=== PATIENT | male | born 1960 | race Caucasian/White ===

== ENCOUNTER 2019-09-27 14:22 | Inpatient (IN) | payer MEDICAID ==
[~2019-09-27] VITALS: Ht 167.6 cm; Wt 100.1 kg
[2019-09-27 15:48] LABS: ALANINE AMINOTRANSFERASE 44 U/L (12-78); ALBUMIN 3.2 G/DL (3.4-5.0); ALKALINE PHOSPHATASE 70 IU/L (46-116); ANION GAP 5 (8-16); ASPARTATE AMINO TRANSFERASE 20 U/L (10-37); BILIRUBIN,TOTAL 0.9 MG/DL (0.1-1.0); BLOOD UREA NITROGEN 26 MG/DL (7-18); BUN/CREATININE RATIO 18.6 (5.4-32.0); CALCIUM 8.5 MG/DL (8.5-10.1); CHLORIDE 103 MMOL/L (99-107); GLUCOSE 298 MG/DL (70-104); POTASSIUM 5.1 MMOL/L (3.5-5.1); SODIUM 141 MMOL/L (135-145); TOTAL CARBON DIOXIDE 33.3 MMOL/L (24-32); TOTAL PROTEIN 6.5 G/DL (6.4-8.2); eGFR 52 ML/MIN
[2019-09-27] MEDS ORDERED: nitroGLYCERIN 1gm ointment UD TP ONE (16:05)
[2019-09-27] MEDS ORDERED: furosemide 10 MG/1 ML 10ml inj IV ONE (16:05)
[2019-09-27] MEDS ORDERED: heparin 25,000 UNIT/250ml bag 250 ML IV SCH (16:07)
[2019-09-27] MEDS ORDERED: heparin 10,000 units/1 ML INJ IV ONE ×2 (16:10→16:30)
[2019-09-27 16:20] LABS: BASOPHILS # (AUTO) 0.1 X10'3 (0-0.2); BASOPHILS % (AUTO) 0.9 % (0-1); EOSINOPHILS # (AUTO) 0.1 X10'3 (0-0.9); EOSINOPHILS % (AUTO) 1.3 % (0-6); HEMATOCRIT 48.2 % (42.0-52.0); HEMOGLOBIN 15.9 g/dl (14.0-17.9); LYMPHOCYTES % (AUTO) 10.9 % (21-51); MEAN CORPUSCULAR HEMOGLOBIN 32.1 PG (27.0-31.0); MEAN CORPUSCULAR HGB CONC 32.9 g/dL (33.0-36.5); MEAN CORPUSCULAR VOLUME 97.5 FL (78-98); MEAN PLATELET VOLUME 9.1 FL (7.4-10.4); MONOCYTES # (AUTO) 0.9 X10'3 (0-0.9); MONOCYTES % (AUTO) 10.1 % (2-12); NEUTROPHILS # (AUTO) 6.8 X10'3 (1.8-7.7); NEUTROPHILS % (AUTO) 76.8 % (42-75); PLATELET COUNT 211 X10'3 (140-440); RED BLOOD COUNT 4.95 X10'6 (4.70-6.10); RED CELL DISTRIBUTION WIDTH 14.6 % (11.5-14.5); WHITE BLOOD COUNT 8.9 X10'3 (4.5-11.0)
[2019-09-27 16:21] LABS: ABG BASE EXCESS 3.2 mmol/L (-2.0-3.0); ABG HCO3 34.3 mmol/L (22.0-26.0); ABG OXYGEN SATURATION 93.1 % (95-98); ABG PCO2 (T) 83.9 mmHg (35.0-45.0); ALLEN'S TEST Positive; FCOHb 2.1 % (0.5-1.5); FLOW 2 L/min; FMetHb 0.2 % (0.3-1.12); TOTAL HEMOGLOBIN 16.6 G/dl (14.0-17.9)
--- NOTE | 2019-09-27 16:30 | NUR ---
came in to er for shortness of breath place on bipap by rt
[2019-09-27] MEDS ORDERED: VENL150C58 PO (17:05)
[2019-09-27] MEDS ORDERED: ATEN50TA2 PO (17:05)
[2019-09-27] MEDS ORDERED: BUDE10.2 PO (17:05)
[2019-09-27] MEDS ORDERED: METF-438 PO (17:05)
[2019-09-27] MEDS ORDERED: LISI40TA4 PO (17:05)
[2019-09-27] MEDS ORDERED: CHOL200016 PO (17:05)
[2019-09-27] MEDS ORDERED: ARIP10TA17 PO (17:05)
[2019-09-27] MEDS ORDERED: ALBU17AE26 PO (17:05)
[2019-09-27] MEDS ORDERED: HYDR-3972 PO (17:05)
[2019-09-27] MEDS ORDERED: HYDR25TA4 PO (17:05)
[2019-09-27] MEDS ORDERED: PRAV20TA4 PO (17:05)
[2019-09-27 17:46] LABS: ABG BASE EXCESS 3.1 mmol/L (-2.0-3.0); ABG HCO3 33.7 mmol/L (22.0-26.0); ABG PCO2 (T) 78.9 mmHg (35.0-45.0); ABG PH (T) 7.248 (7.350-7.450); ABG PO2 (T) 89.3 mmHg (83-108); ALLEN'S TEST Positive; FMetHb 0.4 % (0.3-1.12); FO2Hb 93.7 % (94-100); MINUTE VOLUME 7 L/min; RESPIRATORY RATE 20 b/min; RESPIRATORY RATE (OBSERVED) 21 b/min; TIDAL VOLUME 345 mL; TOTAL HEMOGLOBIN 16.9 G/dl (14.0-17.9)
--- NOTE | 2019-09-27 19:30 | NUR ---
pagged rt for abg ordered
--- NOTE | 2019-09-27 19:41 | NUR ---
rt at bedside for abg draw
--- NOTE | 2019-09-27 19:49 | NUR ---
contacted lab about the in progress status of the cardiac ptt 1727 and the 1730 3 hr troponin . lab reports that speciamn was not in lab and next draws are due in 45 min . the 2130 ptt and the 6 hr trop notified sarita roberto
[2019-09-27 19:51] LABS: ABG BASE EXCESS 5.1 mmol/L (-2.0-3.0); ABG HCO3 35.2 mmol/L (22.0-26.0); ABG OXYGEN SATURATION 97.1 % (95-98); ABG PCO2 (T) 76.3 mmHg (35.0-45.0); ABG PH (T) 7.282 (7.350-7.450); ABG PO2 (T) 97.6 mmHg (83-108); ALLEN'S TEST Positive; FCOHb 2.1 % (0.5-1.5); FMetHb 0.2 % (0.3-1.12); FO2Hb 94.9 % (94-100); PATIENT TEMPERATURE 37.1; TOTAL HEMOGLOBIN 16.7 G/dl (14.0-17.9)
[2019-09-27] MEDS ORDERED: ondansetron/PF 4mg/2ml inj IV PRN (20:15)
[2019-09-27] MEDS ORDERED: magnesium hydroxide 30ml (MOM) UD suspension PO PRN (20:15)
[2019-09-27] MEDS ORDERED: dextrose 50%-water 50ml dispensing syringe IV PRN ×2 (20:15)
[2019-09-27] MEDS ORDERED: glucagon, human recombinant 1mg kit SUBCUT PRN (20:15)
[2019-09-27] MEDS ORDERED: dextrose ORAL solution 15 GM/59 ML bottle PO PRN ×2 (20:15)
[2019-09-27] MEDS ORDERED: potassium Cl 20 mEq SR tablet PO PRN ×2 (20:15)
[2019-09-27] MEDS ORDERED: acetaminophen 325mg tablet PO PRN ×2 (20:15)
[2019-09-27] MEDS ORDERED: MESSAGE TO PHARMACY PO ONE (20:15)
[2019-09-27] MEDS ORDERED: albuterol 2.5 MG/3 ML nebule NEB PRN (20:15)
[2019-09-27] MEDS ORDERED: mag hydrox/Alum hydrox/simeth 30ml oral suspension PO PRN (20:15)
[2019-09-27] MEDS ORDERED: potassium CL 10mEq/100ml bag 100 ML IV PRN ×2 (20:15)
[2019-09-27 20:45] LABS: HEMOGLOBIN A1C 8.6 % (4.5-6.2)
[2019-09-27] MEDS: lisinopril 20mg tablet PO SCH (20:59)
[2019-09-27] MEDS: atorvastatin 20mg tablet PO SCH (21:00)
[2019-09-27] MEDS: insulin glargine (Lantus) pen - multi-dose SQ SCH (21:00)
--- NOTE | 2019-09-27 21:15 | NUR ---
Patient in room ED 15. I have received report from Javier GALVAN and had the opportunity to ask questions and assume patient care.
[2019-09-27 21:20] VITALS: BP 140/108
--- NOTE | 2019-09-27 21:20 | NUR ---
Pt arrived to the floor at 2119. Vital signs are stable, 2 RN skin check complete. MRSA swab collected. Pt oriented to medication times, vital signs times, meal times, and unit policies.
[2019-09-27] MEDS: budesonide 0.5mg/2ml UD nebule IH SCH (21:39)
[2019-09-27] MEDS: albuterol 2.5 MG/3 ML nebule NEB SCH (21:39)
[2019-09-27] MEDS: heparin 10,000 units/1 ML INJ IV PRN (21:46)
[2019-09-27] MEDS: heparin 25,000 UNIT/250ml bag 250 ML IV SCH (21:47)
[2019-09-27 23:00] VITALS: BP 143/111
[2019-09-28] VITALS (11 sets, daily range): BP systolic 100–146; BP diastolic 51–104
[2019-09-28] MEDS: HYDROcodone/acetaminophen 10/325mg tab PO PRN ×2 (02:47→07:36)
[2019-09-28 02:54] LABS: BASOPHILS # (AUTO) 0.1 X10'3 (0-0.2); BASOPHILS % (AUTO) 0.9 % (0-1); EOSINOPHILS # (AUTO) 0.3 X10'3 (0-0.9); EOSINOPHILS % (AUTO) 3.1 % (0-6); HEMATOCRIT 48.7 % (42.0-52.0); HEMOGLOBIN 16.1 g/dl (14.0-17.9); LYMPHOCYTES # (AUTO) 1.1 X10'3 (1.1-4.8); LYMPHOCYTES % (AUTO) 10.7 % (21-51); MEAN CORPUSCULAR HGB CONC 33.1 g/dL (33.0-36.5); MEAN CORPUSCULAR VOLUME 96.6 FL (78-98); MEAN PLATELET VOLUME 8.5 FL (7.4-10.4); MONOCYTES # (AUTO) 0.8 X10'3 (0-0.9); MONOCYTES % (AUTO) 8.4 % (2-12); NEUTROPHILS # (AUTO) 7.7 X10'3 (1.8-7.7); NEUTROPHILS % (AUTO) 76.9 % (42-75); PLATELET COUNT 193 X10'3 (140-440); RED BLOOD COUNT 5.04 X10'6 (4.70-6.10); RED CELL DISTRIBUTION WIDTH 14.5 % (11.5-14.5)
[2019-09-28 03:19] LABS: ALANINE AMINOTRANSFERASE 44 U/L (12-78); ALBUMIN 3.1 G/DL (3.4-5.0); ALKALINE PHOSPHATASE 70 IU/L (46-116); ANION GAP 2 (8-16); ASPARTATE AMINO TRANSFERASE 20 U/L (10-37); BLOOD UREA NITROGEN 23 MG/DL (7-18); BUN/CREATININE RATIO 15.4 (5.4-32.0); CALCIUM 8.5 MG/DL (8.5-10.1); CHLORIDE 103 MMOL/L (99-107); CREATININE 1.49 MG/DL (0.60-1.10); GLUCOSE 176 MG/DL (70-104); POTASSIUM 4.4 MMOL/L (3.5-5.1); SODIUM 144 MMOL/L (135-145); TOTAL CARBON DIOXIDE 39.2 MMOL/L (24-32); TOTAL PROTEIN 6.3 G/DL (6.4-8.2); eGFR 49 ML/MIN
[2019-09-28] MEDS: albuterol 2.5 MG/3 ML nebule NEB SCH ×4 (03:24→20:53)
--- NOTE | 2019-09-28 06:15 | NUR ---
Problems reprioritized. Patient report given, questions answered & plan of care reviewed with Neda GALVAN.
--- NOTE | 2019-09-28 06:35 | NUR ---
Patient in room PCU 3027. I have received report from MANDY MONSALVE and had the opportunity to ask questions and assume patient care.
[2019-09-28] MEDS: prednisone 10mg tablet PO SCH (07:22)
[2019-09-28] MEDS: ARIPIPRAZOLE 10 MG TABLET PO SCH (07:22)
[2019-09-28] MEDS: atenolol 50mg tablet PO SCH (07:23)
[2019-09-28] MEDS: venlafaxine XR 75mg capsule (Q24H) PO SCH (07:24)
[2019-09-28] MEDS: budesonide 0.5mg/2ml UD nebule IH SCH ×2 (07:32→20:53)
[2019-09-28] MEDS ORDERED: CHOLECALCIFEROL PO SCH (08:00)
[2019-09-28] MEDS ORDERED: HYDROchlorothiazide 25mg tablet PO SCH (08:00)
[2019-09-28] MEDS: K and/or MAG REPLACEMENT MC SCH ×2 (08:00→19:52)
[2019-09-28] MEDS: insulin Lispro (HumaLOG) vial - multi-dose SQ SCH ×2 (13:02→18:44)
[2019-09-28] MEDS: heparin 25,000 UNIT/250ml bag 250 ML IV SCH (14:06)
--- NOTE | 2019-09-28 15:21 | NUR ---
DM consult: Pt with A1c 8.6 seen at bedside. Pt reports he sees his MD q 3 months and states he takes his DM medications per rx. Pt reports he used to check his BG levels however stopped 3-4 months ago d/t them being consistently stable. Pt reports his BG levels were below 200, although current A1c is suggesting an average BG of 200. RD encouraged pt to monitor BG levels in order to get a better understanding of his DM management. Pt confirmed understanding. Pt reports he currently doesn't follow any special DM diet. Pt provided with written and verbal DM education with referral to outpatient DM class and RD contact information. Pt on a CHO controlled diet documented with 100% PO intake however pt reports he isn't getting full from meals. Pt agrees to double eggs q breakfast and double protein BIDLD, d/w dietary. Pt reports nausea this morning that has subsided and denies food allergies, difficulty chewing/swallowing, or constipation/diarrhea. Will continue to follow. Addendum: 09/28/19 at [address] Amended: Links added.
--- NOTE | 2019-09-28 18:30 | NUR ---
Patient in room PCU 3027. I have received report from Neda GALVAN and had the opportunity to ask questions and assume patient care.
--- NOTE | 2019-09-28 18:38 | NUR ---
Problems reprioritized. Patient report given, questions answered & plan of care reviewed with MANDY De Leon.
[2019-09-28] MEDS: furosemide 20 MG/2 ML vial IV SCH (20:21)
[2019-09-28] MEDS: atorvastatin 20mg tablet PO SCH (20:21)
[2019-09-28] MEDS: lisinopril 20mg tablet PO SCH (20:22)
[2019-09-28] MEDS: insulin glargine (Lantus) pen - multi-dose SQ SCH (21:20)
[2019-09-29] VITALS (8 sets, daily range): BP systolic 113–140; BP diastolic 67–88
[2019-09-29] MEDS: heparin 10,000 units/1 ML INJ IV PRN (01:36)
[2019-09-29] MEDS: albuterol 2.5 MG/3 ML nebule NEB SCH ×4 (02:38→20:13)
[2019-09-29 05:45] LABS: BASOPHILS # (AUTO) 0.1 X10'3 (0-0.2); BASOPHILS % (AUTO) 0.7 % (0-1); EOSINOPHILS # (AUTO) 0.2 X10'3 (0-0.9); EOSINOPHILS % (AUTO) 1.8 % (0-6); HEMOGLOBIN 14.6 g/dl (14.0-17.9); LYMPHOCYTES # (AUTO) 0.8 X10'3 (1.1-4.8); LYMPHOCYTES % (AUTO) 9.2 % (21-51); MEAN CORPUSCULAR HEMOGLOBIN 32.4 PG (27.0-31.0); MEAN CORPUSCULAR HGB CONC 33.3 g/dL (33.0-36.5); MEAN CORPUSCULAR VOLUME 97.2 FL (78-98); MEAN PLATELET VOLUME 8.5 FL (7.4-10.4); MONOCYTES # (AUTO) 0.7 X10'3 (0-0.9); MONOCYTES % (AUTO) 8.9 % (2-12); NEUTROPHILS # (AUTO) 6.6 X10'3 (1.8-7.7); NEUTROPHILS % (AUTO) 79.4 % (42-75); PLATELET COUNT 177 X10'3 (140-440); RED BLOOD COUNT 4.52 X10'6 (4.70-6.10); RED CELL DISTRIBUTION WIDTH 14.6 % (11.5-14.5); WHITE BLOOD COUNT 8.3 X10'3 (4.5-11.0)
[2019-09-29 05:58] LABS: ANION GAP -1 (8-16); BLOOD UREA NITROGEN 20 MG/DL (7-18); BUN/CREATININE RATIO 16.5 (5.4-32.0); CALCIUM 8.5 MG/DL (8.5-10.1); CHLORIDE 101 MMOL/L (99-107); CREATININE 1.21 MG/DL (0.60-1.10); GLUCOSE 103 MG/DL (70-104); SODIUM 143 MMOL/L (135-145); eGFR 62 ML/MIN
--- NOTE | 2019-09-29 06:04 | NUR ---
Problems reprioritized. Patient report given, questions answered & plan of care reviewed with Estrellita GALVAN.
--- NOTE | 2019-09-29 06:10 | NUR ---
Patient in room PCU 3027. I have received report from Haley GALVAN and had the opportunity to ask questions and assume patient care.
--- NOTE | 2019-09-29 06:21 | NUR ---
Pt had a critical CO2 of 43.0, Dr. Mcduffie notified, no orders received, will continue to monitor.
[2019-09-29] MEDS: atenolol 50mg tablet PO SCH (08:00)
[2019-09-29] MEDS: K and/or MAG REPLACEMENT MC SCH ×2 (08:00→20:00)
[2019-09-29] MEDS: furosemide 20 MG/2 ML vial IV SCH ×2 (08:02→19:40)
[2019-09-29] MEDS: vitamin D (cholecalciferol) 1,000 unit tablet PO SCH (08:03)
[2019-09-29] MEDS: venlafaxine XR 75mg capsule (Q24H) PO SCH (08:03)
[2019-09-29] MEDS: ARIPIPRAZOLE 10 MG TABLET PO SCH (08:03)
[2019-09-29] MEDS: prednisone 10mg tablet PO SCH (08:05)
[2019-09-29] MEDS: HYDROcodone/acetaminophen 10/325mg tab PO PRN ×3 (08:44→19:40)
[2019-09-29] MEDS: insulin Lispro (HumaLOG) vial - multi-dose SQ SCH ×3 (08:46→19:43)
--- NOTE | 2019-09-29 09:06 | NUR ---
Paged Dr. Elizabeth cason pt refusing atenolol this AM PAGER ID: [phone] MESSAGE: Estrellita GALVAN [phone] [address] rm [id number], JANAEI pt refused atenolol this AM, states he doesn't take it at home, SBP in 120s.
[2019-09-29] MEDS: budesonide 0.5mg/2ml UD nebule IH SCH ×2 (09:31→20:13)
[2019-09-29 11:35] LABS: ABG BASE EXCESS 12.8 mmol/L (-2.0-3.0); ABG HCO3 40.5 mmol/L (22.0-26.0); ABG OXYGEN SATURATION 80.6 % (95-98); ABG PH (T) 7.419 (7.350-7.450); ABG PO2 (T) 41.8 mmHg (83-108); ALLEN'S TEST Positive; FCOHb 1.4 % (0.5-1.5); FMetHb 0.1 % (0.3-1.12); FO2Hb 79.4 % (94-100); TOTAL HEMOGLOBIN 15.3 G/dl (14.0-17.9)
--- NOTE | 2019-09-29 11:38 | NUR ---
O2 Sat at rest on room air: 88% If below 89%: Recovery O2 Sat at rest on 2 LPM:88%: 92% via nasal cannula (mask/nasal cannula, etc..) No further documentation is necessary. If O2 Sat did not drop below 89% on room air,ambulate patient on room air. O2 Sat while ambulating on room air:___% Recovery O2 Sat while ambulating on ___LPM:___% No further documentation is necessary. If patient does not drop below 89% while ambulating, he/she does not qualify for home O2.
--- NOTE | 2019-09-29 14:34 | NUR ---
Daughter, Misti, called and was updated on the pts plan of care. States she lives in [place] and has a sick 2 year old, so she wont be able to come in. Wants to be called with any new information at [phone].
[2019-09-29] MEDS ORDERED: HYDR12.5 PO (15:07)
[2019-09-29] MEDS ORDERED: ALBU2.5V7 NEB (15:07)
--- NOTE | 2019-09-29 18:07 | NUR ---
Problems reprioritized. Patient report given, questions answered & plan of care reviewed with Nimco GALVAN.
--- NOTE | 2019-09-29 18:15 | NUR ---
Patient in room PCU 3027. I have received report from Estrellita GALVAN and had the opportunity to ask questions and assume patient care.
[2019-09-29] MEDS: heparin, porcine 5000 units/ml vial SQ SCH (19:40)
[2019-09-29] MEDS: lisinopril 20mg tablet PO SCH (21:13)
[2019-09-29] MEDS: insulin glargine (Lantus) pen - multi-dose SQ SCH (21:17)
[2019-09-29] MEDS: atorvastatin 20mg tablet PO SCH (21:18)
[2019-09-30 02:00] VITALS: BP 140/83
[2019-09-30] MEDS: albuterol 2.5 MG/3 ML nebule NEB SCH ×2 (03:00→08:21)
[2019-09-30 05:17] LABS: BASOPHILS % (AUTO) 0.5 % (0-1); EOSINOPHILS # (AUTO) 0.1 X10'3 (0-0.9); EOSINOPHILS % (AUTO) 0.8 % (0-6); HEMOGLOBIN 15.7 g/dl (14.0-17.9); LYMPHOCYTES # (AUTO) 0.8 X10'3 (1.1-4.8); LYMPHOCYTES % (AUTO) 8.3 % (21-51); MEAN CORPUSCULAR HEMOGLOBIN 31.9 PG (27.0-31.0); MEAN CORPUSCULAR HGB CONC 33.5 g/dL (33.0-36.5); MEAN CORPUSCULAR VOLUME 95.2 FL (78-98); MEAN PLATELET VOLUME 7.7 FL (7.4-10.4); MONOCYTES # (AUTO) 0.7 X10'3 (0-0.9); MONOCYTES % (AUTO) 7.4 % (2-12); NEUTROPHILS # (AUTO) 7.5 X10'3 (1.8-7.7); PLATELET COUNT 175 X10'3 (140-440); RED BLOOD COUNT 4.94 X10'6 (4.70-6.10); RED CELL DISTRIBUTION WIDTH 14.7 % (11.5-14.5); WHITE BLOOD COUNT 9.1 X10'3 (4.5-11.0)
[2019-09-30 05:20] LABS: PARTIAL THROMBOPLASTIN TIME 27 SECONDS (22-32)
[2019-09-30 05:31] LABS: ALBUMIN 3.2 G/DL (3.4-5.0); ANION GAP -4 (8-16); BLOOD UREA NITROGEN 27 MG/DL (7-18); BUN/CREATININE RATIO 23.7 (5.4-32.0); CALCIUM 8.7 MG/DL (8.5-10.1); CHLORIDE 102 MMOL/L (99-107); CREATININE 1.14 MG/DL (0.60-1.10); GLUCOSE 96 MG/DL (70-104); SODIUM 143 MMOL/L (135-145); eGFR 66 ML/MIN
[2019-09-30 05:32] LABS: TOTAL CARBON DIOXIDE 44.5 MMOL/L (24-32)
--- NOTE | 2019-09-30 05:36 | NUR ---
PAGER ID: [phone] MESSAGE: Camden Sheldon 58M admitted for acute respiratory failure and CHF, CO2 came back 44.5 this morning thank you Nimco GALVAN
[2019-09-30 06:00] VITALS: BP 144/99
--- NOTE | 2019-09-30 06:12 | NUR ---
Problems reprioritized. Patient report given, questions answered & plan of care reviewed with Estrellita GALVAN.
--- NOTE | 2019-09-30 06:23 | NUR ---
Patient in room PCU 3027. I have received report from Chiquita GALVAN and had the opportunity to ask questions and assume patient care.
[2019-09-30] MEDS: atenolol 50mg tablet PO SCH (07:37)
[2019-09-30] MEDS: prednisone 10mg tablet PO SCH (07:37)
[2019-09-30] MEDS: vitamin D (cholecalciferol) 1,000 unit tablet PO SCH (07:38)
[2019-09-30] MEDS: venlafaxine XR 75mg capsule (Q24H) PO SCH (07:38)
[2019-09-30] MEDS: furosemide 20 MG/2 ML vial IV SCH (07:38)
[2019-09-30] MEDS: ARIPIPRAZOLE 10 MG TABLET PO SCH (07:38)
[2019-09-30] MEDS: heparin, porcine 5000 units/ml vial SQ SCH (07:39)
[2019-09-30] MEDS: HYDROcodone/acetaminophen 10/325mg tab PO PRN (07:51)
[2019-09-30] MEDS: insulin Lispro (HumaLOG) vial - multi-dose SQ SCH (07:56)
[2019-09-30] MEDS: K and/or MAG REPLACEMENT MC SCH (08:00)
[2019-09-30] MEDS: budesonide 0.5mg/2ml UD nebule IH SCH (08:20)
[2019-09-30 11:00] VITALS: BP 106/65
--- NOTE | 2019-09-30 11:45 | NUR ---
Stable for discharge per MD, discharge instructions reviewed with the pt and all questions answered, F/U apt made for Oct 04 at 0945 at [facility] ([facility]), new prescriptions called into [facility] pharmacy, PIV and tele monitor discontinued, belongings collected and sent with the pt, left the unit at 1145 in wheelchair with nurses aide and family member to a private vehicle.
== END 2019-09-30 11:45 | disposition home or self-care (01) | DRG 133 ==
LOC: ER 14:22 → ED HOLD 20:15 → PCU 3S 21:27
PROVIDERS: ADMIT Hospitalist; ATTEND Internal Medicine
PROC: 5A09357 Assistance with Respiratory Ventilation, Less than 24 Consecutive Hours, Continuous Positive Airway Pressure (ICD-10-PCS; principal; 2019-09-27)
PROC: 5A09357 Assistance with Respiratory Ventilation, Less than 24 Consecutive Hours, Continuous Positive Airway Pressure (ICD-10-PCS; 2019-09-28)
PROC: 5A09357 Assistance with Respiratory Ventilation, Less than 24 Consecutive Hours, Continuous Positive Airway Pressure (ICD-10-PCS; 2019-09-29)
PROC: 5A09357 Assistance with Respiratory Ventilation, Less than 24 Consecutive Hours, Continuous Positive Airway Pressure (ICD-10-PCS; 2019-09-30)
DX: J96.01 Acute respiratory failure with hypoxia (principal); I21.4 Non-ST elevation (NSTEMI) myocardial infarction; I50.23 Acute on chronic systolic (congestive) heart failure; N17.9 Acute kidney failure, unspecified; I11.0 Hypertensive heart disease with heart failure; I27.20 Pulmonary hypertension, unspecified; J96.02 Acute respiratory failure with hypercapnia; J43.9 Emphysema, unspecified; E11.9 Type 2 diabetes mellitus without complications; E66.9 Obesity, unspecified; F12.90 Cannabis use, unspecified, uncomplicated; G47.30 Sleep apnea, unspecified; Z68.35 Body mass index [BMI] 35.0-35.9, adult; Z87.891 Personal history of nicotine dependence
CPT/HCPCS: 36415; 36600; 71045; 80048; 80053; 82803; 82948; 83036; 83880; 84484; 85018; 85025; 85730; 87081; 93005; 93306; 93970; 94640; 94660; 94760; 96374; 96375; 96376; 97116; 97161; 97530; 99291; G0378; J1644; J1815; J1940; J7512; J7626

== ENCOUNTER 2020-06-14 13:38 | Outpatient (CLI) | payer MEDICAID ==
[~2020-06-14 13:38] MED LIST: ALBU17AE26 PO; ALBU2.5V7 NEB; ARIP10TA17 PO; ATEN50TA2 PO; BUDE10.2 PO; CHOL200016 PO; HYDR-3972 PO; HYDR12.5 PO; LISI40TA4 PO; METF-438 PO; PRAV20TA4 PO; VENL150C58 PO
== END 2020-06-14 23:59 | disposition home or self-care (01) ==
LOC: CARD DIAG 13:38
PROVIDERS: ATTEND Internal Medicine Critical Care Medicine
DX: I08.8 Other rheumatic multiple valve diseases (principal)
CPT/HCPCS: 93306

== ENCOUNTER 2020-12-10 16:31 | Inpatient (IN) | payer MEDICAID ==
[~2020-12-10] VITALS: Ht 177.8 cm; Wt 123.1 kg
[~2020-12-10 16:31] MED LIST changes: +LISI40TA13 PO; -LISI40TA4 PO
[2020-12-10] MEDS ORDERED: NOREPINEPHRINE BITARTRATE/D5W 250 ML IV SCH (16:40)
[2020-12-10] MEDS ORDERED: midazolam 1 mg/ML 2ml injection ONE (16:49)
[2020-12-10] MEDS ORDERED: fentaNYL/PF 50MCG/1 ML 2ML syringe IV PRN ×2 (16:50→17:25)
[2020-12-10] MEDS: NORepinephrine 8mg/ 250ml NS 250 ML IV SCH (16:53)
--- NOTE | 2020-12-10 16:54 | NUR ---
Cooling measures started. Ice packs applied to axillary and groin. Temp [place] 34.5
[2020-12-10] MEDS ORDERED: CHOL100025 PO (16:55)
[2020-12-10] MEDS ORDERED: ALBU2.5V10 NEB (16:55)
[2020-12-10] MEDS ORDERED: LINA5TAB4 PO (16:55)
[2020-12-10] MEDS ORDERED: VENL225T3 PO (16:55)
[2020-12-10] MEDS ORDERED: DIPH25CA52 PO (16:55)
[2020-12-10 16:58] LABS: ABG HCO3 30.9 mmol/L (22.0-26.0); ABG OXYGEN SATURATION 83.6 % (94-97); ABG PCO2 (T) 70.4 mmHg (35.0-48.0); ABG PO2 (T) 48.1 mmHg (75.0-100.0); ALLEN'S TEST POSITIVE; FCOHb 1.4 % (0.0-3.9); FMetHb 0.2 % (0.0-1.5); FO2Hb 82.3 % (94-97); PATIENT TEMPERATURE 33.6; PEEP 5 cm H2O; RESPIRATORY RATE 24 b/min; TIDAL VOLUME 425 mL; TOTAL HEMOGLOBIN 15.2 G/dl (14.0-18.0)
--- NOTE | 2020-12-10 16:59 | NUR ---
Dr. Fritz at bedside for evaluation.
[2020-12-10] MEDS ORDERED: FURO-150 PO (17:02)
[2020-12-10] MEDS ORDERED: CARV-49 PO (17:02)
--- NOTE | 2020-12-10 17:20 | NUR ---
IN ROOM NOW, MORRO RNS IN ROOM ASSISTING: DR HASSAN PLACED RIGHT SUBCLAVIAN CENTRAL QUAD LUMEN, DR HANSEN ATTEMPTING LEFT RADIAL ARTERIAL LINE. SEE VITALS. ON VENT OETT 7.5 26 CM FIO2 100% ACPRVC TV 400 RATE 24 PEEP 5. SR. SPO2 95% TEMP FC IN PLACE, INTRAOSSEOUS LINES TO ANTERIOR BILATERAL LOWER LEGS, OG WITH YELLOW DRAINAGE TO LIS
[2020-12-10] MEDS ORDERED: midazolam 1 mg/ML 2ml injection IV ONE (17:25)
[2020-12-10] MEDS ORDERED: FENTANYL-0.9 % NACL/PF 100 ML IV PRN (17:25)
[2020-12-10] MEDS ORDERED: ondansetron/PF 4mg/2ml inj IV PRN (17:25)
[2020-12-10] MEDS ORDERED: acetaminophen 325mg tablet PO PRN ×2 (17:25)
[2020-12-10] MEDS ORDERED: ipratropium/albuterol 3ml nebule NEB PRN (17:25)
[2020-12-10] MEDS ORDERED: CISatracurium **Bolus** 2 mg/ml inj IV PRN (17:25)
[2020-12-10] MEDS ORDERED: midazolam 100mg in NS 100ml 100 ML IV PRN (17:25)
[2020-12-10] MEDS ORDERED: VANCOmycin 1250MG/NS 250ml Bag 250 ML IV ONE (17:35)
[2020-12-10 17:37] LABS: HEMOGLOBIN 13.9 g/dl (14.0-17.9); MEAN CORPUSCULAR HGB CONC 33.2 g/dL (33.0-36.5); MEAN PLATELET VOLUME 8.6 FL (7.4-10.4); MONOCYTES % (AUTO) 6.6 % (2-12)
[2020-12-10 17:39] LABS: BASOPHILS # (AUTO) 0.1 X10'3 (0-0.2); BASOPHILS % (AUTO) 0.4 % (0-1); EOSINOPHILS % (AUTO) 0.2 % (0-6); HEMATOCRIT 41.8 % (42.0-52.0); LYMPHOCYTES # (AUTO) 1.2 X10'3 (1.1-4.8); LYMPHOCYTES % (AUTO) 4.9 % (21-51); MEAN CORPUSCULAR VOLUME 99.4 FL (78-98); MONOCYTES # (AUTO) 1.5 X10'3 (0-0.9); NEUTROPHILS # (AUTO) 20.7 X10'3 (1.8-7.7); NEUTROPHILS % (AUTO) 87.9 % (42-75); PLATELET COUNT 296 X10'3 (140-440); RED CELL DISTRIBUTION WIDTH 14.7 % (11.5-14.5); WHITE BLOOD COUNT 23.5 X10'3 (4.5-11.0)
--- NOTE | 2020-12-10 17:46 | NUR ---
FENTANYL GTT 10 MCG/ML @ 25 MCG/HR TO IO, VERSED GTT 1MG@ 1MG/HR, AND NOREPI 8MG/250 ML @ 0.08MCG/KG/HR
--- NOTE | 2020-12-10 17:48 | NUR ---
REMOVED "ANCHOR" THAT WAS SUTURED TO NECK FROM APPARENT PREVIOUS CENTRAL LINE
--- NOTE | 2020-12-10 17:50 | NUR ---
DAUGHTER IOANA [phone] OUTSIDE READY TO COME IN AND SEE FATHER SOON ABLE. PLEASE CALL WITH UPDATE
[2020-12-10 17:59] LABS: NUCLEATED RED BLOOD CELLS 2 /100WBC (0-0); TOTAL CELLS COUNTED 100
[2020-12-10 18:00] LABS: GIANT PLATELET FEW; LARGE PLATELETS FEW; PLATELET ESTIMATE NORMAL
[2020-12-10 18:02] LABS: ALBUMIN 2.8 G/DL (3.4-5.0); ALBUMIN/GLOBULIN RATIO 0.7 (1.1-1.5); ALKALINE PHOSPHATASE 130 IU/L (46-116); ANION GAP 9 (8-16); BILIRUBIN,TOTAL 1.9 MG/DL (0.1-1.0); BLOOD UREA NITROGEN 46 MG/DL (7-18); BUN/CREATININE RATIO 15.4 (5.4-32.0); CALCIUM 8.5 MG/DL (8.5-10.1); CHLORIDE 100 MMOL/L (99-107); CREATININE 2.99 MG/DL (0.60-1.10); GLUCOSE 289 MG/DL (70-104); MAGNESIUM 2.2 MG/DL (1.5-2.4); POTASSIUM 4.8 MMOL/L (3.5-5.1); SODIUM 140 MMOL/L (135-145); TOTAL CARBON DIOXIDE 31.5 MMOL/L (24-32); TOTAL PROTEIN 6.7 G/DL (6.4-8.2); eGFR 22 ML/MIN
--- NOTE | 2020-12-10 18:02 | NUR ---
NOTE THAT SCANNER IN ROOM 4 IS NOT WORKING
[2020-12-10] MEDS ORDERED: dextrose 50%-water 50ml dispensing syringe IV PRN ×3 (18:05→21:25)
[2020-12-10] MEDS ORDERED: glucagon, human recombinant 1mg kit SUBCUT PRN (18:05)
[2020-12-10] MEDS ORDERED: dextrose ORAL solution 15 GM/59 ML bottle PO PRN ×2 (18:05)
[2020-12-10] MEDS ORDERED: MESSAGE TO PHARMACY PO ONE (18:05)
[2020-12-10] MEDS ORDERED: insulin Lispro (HumaLOG) vial - multi-dose SQ SCH (18:05)
[2020-12-10] MEDS: FENTANYL 1000MCG/NS 100 ML BAG /PF IV PRN ×2 (18:20→22:53)
[2020-12-10] MEDS: midazolam 100mg in NS 100ml 100 ML IV PRN ×2 (18:23→22:53)
[2020-12-10] MEDS: cefepime 2g/NS 100ml ADVANTAGE 100 ML IV SCH ×2 (18:24→22:56)
[2020-12-10] MEDS: normal saline 1000ml 1,000 ML IV SCH (18:30)
[2020-12-10 18:40] LABS: ALANINE AMINOTRANSFERASE 6869 U/L (12-78); ASPARTATE AMINO TRANSFERASE > 7000 U/L (10-37)
--- NOTE | 2020-12-10 18:44 | NUR ---
REPORT TO MANDY TRIPLETT. OETT 7.5 AT 26 CM TEETH: DISCUSSED PREVIOUS AIR LEAK: AIR HAD BEEN ADDED VIA MANOMETER AT 30MMHG, RESPIRATORY THERAPY ADDED ABBOUT 1 CM AIR WITH SYRINGE: NO AIR LEAK SINCE ADJUSTMENT ABOUT 30 MINUTES AGO 100 FIO2 ON VENT RATE 24 TV 400 SPO2 98%, NOT OVERBREATHING VENT DR HANSEN PLACED RIGHT RADIAL ART LINE , 2 PREVIOUS ATTEMPTS TO LEFT RADIAL OG TO LIS MADDEN FROM MATA'S REPLACED HERE WITH TEMP MADDEN ICE PACKS PLACED UPON ARRIVAL TO HEAD/NECK, GROIN, ARMPITS BILATERAL LOWER LEG IO X2 SUBCLAVIAN QUAD LUMEN WITH LEVOPHED AT 0.08MCG/KG/MIN, FENTANYL GTT AT 35 MCG/HR, VERSED GTT AT 1MG/HR, NS AT 250 ML/HR, FIRST ANTIBIOTIC RUNNING RN AWARE THAT VANCOMYCIN AND NIMBEX WILL BE COMING UP WITH PATIENT AND THAT PEPCID WAS NOT GIVEN NO URINE SENT: PATIENT HAS NO URINE OUTPUT PATIENT OPENED HIS EYES WHEN PREVIOUSLY PLACED PACER PADS AND EKG PADS REMOVED. PATIENT OPEN
[2020-12-10 19:00] LABS: HEMOGLOBIN A1C 9.2 % (4.5-6.2)
--- NOTE | 2020-12-10 19:04 | NUR ---
NOTE THAT PATIENT RECIEVED 4 ITERS NS PRE ARRIVAL
--- NOTE | 2020-12-10 19:10 | NUR ---
Patient in room ICU 2042. I have received report from JOVAN GALVAN and had the opportunity to ask questions and assume patient care.
[2020-12-10] MEDS: budesonide 0.5mg/2ml UD nebule IH SCH (19:26)
[2020-12-10] MEDS: ipratropium/albuterol 3ml nebule NEB SCH ×2 (19:26→22:59)
[2020-12-10 19:30] VITALS: BP 124/84
[2020-12-10 20:00] VITALS: BP 115/78
[2020-12-10 20:46] LABS: BASOPHILS % (AUTO) 0.2 % (0-1); RED CELL DISTRIBUTION WIDTH 14.9 % (11.5-14.5)
[2020-12-10 20:48] LABS: EOSINOPHILS % (AUTO) 0.1 % (0-6); HEMATOCRIT 42.6 % (42.0-52.0); HEMOGLOBIN 14.1 g/dl (14.0-17.9); LYMPHOCYTES # (AUTO) 0.7 X10'3 (1.1-4.8); LYMPHOCYTES % (AUTO) 2.9 % (21-51); MEAN CORPUSCULAR HEMOGLOBIN 33.4 PG (27.0-31.0); MEAN CORPUSCULAR HGB CONC 33.1 g/dL (33.0-36.5); MEAN CORPUSCULAR VOLUME 100.9 FL (78-98); MEAN PLATELET VOLUME 8.9 FL (7.4-10.4); MONOCYTES # (AUTO) 1.9 X10'3 (0-0.9); MONOCYTES % (AUTO) 7.5 % (2-12); NEUTROPHILS % (AUTO) 89.3 % (42-75); PLATELET COUNT 298 X10'3 (140-440); RED BLOOD COUNT 4.22 X10'6 (4.70-6.10); WHITE BLOOD COUNT 24.7 X10'3 (4.5-11.0)
[2020-12-10 20:54] LABS: PARTIAL THROMBOPLASTIN TIME 25 SECONDS (22-32)
[2020-12-10 20:57] LABS: D-DIMER > 35.20 MG/L FEU (0-0.50)
[2020-12-10 20:58] LABS: ALBUMIN 2.8 G/DL (3.4-5.0); ALBUMIN/GLOBULIN RATIO 0.7 (1.1-1.5); ALKALINE PHOSPHATASE 132 IU/L (46-116); ANION GAP 7 (8-16); BILIRUBIN,TOTAL 1.6 MG/DL (0.1-1.0); BLOOD UREA NITROGEN 49 MG/DL (7-18); BUN/CREATININE RATIO 15.6 (5.4-32.0); CALCIUM 8.5 MG/DL (8.5-10.1); CHLORIDE 101 MMOL/L (99-107); CREATININE 3.14 MG/DL (0.60-1.10); GLUCOSE 302 MG/DL (70-104); MAGNESIUM 2.2 MG/DL (1.5-2.4); PHOSPHORUS 6.9 MG/DL (2.3-4.5); POTASSIUM 5.4 MMOL/L (3.5-5.1); SODIUM 140 MMOL/L (135-145); TOTAL CARBON DIOXIDE 32.3 MMOL/L (24-32); TOTAL PROTEIN 6.8 G/DL (6.4-8.2); eGFR 20 ML/MIN
[2020-12-10 21:00] VITALS: BP 110/78
[2020-12-10] MEDS: insulin glargine (Lantus) pen - multi-dose SQ SCH (21:00)
[2020-12-10 21:05] LABS: PO2 MIXED VENOUS (TEMP COR) 58.2 mmHg (35-46)
[2020-12-10 21:10] LABS: ABG BASE EXCESS -3.2 mmol/L (-2.0-2.0); ABG HCO3 26.4 mmol/L (22.0-26.0); ABG OXYGEN SATURATION 99.6 % (94-97); ABG PCO2 (T) 68.1 mmHg (35.0-48.0); ABG PO2 (T) 352.9 mmHg (75.0-100.0); FCOHb 0.8 % (0.0-3.9); FMetHb 0.4 % (0.0-1.5); FO2Hb 98.4 % (94-97); PATIENT TEMPERATURE 36.8; PEEP 5 cm H2O; RESPIRATORY RATE 24 b/min; TOTAL HEMOGLOBIN 14.6 G/dl (14.0-18.0)
[2020-12-10] MEDS: albuterol 2.5 MG/3 ML nebule NEB SCH (21:12)
[2020-12-10 21:23] LABS: ALANINE AMINOTRANSFERASE 5692 U/L (12-78); ASPARTATE AMINO TRANSFERASE > 7000 U/L (10-37)
[2020-12-10] MEDS ORDERED: insulin Lispro (HumaLOG) vial - multi-dose SQ PRN (21:25)
[2020-12-10 22:00] VITALS: BP 117/76
[2020-12-10 22:04] LABS: CLARITY,URINE TURBID (Clear); COLOR,URINE YELLOW (Yellow); GLUCOSE, URINE 100 mg/dl (Neg); KETONES,URINE TRACE mg/dl (Neg); LEUKOCYTE ESTERASE ,URINE TRACE (Neg); NITRITES, URINE NEGATIVE (Neg); OCCULT BLOOD,URINE LARGE (Neg); PROTEIN,URINE >=300 mg/dl (Neg)
[2020-12-10 22:05] LABS: UA COLLECTION TYPE FOLEY CATH
[2020-12-10 22:14] LABS: SODIUM,URINE RANDOM < 15 MEQ/L
[2020-12-10 22:16] LABS: URINE AMPHETAMINE SCREEN NEGATIVE (Neg); URINE BARBITUATE SCREEN NEGATIVE (Neg); URINE BENZODIAZEPINES SCREEN POSITIVE (Neg); URINE CANNABINOID SCREEN NEGATIVE (Neg); URINE COCAINE SCREEN NEGATIVE (Neg); URINE METHADONE SCREEN NEGATIVE (Neg); URINE OPIATE SCREEN POSITIVE (Neg); URINE PHENCYCLIDINE SCREEN NEGATIVE (Neg)
[2020-12-10 22:17] LABS: BACTERIA,URINE 1+ /HPF (Neg); RBC,URINE 20-50 /HPF (0-2); SQUAMOUS EPITHELIAL CELL,UR FEW /LPF (FEW)
[2020-12-10 22:18] LABS: AMORPHOUS PHOSPHATES 4+
[2020-12-10] MEDS: Insulin Reg/NS 100units/100mL 100 ML IV SCH (22:56)
[2020-12-10] MEDS: pravastatin 40mg tablet PO SCH (22:57)
[2020-12-10] MEDS: famotidine/PF 10 mg/ml inj IV SCH (22:57)
[2020-12-10] MEDS: docusate sod 100mg capsule PO SCH (22:58)
[2020-12-10] MEDS: heparin, porcine 5000 units/ml vial SQ SCH (22:58)
[2020-12-10] MEDS: CISatracurium besylate inj. 100 MG in normal saline 100ml IV soln 90 ML IV PRN (22:59)
[2020-12-10 23:00] VITALS: BP 109/78
[2020-12-10 23:07] LABS: TOTAL PROTEIN,URINE RANDOM 1291.2 MG/DL
[2020-12-10 23:10] LABS: UA EOSINOPHILS FEW EOS /HPF
[2020-12-11] VITALS (24 sets, daily range): BP systolic 103–190; BP diastolic 63–112
[2020-12-11] MEDS ORDERED: propofol 1000mg/100ml bottle 100 ML IV SCH (00:15)
[2020-12-11] MEDS ORDERED: niCARDipine-NS 40mg/200ml IVPB 200 ML IV PRN (00:15)
[2020-12-11] MEDS ORDERED: propofol 1000mg/100ml bottle 100 ML IV ONE (00:21)
[2020-12-11] MEDS ORDERED: niCARDipine-NS 40mg/200ml IVPB 200 ML IV ONE (00:22)
[2020-12-11 01:06] LABS: BASOPHILS % (AUTO) 0.2 % (0-1); EOSINOPHILS % (AUTO) 0.1 % (0-6); HEMOGLOBIN 13.2 g/dl (14.0-17.9); LYMPHOCYTES # (AUTO) 0.6 X10'3 (1.1-4.8); LYMPHOCYTES % (AUTO) 3.9 % (21-51); MEAN CORPUSCULAR HEMOGLOBIN 32.9 PG (27.0-31.0); MEAN CORPUSCULAR VOLUME 99.6 FL (78-98); MEAN PLATELET VOLUME 8.7 FL (7.4-10.4); MONOCYTES # (AUTO) 0.3 X10'3 (0-0.9); MONOCYTES % (AUTO) 1.9 % (2-12); NEUTROPHILS # (AUTO) 13.6 X10'3 (1.8-7.7); NEUTROPHILS % (AUTO) 93.9 % (42-75); PLATELET COUNT 194 X10'3 (140-440); RED BLOOD COUNT 4.02 X10'6 (4.70-6.10); RED CELL DISTRIBUTION WIDTH 14.3 % (11.5-14.5); WHITE BLOOD COUNT 14.5 X10'3 (4.5-11.0)
[2020-12-11 01:14] LABS: PARTIAL THROMBOPLASTIN TIME 26 SECONDS (22-32)
[2020-12-11 01:25] LABS: ALBUMIN 2.4 G/DL (3.4-5.0); ALBUMIN/GLOBULIN RATIO 0.6 (1.1-1.5); ALKALINE PHOSPHATASE 118 IU/L (46-116); ANION GAP 13 (8-16); BILIRUBIN,TOTAL 1.3 MG/DL (0.1-1.0); BLOOD UREA NITROGEN 53 MG/DL (7-18); BUN/CREATININE RATIO 17.4 (5.4-32.0); CALCIUM 7.9 MG/DL (8.5-10.1); CHLORIDE 99 MMOL/L (99-107); CREATININE 3.05 MG/DL (0.60-1.10); GLUCOSE 320 MG/DL (70-104); PHOSPHORUS 5.6 MG/DL (2.3-4.5); POTASSIUM 4.5 MMOL/L (3.5-5.1); SODIUM 136 MMOL/L (135-145); TOTAL CARBON DIOXIDE 24.5 MMOL/L (24-32); TOTAL PROTEIN 6.4 G/DL (6.4-8.2); TRIGLYCERIDES 207 MG/DL (20-135); eGFR 21 ML/MIN
[2020-12-11] MEDS: FENTANYL 1000MCG/NS 100 ML BAG /PF IV PRN ×4 (01:46→17:20)
[2020-12-11 02:03] LABS: ALANINE AMINOTRANSFERASE 5281 U/L (12-78); ASPARTATE AMINO TRANSFERASE > 7000 U/L (10-37)
[2020-12-11] MEDS: midazolam 100mg in NS 100ml 100 ML IV PRN ×2 (03:32→13:46)
[2020-12-11] MEDS: normal saline 1000ml 1,000 ML IV SCH ×3 (03:35→15:25)
[2020-12-11] MEDS: albuterol 2.5 MG/3 ML nebule NEB SCH (03:51)
[2020-12-11] MEDS: ipratropium/albuterol 3ml nebule NEB SCH ×5 (03:51→19:25)
[2020-12-11 05:12] LABS: ABG BASE EXCESS -0.8 mmol/L (-2.0-2.0); ABG HCO3 25.7 mmol/L (22.0-26.0); ABG OXYGEN SATURATION 94.1 % (94-97); ABG PO2 (T) 62.4 mmHg (75.0-100.0); FCOHb 0.2 % (0.0-3.9); FMetHb 0.3 % (0.0-1.5); FO2Hb 93.6 % (94-97); PATIENT TEMPERATURE 33.1; PEEP 5 cm H2O; RESPIRATORY RATE 20 b/min; TIDAL VOLUME 485 mL; TOTAL HEMOGLOBIN 13.2 G/dl (14.0-18.0)
[2020-12-11] MEDS: Insulin Reg/NS 100units/100mL 100 ML IV SCH ×8 (06:03→20:05)
[2020-12-11 06:30] LABS: BASOPHILS % (AUTO) 0.3 % (0-1); EOSINOPHILS % (AUTO) 0 % (0-6); HEMATOCRIT 37.3 % (42.0-52.0); HEMOGLOBIN 12.4 g/dl (14.0-17.9); LYMPHOCYTES # (AUTO) 0.6 X10'3 (1.1-4.8); LYMPHOCYTES % (AUTO) 4.9 % (21-51); MEAN CORPUSCULAR HEMOGLOBIN 33.1 PG (27.0-31.0); MEAN CORPUSCULAR HGB CONC 33.2 g/dL (33.0-36.5); MEAN CORPUSCULAR VOLUME 99.6 FL (78-98); MEAN PLATELET VOLUME 8.8 FL (7.4-10.4); MONOCYTES # (AUTO) 0.5 X10'3 (0-0.9); MONOCYTES % (AUTO) 4.1 % (2-12); NEUTROPHILS # (AUTO) 11.3 X10'3 (1.8-7.7); NEUTROPHILS % (AUTO) 90.7 % (42-75); PLATELET COUNT 173 X10'3 (140-440); RED BLOOD COUNT 3.74 X10'6 (4.70-6.10); RED CELL DISTRIBUTION WIDTH 14.5 % (11.5-14.5); WHITE BLOOD COUNT 12.5 X10'3 (4.5-11.0)
[2020-12-11 06:45] LABS: ALBUMIN 2.2 G/DL (3.4-5.0); ANION GAP 13 (8-16); BLOOD UREA NITROGEN 57 MG/DL (7-18); BUN/CREATININE RATIO 17.3 (5.4-32.0); CALCIUM 7.7 MG/DL (8.5-10.1); CHLORIDE 100 MMOL/L (99-107); GLUCOSE 334 MG/DL (70-104); MAGNESIUM 1.9 MG/DL (1.5-2.4); PHOSPHORUS 4.2 MG/DL (2.3-4.5); POTASSIUM 3.6 MMOL/L (3.5-5.1); SODIUM 139 MMOL/L (135-145); TOTAL CARBON DIOXIDE 26.1 MMOL/L (24-32); TROPONIN I 0.48 NG/ML (0.0-0.05); eGFR 19 ML/MIN
--- NOTE | 2020-12-11 06:48 | NUR ---
Problems reprioritized. Patient report given, questions answered & plan of care reviewed with MATEO GALVAN.
[2020-12-11] MEDS: budesonide 0.5mg/2ml UD nebule IH SCH ×2 (07:28→19:25)
[2020-12-11] MEDS: NORepinephrine 8mg/ 250ml NS 250 ML IV SCH ×2 (07:30→16:38)
[2020-12-11] MEDS: linagliptin 5mg tablet PO SCH (07:31)
[2020-12-11] MEDS: venlafaxine XR 75mg capsule (Q24H) PO SCH (07:31)
[2020-12-11] MEDS: ARIPIPRAZOLE 10 MG TABLET PO SCH (07:31)
[2020-12-11] MEDS: docusate sod 100mg capsule PO SCH (07:31)
[2020-12-11] MEDS: vitamin D (cholecalciferol) 1,000 unit tablet PO SCH (07:32)
[2020-12-11] MEDS: cefepime 2g/NS 100ml ADVANTAGE 100 ML IV SCH ×2 (07:39→20:03)
[2020-12-11] MEDS: famotidine/PF 10 mg/ml inj IV SCH ×2 (07:39→20:02)
[2020-12-11] MEDS: heparin, porcine 5000 units/ml vial SQ SCH ×2 (07:40→20:03)
[2020-12-11] MEDS ORDERED: non-formulary drug (Cholecalciferol (Vitamin D) 2 TAB) PO SCH (08:00)
[2020-12-11] MEDS ORDERED: sodium phosphate inj. 15 MMOL in dextrose 5%-water 250 ML IV PRN (10:40)
[2020-12-11] MEDS ORDERED: magnesium 2GM in 50ml NS 50 ML IV PRN (10:40)
[2020-12-11] MEDS ORDERED: magnesium 4gm in 100ml NS 100 ML IV PRN (10:40)
[2020-12-11] MEDS ORDERED: potassium Cl 40MEQ/250ML bag 270 ML IV PRN ×2 (10:40)
[2020-12-11] MEDS ORDERED: sodium phosphate inj. 30 MMOL in dextrose 5%-water 250 ML IV PRN (10:40)
[2020-12-11 12:30] LABS: ALBUMIN 2.3 G/DL (3.4-5.0); ANION GAP 13 (8-16); BLOOD UREA NITROGEN 61 MG/DL (7-18); BUN/CREATININE RATIO 16.2 (5.4-32.0); CALCIUM 7.8 MG/DL (8.5-10.1); CHLORIDE 102 MMOL/L (99-107); CREATINE KINASE 610 U/L (39-308); CREATININE 3.76 MG/DL (0.60-1.10); GLUCOSE 272 MG/DL (70-104); MAGNESIUM 1.9 MG/DL (1.5-2.4); POTASSIUM 3.2 MMOL/L (3.5-5.1); SODIUM 140 MMOL/L (135-145); TOTAL CARBON DIOXIDE 25.1 MMOL/L (24-32); TROPONIN I 0.36 NG/ML (0.0-0.05); eGFR 17 ML/MIN
[2020-12-11] MEDS: potassium Cl 20 mEq/100mL bag IV PRN ×2 (12:59→15:49)
[2020-12-11 13:09] LABS: ABG BASE EXCESS -0.6 mmol/L (-2.0-2.0); ABG HCO3 22.4 mmol/L (22.0-26.0); ABG OXYGEN SATURATION 94.2 % (94-97); ABG PO2 (T) 53.7 mmHg (75.0-100.0); FCOHb 0.4 % (0.0-3.9); FMetHb 0.1 % (0.0-1.5); FO2Hb 93.7 % (94-97); RESPIRATORY RATE 20 b/min; TIDAL VOLUME 811 mL; TOTAL HEMOGLOBIN 13.7 G/dl (14.0-18.0)
--- NOTE | 2020-12-11 13:54 | NUR ---
Adalid/DM Consults: Pt intubated s/p cardiac arrest current on cooling measures DX MALLORY, sepsis, T2DM A1C 9.2, acute respiratory failure, possible pulmonary HTN, and EF 45-50% per EMR. NPO at this time w/ OG in place and MAP 87 during rounds. Adalid 10 w/ skin intact per EMR. Started on insulin drip for Glu consistently over 300 since admit; noted receiving pulmicort. EN recs below in case prolonged intubation. Will continue to monitor for nutrition needs on vent. Rec: 1. IF TF; Vital High Protein at 85ml/hr goal 2. IF TF; water flush 100ml Q4 3. IF TF; PALB Q /; daily wts 4. routine bowel care 5. upon extubation; advance diet as medically indicated to carb controlled/heart healthy 6. DM ed once appropriate as medically indicated following extubation; deferred at this time. Addendum: 12/11/20 at [address] Amended: Links added.
[2020-12-11 14:32] LABS: AMYLASE 118 U/L (25-115); LIPASE 171 U/L (73-393)
[2020-12-11] MEDS: CISatracurium besylate inj. 100 MG in normal saline 100ml IV soln 90 ML IV PRN (15:06)
[2020-12-11 17:28] LABS: ALBUMIN 2.1 G/DL (3.4-5.0); ANION GAP 13 (8-16); BLOOD UREA NITROGEN 64 MG/DL (7-18); BUN/CREATININE RATIO 16.9 (5.4-32.0); CALCIUM 7.5 MG/DL (8.5-10.1); CHLORIDE 105 MMOL/L (99-107); CKMB RELATIVE INDEX 3.3 RATIO (0-2.5); CREATINE KINASE 484 U/L (39-308); CREATININE 3.79 MG/DL (0.60-1.10); GLUCOSE 193 MG/DL (70-104); MAGNESIUM 1.8 MG/DL (1.5-2.4); POTASSIUM 3.6 MMOL/L (3.5-5.1); SODIUM 142 MMOL/L (135-145); TOTAL CARBON DIOXIDE 24.2 MMOL/L (24-32); TROPONIN I 0.27 NG/ML (0.0-0.05); eGFR 16 ML/MIN
[2020-12-11] MEDS ORDERED: albumin (human) 25% 100 ML IV solution IV ONE (17:40)
[2020-12-11 17:48] LABS: ABG BASE EXCESS -4.8 mmol/L (-2.0-2.0); ABG HCO3 20.6 mmol/L (22.0-26.0); ABG PO2 (T) 60.5 mmHg (75.0-100.0); FCOHb 0.1 % (0.0-3.9); FMetHb 0.2 % (0.0-1.5); FO2Hb 92.7 % (94-97); PATIENT TEMPERATURE 32.9; PEEP 8 cm H2O; RESPIRATORY RATE 16 b/min; TIDAL VOLUME 563 mL; TOTAL HEMOGLOBIN 13.1 G/dl (14.0-18.0)
--- NOTE | 2020-12-11 18:30 | NUR ---
Patient in room ICU 2042. I have received report from Saida GALVAN and Susy GALVAN and had the opportunity to ask questions and assume patient care.
[2020-12-11] MEDS: K, MAG and/or Phos replacement - Verify level? MC SCH (20:00)
[2020-12-11] MEDS: mineral oil/petrolatum ophthal oint EACHEYE SCH (20:02)
[2020-12-11] MEDS: docusate sodium 100mg/10ml UD cup OGT SCH (20:02)
[2020-12-11] MEDS: pravastatin 40mg tablet PO SCH (20:02)
[2020-12-11] MEDS: insulin glargine (Lantus) pen - multi-dose SQ SCH (20:57)
[2020-12-12] VITALS (25 sets, daily range): BP systolic 86–136; BP diastolic 50–81
[2020-12-12] MEDS: FENTANYL 1000MCG/NS 100 ML BAG /PF IV PRN ×3 (00:32→17:30)
[2020-12-12] MEDS: normal saline 1000ml 1,000 ML IV SCH ×2 (00:32→17:29)
[2020-12-12 00:42] LABS: HEMATOCRIT 36.2 % (42.0-52.0); HEMOGLOBIN 12.1 g/dl (14.0-17.9); MEAN CORPUSCULAR HEMOGLOBIN 32.6 PG (27.0-31.0); RED BLOOD COUNT 3.71 X10'6 (4.70-6.10); WHITE BLOOD COUNT 12.9 X10'3 (4.5-11.0)
[2020-12-12 00:44] LABS: BASOPHILS % (AUTO) 0.2 % (0-1); EOSINOPHILS % (AUTO) 0 % (0-6); LYMPHOCYTES # (AUTO) 0.5 X10'3 (1.1-4.8); LYMPHOCYTES % (AUTO) 4.1 % (21-51); MEAN CORPUSCULAR HGB CONC 33.3 g/dL (33.0-36.5); MEAN CORPUSCULAR VOLUME 97.7 FL (78-98); MEAN PLATELET VOLUME 8.6 FL (7.4-10.4); MONOCYTES # (AUTO) 0.7 X10'3 (0-0.9); MONOCYTES % (AUTO) 5.7 % (2-12); NEUTROPHILS # (AUTO) 11.6 X10'3 (1.8-7.7); PLATELET COUNT 140 X10'3 (140-440); RED CELL DISTRIBUTION WIDTH 14.9 % (11.5-14.5)
[2020-12-12 01:04] LABS: ALBUMIN 2.4 G/DL (3.4-5.0); ALBUMIN/GLOBULIN RATIO 0.8 (1.1-1.5); ALKALINE PHOSPHATASE 88 IU/L (46-116); ANION GAP 12 (8-16); BLOOD UREA NITROGEN 71 MG/DL (7-18); BUN/CREATININE RATIO 17.9 (5.4-32.0); CALCIUM 7.3 MG/DL (8.5-10.1); CHLORIDE 104 MMOL/L (99-107); CKMB RELATIVE INDEX 3.7 RATIO (0-2.5); CREATINE KINASE 367 U/L (39-308); CREATININE 3.96 MG/DL (0.60-1.10); GLUCOSE 110 MG/DL (70-104); MAGNESIUM 1.9 MG/DL (1.5-2.4); PHOSPHORUS 4.2 MG/DL (2.3-4.5); POTASSIUM 3.6 MMOL/L (3.5-5.1); SODIUM 141 MMOL/L (135-145); TOTAL CARBON DIOXIDE 25.1 MMOL/L (24-32); TOTAL PROTEIN 5.6 G/DL (6.4-8.2); TRIGLYCERIDES 117 MG/DL (20-135); TROPONIN I 0.21 NG/ML (0.0-0.05); eGFR 16 ML/MIN
[2020-12-12 01:20] LABS: ALANINE AMINOTRANSFERASE 3570 U/L (12-78); ASPARTATE AMINO TRANSFERASE 2840 U/L (10-37)
[2020-12-12] MEDS: mineral oil/petrolatum ophthal oint EACHEYE SCH ×4 (02:12→20:42)
[2020-12-12] MEDS: ipratropium/albuterol 3ml nebule NEB SCH ×7 (03:26→23:22)
[2020-12-12 03:42] LABS: ABG BASE EXCESS -1.8 mmol/L (-2.0-2.0); ABG HCO3 24.4 mmol/L (22.0-26.0); ABG OXYGEN SATURATION 94.2 % (94-97); ABG PCO2 (T) 41.1 mmHg (35.0-48.0); ABG PO2 (T) 66.6 mmHg (75.0-100.0); FCOHb 0.2 % (0.0-3.9); FMetHb 0.2 % (0.0-1.5); FO2Hb 93.8 % (94-97); PATIENT TEMPERATURE 33.8; PEEP 8 cm H2O; RESPIRATORY RATE 16 b/min; TOTAL HEMOGLOBIN 13.2 G/dl (14.0-18.0)
[2020-12-12] MEDS: NORepinephrine 8mg/ 250ml NS 250 ML IV SCH (05:37)
[2020-12-12] MEDS: Insulin Reg/NS 100units/100mL 100 ML IV SCH (05:39)
--- NOTE | 2020-12-12 06:09 | NUR ---
Problems reprioritized. Patient report given, questions answered & plan of care reviewed with MATEO GALVAN & GERSON GALVAN.
[2020-12-12] MEDS: linagliptin 5mg tablet PO SCH (07:08)
[2020-12-12] MEDS: ARIPIPRAZOLE 10 MG TABLET PO SCH (07:08)
[2020-12-12] MEDS: vitamin D (cholecalciferol) 1,000 unit tablet PO SCH (07:08)
[2020-12-12] MEDS: venlafaxine XR 75mg capsule (Q24H) PO SCH (07:08)
[2020-12-12] MEDS: docusate sodium 100mg/10ml UD cup OGT SCH ×2 (07:08→20:42)
[2020-12-12] MEDS: K, MAG and/or Phos replacement - Verify level? MC SCH (07:09)
[2020-12-12 07:11] LABS: ALBUMIN 2.4 G/DL (3.4-5.0); ALBUMIN/GLOBULIN RATIO 0.7 (1.1-1.5); ALKALINE PHOSPHATASE 93 IU/L (46-116); ANION GAP 12 (8-16); BLOOD UREA NITROGEN 70 MG/DL (7-18); BUN/CREATININE RATIO 16.9 (5.4-32.0); CALCIUM 7.2 MG/DL (8.5-10.1); CHLORIDE 106 MMOL/L (99-107); CREATININE 4.15 MG/DL (0.60-1.10); GLUCOSE 146 MG/DL (70-104); MAGNESIUM 1.9 MG/DL (1.5-2.4); PHOSPHORUS 5.4 MG/DL (2.3-4.5); SODIUM 144 MMOL/L (135-145); TOTAL CARBON DIOXIDE 25.8 MMOL/L (24-32); TOTAL PROTEIN 5.8 G/DL (6.4-8.2); eGFR 15 ML/MIN
[2020-12-12 07:30] LABS: ALANINE AMINOTRANSFERASE 4004 U/L (12-78); ASPARTATE AMINO TRANSFERASE 2690 U/L (10-37)
[2020-12-12] MEDS: budesonide 0.5mg/2ml UD nebule IH SCH ×2 (07:47→19:38)
[2020-12-12] MEDS: heparin, porcine 5000 units/ml vial SQ SCH (08:06)
[2020-12-12] MEDS: famotidine/PF 10 mg/ml inj IV SCH (08:06)
[2020-12-12] MEDS: cefepime 2g/NS 100ml ADVANTAGE 100 ML IV SCH (08:06)
[2020-12-12] MEDS: midazolam 100mg in NS 100ml 100 ML IV PRN (08:18)
[2020-12-12] MEDS: Duosol 4K/3 Ca (w/calcium) 5,000 ML HE SCH ×3 (10:37→10:39)
[2020-12-12 11:56] LABS: MEAN PLATELET VOLUME 8.7 FL (7.4-10.4); MONOCYTES # (AUTO) 0.8 X10'3 (0-0.9)
[2020-12-12 11:58] LABS: BASOPHILS # (AUTO) 0.1 X10'3 (0-0.2); BASOPHILS % (AUTO) 0.3 % (0-1); EOSINOPHILS % (AUTO) 0.1 % (0-6); HEMATOCRIT 38.3 % (42.0-52.0); HEMOGLOBIN 12.5 g/dl (14.0-17.9); LYMPHOCYTES # (AUTO) 0.6 X10'3 (1.1-4.8); LYMPHOCYTES % (AUTO) 2.9 % (21-51); MEAN CORPUSCULAR HEMOGLOBIN 32.4 PG (27.0-31.0); MEAN CORPUSCULAR HGB CONC 32.7 g/dL (33.0-36.5); MEAN CORPUSCULAR VOLUME 99.3 FL (78-98); MONOCYTES % (AUTO) 3.4 % (2-12); NEUTROPHILS # (AUTO) 20.6 X10'3 (1.8-7.7); NEUTROPHILS % (AUTO) 93.3 % (42-75); PLATELET COUNT 217 X10'3 (140-440); RED BLOOD COUNT 3.86 X10'6 (4.70-6.10); RED CELL DISTRIBUTION WIDTH 15.4 % (11.5-14.5)
[2020-12-12 12:18] LABS: ALBUMIN 2.5 G/DL (3.4-5.0); ANION GAP 11 (8-16); BLOOD UREA NITROGEN 71 MG/DL (7-18); BUN/CREATININE RATIO 15.3 (5.4-32.0); CHLORIDE 105 MMOL/L (99-107); CKMB RELATIVE INDEX 4.4 RATIO (0-2.5); CREATINE KINASE 258 U/L (39-308); CREATININE 4.65 MG/DL (0.60-1.10); GLUCOSE 122 MG/DL (70-104); MAGNESIUM 1.9 MG/DL (1.5-2.4); PHOSPHORUS 6.2 MG/DL (2.3-4.5); POTASSIUM 4.6 MMOL/L (3.5-5.1); SODIUM 144 MMOL/L (135-145); TOTAL CARBON DIOXIDE 27.6 MMOL/L (24-32); TROPONIN I 0.17 NG/ML (0.0-0.05); eGFR 13 ML/MIN
[2020-12-12 12:47] LABS: BASOPHILS # (AUTO) 0.2 X10'3 (0-0.2); BASOPHILS % (AUTO) 0.7 % (0-1); EOSINOPHILS % (AUTO) 0 % (0-6); HEMATOCRIT 39.3 % (42.0-52.0); HEMOGLOBIN 12.9 g/dl (14.0-17.9); LYMPHOCYTES # (AUTO) 0.6 X10'3 (1.1-4.8); LYMPHOCYTES % (AUTO) 2.6 % (21-51); MEAN CORPUSCULAR HEMOGLOBIN 32.8 PG (27.0-31.0); MEAN CORPUSCULAR HGB CONC 32.9 g/dL (33.0-36.5); MEAN CORPUSCULAR VOLUME 99.7 FL (78-98); MEAN PLATELET VOLUME 8.6 FL (7.4-10.4); MONOCYTES % (AUTO) 4.3 % (2-12); NEUTROPHILS % (AUTO) 92.4 % (42-75); PLATELET COUNT 217 X10'3 (140-440); RED BLOOD COUNT 3.94 X10'6 (4.70-6.10); RED CELL DISTRIBUTION WIDTH 15.1 % (11.5-14.5); WHITE BLOOD COUNT 23.8 X10'3 (4.5-11.0)
[2020-12-12 12:56] LABS: ALBUMIN 2.5 G/DL (3.4-5.0); ANION GAP 9 (8-16); BLOOD UREA NITROGEN 66 MG/DL (7-18); BUN/CREATININE RATIO 15.8 (5.4-32.0); CHLORIDE 106 MMOL/L (99-107); CREATININE 4.18 MG/DL (0.60-1.10); GLUCOSE 117 MG/DL (70-104); MAGNESIUM 1.9 MG/DL (1.5-2.4); PHOSPHORUS 5.1 MG/DL (2.3-4.5); POTASSIUM 4.6 MMOL/L (3.5-5.1); SODIUM 142 MMOL/L (135-145); TOTAL CARBON DIOXIDE 27.2 MMOL/L (24-32); eGFR 15 ML/MIN
--- NOTE | 2020-12-12 13:00 | NUR ---
TF Consult: Pt off cooling measures at this time w/ TF to start today per junior java developer. MAP 81 this AM during rounds. TF recs below given pt needs; will monitor for TF tolerance and adjustment needs as medically indicated. Rec: 1. Continuous TF per MD using Vital High Protein at 85ml/hr goal; to provide 2040ml volume, 2040kcals, 1714ml free water, and 179g protein. 2. additional water flush 200ml Q4 3. monitor for TF tolerance 4. PALB Q /; daily wts 5. routine bowel care 6. upon extubation; advance diet as medically indicated to carb controlled/heart healthy 7. DM ed once appropriate as medically indicated following extubation; deferred at this time. Addendum: 12/12/20 at [address] Amended: Links added. Addendum: 12/12/20 at [address] RN TC: Pt started on CVVH and additional free water to be held at this time. Updated EN recs below. Rec: 1. Continuous TF per MD using Vital High Protein at 85ml/hr goal; to provide 2040ml volume, 2040kcals, 1714ml free water, and 179g protein. 2. additional water flush per junior java developer
[2020-12-12] MEDS ORDERED: calcium chloride inj. 1,000 MG in normal saline 100ml IV soln 100 ML IV PRN (13:10)
[2020-12-12 13:19] LABS: NUCLEATED RED BLOOD CELLS 3 /100WBC (0-0); PLATELET ESTIMATE NORMAL; TOTAL CELLS COUNTED 100
[2020-12-12 13:21] LABS: SPHEROCYTES 1+
[2020-12-12 13:40] LABS: BASOPHILS # (AUTO) 0.1 X10'3 (0-0.2); MEAN CORPUSCULAR HEMOGLOBIN 32.8 PG (27.0-31.0)
[2020-12-12 13:42] LABS: BASOPHILS % (AUTO) 0.3 % (0-1); EOSINOPHILS % (AUTO) 0 % (0-6); HEMATOCRIT 39.8 % (42.0-52.0); HEMOGLOBIN 13.1 g/dl (14.0-17.9); LYMPHOCYTES # (AUTO) 0.4 X10'3 (1.1-4.8); LYMPHOCYTES % (AUTO) 1.8 % (21-51); MEAN CORPUSCULAR HGB CONC 32.9 g/dL (33.0-36.5); MEAN CORPUSCULAR VOLUME 99.6 FL (78-98); NEUTROPHILS # (AUTO) 22.8 X10'3 (1.8-7.7); NEUTROPHILS % (AUTO) 93.9 % (42-75); PLATELET COUNT 215 X10'3 (140-440); RED BLOOD COUNT 3.99 X10'6 (4.70-6.10); RED CELL DISTRIBUTION WIDTH 15.2 % (11.5-14.5); WHITE BLOOD COUNT 24.3 X10'3 (4.5-11.0)
[2020-12-12 13:51] LABS: ALBUMIN 2.5 G/DL (3.4-5.0); ANION GAP 9 (8-16); BLOOD UREA NITROGEN 66 MG/DL (7-18); BUN/CREATININE RATIO 16.5 (5.4-32.0); CHLORIDE 102 MMOL/L (99-107); GLUCOSE 112 MG/DL (70-104); MAGNESIUM 1.9 MG/DL (1.5-2.4); NUCLEATED RED BLOOD CELLS 2 /100WBC (0-0); PHOSPHORUS 4.8 MG/DL (2.3-4.5); PLATELET ESTIMATE NORMAL; POTASSIUM 4.4 MMOL/L (3.5-5.1); SODIUM 136 MMOL/L (135-145); TOTAL CARBON DIOXIDE 25.3 MMOL/L (24-32); TOTAL CELLS COUNTED 100; eGFR 15 ML/MIN
[2020-12-12] MEDS: heparin 25,000 UNIT/250ml bag 250 ML IV SCH (14:08)
[2020-12-12] MEDS: bicarb dialysis sol 2K+/3 Ca2+ 5,000 ML HE SCH ×8 (14:09→23:13)
[2020-12-12 14:22] LABS: EOSINOPHILS % (AUTO) 0 % (0-6); HEMOGLOBIN 12.6 g/dl (14.0-17.9)
[2020-12-12 14:24] LABS: BASOPHILS # (AUTO) 0.1 X10'3 (0-0.2); BASOPHILS % (AUTO) 0.5 % (0-1); HEMATOCRIT 38.5 % (42.0-52.0); LYMPHOCYTES # (AUTO) 0.8 X10'3 (1.1-4.8); LYMPHOCYTES % (AUTO) 3.3 % (21-51); MEAN CORPUSCULAR HEMOGLOBIN 32.6 PG (27.0-31.0); MEAN CORPUSCULAR HGB CONC 32.8 g/dL (33.0-36.5); MEAN CORPUSCULAR VOLUME 99.6 FL (78-98); MEAN PLATELET VOLUME 8.6 FL (7.4-10.4); MONOCYTES # (AUTO) 1.1 X10'3 (0-0.9); MONOCYTES % (AUTO) 4.8 % (2-12); NEUTROPHILS # (AUTO) 21.8 X10'3 (1.8-7.7); NEUTROPHILS % (AUTO) 91.4 % (42-75); PLATELET COUNT 196 X10'3 (140-440); RED BLOOD COUNT 3.87 X10'6 (4.70-6.10); RED CELL DISTRIBUTION WIDTH 15.5 % (11.5-14.5); WHITE BLOOD COUNT 23.8 X10'3 (4.5-11.0)
[2020-12-12 14:33] LABS: ALBUMIN 2.3 G/DL (3.4-5.0); ANION GAP 8 (8-16); BLOOD UREA NITROGEN 63 MG/DL (7-18); BUN/CREATININE RATIO 16.2 (5.4-32.0); CHLORIDE 105 MMOL/L (99-107); CREATININE 3.89 MG/DL (0.60-1.10); GLUCOSE 107 MG/DL (70-104); MAGNESIUM 1.8 MG/DL (1.5-2.4); PHOSPHORUS 4.4 MG/DL (2.3-4.5); POTASSIUM 4.5 MMOL/L (3.5-5.1); SODIUM 138 MMOL/L (135-145); TOTAL CARBON DIOXIDE 25.5 MMOL/L (24-32); eGFR 16 ML/MIN
[2020-12-12] MEDS ORDERED: acetaminophen 325mg/10.15ml oral unit dose solution OGT PRN ×2 (14:44→14:45)
[2020-12-12] MEDS ORDERED: dextrose ORAL solution 15 GM/59 ML bottle OGT PRN ×2 (14:45)
[2020-12-12] MEDS ORDERED: pravastatin 40mg tablet OGT SCH ×2 (14:46→15:17)
[2020-12-12] MEDS ORDERED: linagliptin 5mg tablet OGT SCH (14:46)
[2020-12-12] MEDS: NOREPINEPHRINE BITARTRATE/D5W 250 ML IV SCH ×2 (15:55→20:44)
[2020-12-12] MEDS ORDERED: heparin 10,000 units/1 ML INJ IV PRN (16:00)
[2020-12-12] MEDS ORDERED: heparin 10,000 units/1 ML INJ IV ONE (16:00)
[2020-12-12 16:23] LABS: ABG BASE EXCESS -3.4 mmol/L (-2.0-2.0); ABG HCO3 24.1 mmol/L (22.0-26.0); ABG OXYGEN SATURATION 96.5 % (94-97); ABG PCO2 (T) 52.7 mmHg (35.0-48.0); ABG PO2 (T) 93.7 mmHg (75.0-100.0); FCOHb 0.7 % (0.0-3.9); FMetHb 0.2 % (0.0-1.5); FO2Hb 95.6 % (94-97); PATIENT TEMPERATURE 36.6; PEEP 8 cm H2O; RESPIRATORY RATE 16 b/min; TIDAL VOLUME 545 mL; TOTAL HEMOGLOBIN 14.2 G/dl (14.0-18.0)
[2020-12-12 16:38] LABS: PLATELET COUNT 185 X10'3 (140-440); RED BLOOD COUNT 3.98 X10'6 (4.70-6.10)
[2020-12-12 16:40] LABS: BASOPHILS # (AUTO) 0.2 X10'3 (0-0.2); BASOPHILS % (AUTO) 0.8 % (0-1); EOSINOPHILS % (AUTO) 0.1 % (0-6); HEMATOCRIT 39.4 % (42.0-52.0); HEMOGLOBIN 12.8 g/dl (14.0-17.9); LYMPHOCYTES # (AUTO) 0.9 X10'3 (1.1-4.8); LYMPHOCYTES % (AUTO) 3.6 % (21-51); MEAN CORPUSCULAR HEMOGLOBIN 32.2 PG (27.0-31.0); MEAN CORPUSCULAR HGB CONC 32.5 g/dL (33.0-36.5); MEAN CORPUSCULAR VOLUME 99.2 FL (78-98); MEAN PLATELET VOLUME 8.6 FL (7.4-10.4); MONOCYTES # (AUTO) 1.2 X10'3 (0-0.9); MONOCYTES % (AUTO) 4.8 % (2-12); NEUTROPHILS # (AUTO) 22.6 X10'3 (1.8-7.7); NEUTROPHILS % (AUTO) 90.7 % (42-75); WHITE BLOOD COUNT 24.9 X10'3 (4.5-11.0)
[2020-12-12 16:47] LABS: ALBUMIN 2.5 G/DL (3.4-5.0); ANION GAP 10 (8-16); BLOOD UREA NITROGEN 56 MG/DL (7-18); CHLORIDE 105 MMOL/L (99-107); CREATININE 3.74 MG/DL (0.60-1.10); GLUCOSE 141 MG/DL (70-104); MAGNESIUM 1.8 MG/DL (1.5-2.4); PHOSPHORUS 4.2 MG/DL (2.3-4.5); POTASSIUM 4.7 MMOL/L (3.5-5.1); SODIUM 141 MMOL/L (135-145); eGFR 17 ML/MIN
[2020-12-12] MEDS ORDERED: lactulose 20gm/30ml cup OGT PRN (17:25)
[2020-12-12] MEDS ORDERED: polyethylene glycol 3350 17gm powd pack OGT PRN (17:25)
--- NOTE | 2020-12-12 18:30 | NUR ---
Patient in room ICU 2042. I have received report from Saida GALVAN and Susy GALVAN and had the opportunity to ask questions and assume patient care. CVVH infusing via dialysis catheter in Yasmin torres. Titrating IV medications per MD order. Addendum: 12/12/20 at 1908 by Mercedes Louis RN Amended: Links added.
--- NOTE | 2020-12-12 19:45 | NUR ---
Patient had brief run of SVT that resulted in hypotension. Titrating Levophed per MD order. 100mL NS bolus given via CVVH machine. Turned UF rate back down to 150mL/hr. Will continue to monitor.
[2020-12-12] MEDS: lactobacillus rhamnosus 10,000 MMU CELLS/CAPSULE PO SCH (20:42)
[2020-12-12] MEDS: insulin glargine (Lantus) pen - multi-dose SQ SCH (21:00)
[2020-12-12 22:34] LABS: EOSINOPHILS % (AUTO) 0 % (0-6); HEMOGLOBIN 12.9 g/dl (14.0-17.9); MONOCYTES # (AUTO) 1.2 X10'3 (0-0.9)
[2020-12-12 22:36] LABS: BASOPHILS # (AUTO) 0.1 X10'3 (0-0.2); BASOPHILS % (AUTO) 0.4 % (0-1); HEMATOCRIT 39.3 % (42.0-52.0); LYMPHOCYTES % (AUTO) 3.9 % (21-51); MEAN CORPUSCULAR HEMOGLOBIN 32.7 PG (27.0-31.0); MEAN CORPUSCULAR HGB CONC 32.8 g/dL (33.0-36.5); MEAN CORPUSCULAR VOLUME 99.7 FL (78-98); MEAN PLATELET VOLUME 8.9 FL (7.4-10.4); MONOCYTES % (AUTO) 4.4 % (2-12); NEUTROPHILS # (AUTO) 24.4 X10'3 (1.8-7.7); NEUTROPHILS % (AUTO) 91.3 % (42-75); PLATELET COUNT 175 X10'3 (140-440); RED BLOOD COUNT 3.94 X10'6 (4.70-6.10); RED CELL DISTRIBUTION WIDTH 15.4 % (11.5-14.5)
[2020-12-12 22:56] LABS: ALBUMIN 2.6 G/DL (3.4-5.0); ANION GAP 9 (8-16); BLOOD UREA NITROGEN 52 MG/DL (7-18); BUN/CREATININE RATIO 14.7 (5.4-32.0); CHLORIDE 104 MMOL/L (99-107); CKMB RELATIVE INDEX 4.8 RATIO (0-2.5); CREATINE KINASE 170 U/L (39-308); CREATININE 3.53 MG/DL (0.60-1.10); GLUCOSE 188 MG/DL (70-104); MAGNESIUM 1.7 MG/DL (1.5-2.4); SODIUM 139 MMOL/L (135-145); TOTAL CARBON DIOXIDE 26.2 MMOL/L (24-32); TROPONIN I 0.15 NG/ML (0.0-0.05); eGFR 18 ML/MIN
[2020-12-12 23:09] LABS: WHITE BLOOD COUNT 26.7 X10'3 (4.5-11.0)
[2020-12-13] VITALS (23 sets, daily range): BP systolic 86–153; BP diastolic 49–77
[2020-12-13] MEDS: bicarb dialysis sol 2K+/3 Ca2+ 5,000 ML HE SCH ×18 (00:32→23:20)
--- NOTE | 2020-12-13 01:25 | NUR ---
CVVH running. Catheter positional, triggering machine with patient coughing or movement. Titrating sedation for ventilator synchrony.
[2020-12-13] MEDS: mineral oil/petrolatum ophthal oint EACHEYE SCH ×4 (02:01→20:44)
[2020-12-13] MEDS: ipratropium/albuterol 3ml nebule NEB SCH ×6 (03:16→23:02)
[2020-12-13] MEDS: FENTANYL 1000MCG/NS 100 ML BAG /PF IV PRN ×3 (04:31→21:34)
[2020-12-13] MEDS: midazolam 100mg in NS 100ml 100 ML IV PRN (04:32)
[2020-12-13] MEDS: heparin 25,000 UNIT/250ml bag 250 ML IV SCH ×3 (04:34→23:49)
[2020-12-13] MEDS: insulin regular, human U-100 3ml vial - multi-dose SQ SCH ×4 (04:36→20:48)
[2020-12-13 04:37] LABS: ABG BASE EXCESS -5.6 mmol/L (-2.0-2.0); ABG HCO3 22.3 mmol/L (22.0-26.0); ABG OXYGEN SATURATION 94.5 % (94-97); ABG PCO2 (T) 53.4 mmHg (35.0-48.0); ABG PO2 (T) 80.3 mmHg (75.0-100.0); FCOHb 0.5 % (0.0-3.9); FMetHb 0.3 % (0.0-1.5); FO2Hb 93.7 % (94-97); PATIENT TEMPERATURE 36.8; PEEP 8 cm H2O; RESPIRATORY RATE 16 b/min; TOTAL HEMOGLOBIN 13.7 G/dl (14.0-18.0)
[2020-12-13 04:45] LABS: EOSINOPHILS % (AUTO) 0 % (0-6); HEMOGLOBIN 12.9 g/dl (14.0-17.9); MEAN PLATELET VOLUME 8.9 FL (7.4-10.4); RED BLOOD COUNT 3.95 X10'6 (4.70-6.10)
[2020-12-13 04:47] LABS: BASOPHILS # (AUTO) 0.1 X10'3 (0-0.2); BASOPHILS % (AUTO) 0.5 % (0-1); HEMATOCRIT 40.1 % (42.0-52.0); LYMPHOCYTES # (AUTO) 1.2 X10'3 (1.1-4.8); LYMPHOCYTES % (AUTO) 5.1 % (21-51); MEAN CORPUSCULAR HEMOGLOBIN 32.8 PG (27.0-31.0); MEAN CORPUSCULAR HGB CONC 32.3 g/dL (33.0-36.5); MEAN CORPUSCULAR VOLUME 101.5 FL (78-98); MONOCYTES # (AUTO) 1.3 X10'3 (0-0.9); MONOCYTES % (AUTO) 5.4 % (2-12); NEUTROPHILS # (AUTO) 20.7 X10'3 (1.8-7.7); PLATELET COUNT 163 X10'3 (140-440); RED CELL DISTRIBUTION WIDTH 15.7 % (11.5-14.5); WHITE BLOOD COUNT 23.3 X10'3 (4.5-11.0)
[2020-12-13] MEDS ORDERED: vancomycin/NS 1 GM ADD-VANTAGE 250 ML IV ONE (05:05)
--- NOTE | 2020-12-13 05:05 | NUR ---
Tele ICU MD updated on patient's status. Orders received.
[2020-12-13 05:16] LABS: NUCLEATED RED BLOOD CELLS 13 /100WBC (0-0); PLATELET ESTIMATE NORMAL; TOTAL CELLS COUNTED 100
[2020-12-13 05:28] LABS: ALBUMIN 2.5 G/DL (3.4-5.0); ALBUMIN/GLOBULIN RATIO 0.7 (1.1-1.5); ALKALINE PHOSPHATASE 132 IU/L (46-116); ANION GAP 12 (8-16); BILIRUBIN,DIRECT 0.8 MG/DL (0-0.3); BILIRUBIN,TOTAL 1.3 MG/DL (0.1-1.0); BLOOD UREA NITROGEN 45 MG/DL (7-18); BUN/CREATININE RATIO 14.2 (5.4-32.0); CALCIUM 7.9 MG/DL (8.5-10.1); CHLORIDE 101 MMOL/L (99-107); CREATININE 3.18 MG/DL (0.60-1.10); GLUCOSE 215 MG/DL (70-104); MAGNESIUM 1.7 MG/DL (1.5-2.4); PHOSPHORUS 4.3 MG/DL (2.3-4.5); POTASSIUM 4.9 MMOL/L (3.5-5.1); PREALBUMIN 14.5 MG/DL (19-36); SODIUM 137 MMOL/L (135-145); TOTAL CARBON DIOXIDE 24.5 MMOL/L (24-32); TOTAL PROTEIN 6.2 G/DL (6.4-8.2); eGFR 20 ML/MIN
[2020-12-13 05:52] LABS: ALANINE AMINOTRANSFERASE 3655 U/L (12-78); ASPARTATE AMINO TRANSFERASE 1436 U/L (10-37)
--- NOTE | 2020-12-13 06:14 | NUR ---
Problems reprioritized. Patient report given, questions answered & plan of care reviewed with Saida GALVAN and Susy GALVAN.
[2020-12-13] MEDS: ARIPIPRAZOLE 10 MG TABLET OGT SCH (07:26)
[2020-12-13] MEDS: lactobacillus rhamnosus 10,000 MMU CELLS/CAPSULE PO SCH ×2 (07:26→20:44)
[2020-12-13] MEDS: venlafaxine XR 75mg capsule (Q24H) PO SCH (07:29)
[2020-12-13] MEDS: famotidine/PF 10 mg/ml inj IV SCH (07:30)
[2020-12-13] MEDS: vitamin D (cholecalciferol) 1,000 unit tablet OGT SCH (07:30)
[2020-12-13] MEDS: docusate sodium 100mg/10ml UD cup OGT SCH ×2 (07:30→20:44)
[2020-12-13] MEDS: cefepime 1GM in NS 100mL IVPB IV SCH (07:30)
[2020-12-13] MEDS: K, MAG and/or Phos replacement - Verify level? MC SCH (07:31)
[2020-12-13] MEDS: budesonide 0.5mg/2ml UD nebule IH SCH ×2 (07:33→19:19)
[2020-12-13 09:55] LABS: ABG BASE EXCESS -3.8 mmol/L (-2.0-2.0); ABG HCO3 23.5 mmol/L (22.0-26.0); ABG OXYGEN SATURATION 97.3 % (94-97); ABG PO2 (T) 100.2 mmHg (75.0-100.0); FCOHb 0.2 % (0.0-3.9); FLOW 65 L/min; FMetHb 0.5 % (0.0-1.5); FO2Hb 96.6 % (94-97); PATIENT TEMPERATURE 36.7; PEEP 8 cm H2O; RESPIRATORY RATE 16 b/min; TIDAL VOLUME 550 mL; TOTAL HEMOGLOBIN 13.1 G/dl (14.0-18.0)
[2020-12-13 10:23] LABS: EOSINOPHILS % (AUTO) 0 % (0-6); MEAN CORPUSCULAR HGB CONC 32.6 g/dL (33.0-36.5)
[2020-12-13 10:25] LABS: BASOPHILS # (AUTO) 0.2 X10'3 (0-0.2); BASOPHILS % (AUTO) 1.1 % (0-1); HEMATOCRIT 37.8 % (42.0-52.0); HEMOGLOBIN 12.3 g/dl (14.0-17.9); LYMPHOCYTES # (AUTO) 1.3 X10'3 (1.1-4.8); LYMPHOCYTES % (AUTO) 6.3 % (21-51); MEAN CORPUSCULAR HEMOGLOBIN 32.5 PG (27.0-31.0); MEAN CORPUSCULAR VOLUME 99.6 FL (78-98); MEAN PLATELET VOLUME 8.8 FL (7.4-10.4); MONOCYTES # (AUTO) 0.8 X10'3 (0-0.9); MONOCYTES % (AUTO) 3.8 % (2-12); NEUTROPHILS # (AUTO) 18.2 X10'3 (1.8-7.7); NEUTROPHILS % (AUTO) 88.8 % (42-75); PLATELET COUNT 151 X10'3 (140-440); RED CELL DISTRIBUTION WIDTH 15.9 % (11.5-14.5); WHITE BLOOD COUNT 20.5 X10'3 (4.5-11.0)
[2020-12-13 10:39] LABS: ALBUMIN 2.3 G/DL (3.4-5.0); ANION GAP 9 (8-16); BLOOD UREA NITROGEN 43 MG/DL (7-18); BUN/CREATININE RATIO 14.8 (5.4-32.0); CHLORIDE 100 MMOL/L (99-107); CREATININE 2.91 MG/DL (0.60-1.10); GLUCOSE 277 MG/DL (70-104); MAGNESIUM 1.7 MG/DL (1.5-2.4); PHOSPHORUS 3.9 MG/DL (2.3-4.5); POTASSIUM 4.6 MMOL/L (3.5-5.1); SODIUM 134 MMOL/L (135-145); TOTAL CARBON DIOXIDE 24.7 MMOL/L (24-32); eGFR 22 ML/MIN
[2020-12-13] MEDS: NOREPINEPHRINE BITARTRATE/D5W 250 ML IV SCH (11:08)
[2020-12-13] MEDS ORDERED: bisacodyl 10mg suppository rectal RC STA (11:35)
[2020-12-13] MEDS ORDERED: polyethylene glycol 3350 17gm powd pack PO ONE (11:35)
[2020-12-13] MEDS ORDERED: polyethylene glycol 3350 17gm powd pack PO SCH (12:00)
[2020-12-13] MEDS ORDERED: bisacodyl 10mg suppository rectal RC PRN (12:05)
--- NOTE | 2020-12-13 12:29 | NUR ---
TF turned off per md orders for high residuals and pt having tube feed emesis. Will administer dulcolax and miraz Addendum: 12/13/20 at 1230 by Saida Escobar RN miralax and assess for bowel sounds and restart TF when appropriate
[2020-12-13] MEDS ORDERED: levetiracetam inj 1,000 MG in normal saline 100ml IV soln 90 ML IV SCH (14:42)
[2020-12-13] MEDS ORDERED: levetiracetam-NS 1000mg/100ml 100 ML IV SCH (14:46)
[2020-12-13] MEDS: levetiracetam-NS 1000mg/100ml 100 ML IV SCH ×2 (15:28→23:23)
[2020-12-13 15:30] LABS: ABG BASE EXCESS 1.2 mmol/L (-2.0-2.0); ABG HCO3 24.2 mmol/L (22.0-26.0); ABG PCO2 (T) 32.1 mmHg (35.0-48.0); ABG PO2 (T) 85.4 mmHg (75.0-100.0); FCOHb 0.1 % (0.0-3.9); FLOW 65 L/min; FMetHb 0.1 % (0.0-1.5); FO2Hb 96.8 % (94-97); PATIENT TEMPERATURE 36.5; PEEP 8 cm H2O; RESPIRATORY RATE 24 b/min; TIDAL VOLUME 550 mL; TOTAL HEMOGLOBIN 11.7 G/dl (14.0-18.0)
[2020-12-13 16:00] LABS: ALBUMIN 2.1 G/DL (3.4-5.0); ANION GAP 8 (8-16); BLOOD UREA NITROGEN 42 MG/DL (7-18); BUN/CREATININE RATIO 15.4 (5.4-32.0); CHLORIDE 103 MMOL/L (99-107); CREATININE 2.72 MG/DL (0.60-1.10); GLUCOSE 260 MG/DL (70-104); MAGNESIUM 1.7 MG/DL (1.5-2.4); PHOSPHORUS 2.3 MG/DL (2.3-4.5); POTASSIUM 3.7 MMOL/L (3.5-5.1); SODIUM 136 MMOL/L (135-145); eGFR 24 ML/MIN
[2020-12-13 16:01] LABS: BASOPHILS # (AUTO) 0.1 X10'3 (0-0.2); HEMOGLOBIN 11.2 g/dl (14.0-17.9); LYMPHOCYTES # (AUTO) 1.1 X10'3 (1.1-4.8); MONOCYTES # (AUTO) 0.5 X10'3 (0-0.9)
[2020-12-13 16:03] LABS: BASOPHILS % (AUTO) 0.8 % (0-1); EOSINOPHILS % (AUTO) 0.1 % (0-6); HEMATOCRIT 33.9 % (42.0-52.0); LYMPHOCYTES % (AUTO) 7.7 % (21-51); MEAN CORPUSCULAR HEMOGLOBIN 32.6 PG (27.0-31.0); MEAN CORPUSCULAR VOLUME 98.7 FL (78-98); MONOCYTES % (AUTO) 3.2 % (2-12); NEUTROPHILS # (AUTO) 12.6 X10'3 (1.8-7.7); NEUTROPHILS % (AUTO) 88.2 % (42-75); PLATELET COUNT 110 X10'3 (140-440); RED BLOOD COUNT 3.43 X10'6 (4.70-6.10); RED CELL DISTRIBUTION WIDTH 15.1 % (11.5-14.5); WHITE BLOOD COUNT 14.3 X10'3 (4.5-11.0)
[2020-12-13] MEDS: polyethylene glycol 3350 17gm powd pack OGT SCH ×3 (17:09→23:23)
--- NOTE | 2020-12-13 18:57 | NUR ---
1830:Patient in room ICU 2042. I have received report from Saida GALVAN and Susy RN and had the opportunity to ask questions and assume patient care. 1850:Remain at 25ml/hr off via CVVH per Dr. Miranda.
[2020-12-13 19:50] LABS: ABG BASE EXCESS 1.7 mmol/L (-2.0-2.0); ABG HCO3 26.3 mmol/L (22.0-26.0); ABG OXYGEN SATURATION 96.1 % (94-97); ABG PO2 (T) 86.5 mmHg (75.0-100.0); FCOHb 0.3 % (0.0-3.9); FMetHb 0.3 % (0.0-1.5); FO2Hb 95.5 % (94-97); PATIENT TEMPERATURE 36.7; PEEP 8 cm H2O; RESPIRATORY RATE 20 b/min; TIDAL VOLUME 450 mL; TOTAL HEMOGLOBIN 11.5 G/dl (14.0-18.0)
--- NOTE | 2020-12-13 19:58 | NUR ---
1908 -1956 Patient peak pressuring on ventilator into the 50s at times. RT notified. Tidal volumes reduced to from 550 to 450, tolerating better peak pressuring decreased. ABG and chest xray obtained. Dr. Coppola notified, ordered received. CVVH running, not on any pressors. Will continue to monitor
[2020-12-13] MEDS: insulin glargine (Lantus) pen - multi-dose SQ SCH (20:49)
--- NOTE | 2020-12-13 22:00 | NUR ---
Levophed restarted for hypotension. CVVH positional, machine stops with patient coughing but able to restart without incident. Care with turns, reverse Trendelenburg.
[2020-12-13 22:50] LABS: EOSINOPHILS # (AUTO) 0.1 X10'3 (0-0.9); HEMATOCRIT 33.6 % (42.0-52.0); HEMOGLOBIN 11.1 g/dl (14.0-17.9); LYMPHOCYTES # (AUTO) 0.9 X10'3 (1.1-4.8); LYMPHOCYTES % (AUTO) 5.5 % (21-51); MONOCYTES # (AUTO) 0.7 X10'3 (0-0.9)
[2020-12-13 22:51] LABS: BASOPHILS # (AUTO) 0.2 X10'3 (0-0.2); BASOPHILS % (AUTO) 1.3 % (0-1); EOSINOPHILS % (AUTO) 0.5 % (0-6); MEAN CORPUSCULAR HEMOGLOBIN 32.7 PG (27.0-31.0); MEAN CORPUSCULAR HGB CONC 33.2 g/dL (33.0-36.5); MEAN CORPUSCULAR VOLUME 98.5 FL (78-98); MEAN PLATELET VOLUME 9.1 FL (7.4-10.4); MONOCYTES % (AUTO) 4.3 % (2-12); NEUTROPHILS # (AUTO) 14.9 X10'3 (1.8-7.7); NEUTROPHILS % (AUTO) 88.4 % (42-75); PLATELET COUNT 119 X10'3 (140-440); RED BLOOD COUNT 3.41 X10'6 (4.70-6.10); RED CELL DISTRIBUTION WIDTH 15.4 % (11.5-14.5); WHITE BLOOD COUNT 16.9 X10'3 (4.5-11.0)
[2020-12-13 23:21] LABS: ALBUMIN 2.1 G/DL (3.4-5.0); ANION GAP 6 (8-16); BLOOD UREA NITROGEN 37 MG/DL (7-18); BUN/CREATININE RATIO 14.3 (5.4-32.0); CALCIUM 8.3 MG/DL (8.5-10.1); CHLORIDE 102 MMOL/L (99-107); CREATININE 2.58 MG/DL (0.60-1.10); GLUCOSE 194 MG/DL (70-104); MAGNESIUM 1.9 MG/DL (1.5-2.4); PHOSPHORUS 3.2 MG/DL (2.3-4.5); POTASSIUM 3.7 MMOL/L (3.5-5.1); SODIUM 137 MMOL/L (135-145); TOTAL CARBON DIOXIDE 28.8 MMOL/L (24-32); eGFR 26 ML/MIN
[2020-12-14] VITALS (24 sets, daily range): BP systolic 95–158; BP diastolic 49–85
[2020-12-14] MEDS: bicarb dialysis sol 2K+/3 Ca2+ 5,000 ML HE SCH ×13 (00:14→23:56)
[2020-12-14] MEDS: mineral oil/petrolatum ophthal oint EACHEYE SCH ×4 (02:09→20:15)
[2020-12-14] MEDS: ipratropium/albuterol 3ml nebule NEB SCH ×6 (02:43→23:07)
[2020-12-14] MEDS: insulin regular, human U-100 3ml vial - multi-dose SQ SCH (02:54)
[2020-12-14 02:55] LABS: ABG BASE EXCESS 2.9 mmol/L (-2.0-2.0); ABG HCO3 28.9 mmol/L (22.0-26.0); ABG OXYGEN SATURATION 95.5 % (94-97); ABG PCO2 (T) 49.6 mmHg (35.0-48.0); ABG PO2 (T) 82.9 mmHg (75.0-100.0); FCOHb 0.3 % (0.0-3.9); FMetHb 0.3 % (0.0-1.5); FO2Hb 94.9 % (94-97); PATIENT TEMPERATURE 36.5; PEEP 8 cm H2O; RESPIRATORY RATE 20 b/min; TIDAL VOLUME 450 mL; TOTAL HEMOGLOBIN 11.7 G/dl (14.0-18.0)
[2020-12-14 04:20] LABS: BASOPHILS # (AUTO) 0.1 X10'3 (0-0.2); BASOPHILS % (AUTO) 0.5 % (0-1); EOSINOPHILS # (AUTO) 0.1 X10'3 (0-0.9); EOSINOPHILS % (AUTO) 0.5 % (0-6); HEMATOCRIT 32.8 % (42.0-52.0); HEMOGLOBIN 10.9 g/dl (14.0-17.9); LYMPHOCYTES % (AUTO) 6.2 % (21-51); MEAN CORPUSCULAR HGB CONC 33.3 g/dL (33.0-36.5); MEAN CORPUSCULAR VOLUME 99.2 FL (78-98); MEAN PLATELET VOLUME 8.6 FL (7.4-10.4); MONOCYTES # (AUTO) 0.7 X10'3 (0-0.9); MONOCYTES % (AUTO) 4.5 % (2-12); NEUTROPHILS % (AUTO) 88.3 % (42-75); PLATELET COUNT 103 X10'3 (140-440); RED BLOOD COUNT 3.31 X10'6 (4.70-6.10); RED CELL DISTRIBUTION WIDTH 15.7 % (11.5-14.5); WHITE BLOOD COUNT 15.9 X10'3 (4.5-11.0)
[2020-12-14] MEDS: NOREPINEPHRINE BITARTRATE/D5W 250 ML IV SCH ×2 (04:37→16:51)
[2020-12-14 04:45] LABS: ALBUMIN 1.9 G/DL (3.4-5.0); ALBUMIN/GLOBULIN RATIO 0.6 (1.1-1.5); ALKALINE PHOSPHATASE 99 IU/L (46-116); ANION GAP 5 (8-16); ASPARTATE AMINO TRANSFERASE 483 U/L (10-37); BILIRUBIN,DIRECT 0.7 MG/DL (0-0.3); BILIRUBIN,TOTAL 1.3 MG/DL (0.1-1.0); BLOOD UREA NITROGEN 35 MG/DL (7-18); BUN/CREATININE RATIO 14.5 (5.4-32.0); CALCIUM 8.4 MG/DL (8.5-10.1); CHLORIDE 103 MMOL/L (99-107); CREATININE 2.41 MG/DL (0.60-1.10); GLUCOSE 162 MG/DL (70-104); PHOSPHORUS 3.1 MG/DL (2.3-4.5); POTASSIUM 3.5 MMOL/L (3.5-5.1); SODIUM 136 MMOL/L (135-145); TOTAL CARBON DIOXIDE 27.8 MMOL/L (24-32); TOTAL PROTEIN 5.1 G/DL (6.4-8.2); eGFR 28 ML/MIN
[2020-12-14 04:48] LABS: ALANINE AMINOTRANSFERASE 2189 U/L (12-78)
[2020-12-14] MEDS: VANCOMYCIN 750MG IV in NS 250 ML IV SCH (04:55)
--- NOTE | 2020-12-14 04:57 | NUR ---
Update given to Tele ICU MD. No new orders at this time.
[2020-12-14 06:12] LABS: ANISOCYTOSIS 1+; NUCLEATED RED BLOOD CELLS 1 /100WBC (0-0); PLATELET ESTIMATE DECREASED; TOTAL CELLS COUNTED 100; TOXIC VACUOLATION 1+
[2020-12-14 06:13] LABS: HYPOCHROMASIA 1+; POLYCHROMASIA FEW
--- NOTE | 2020-12-14 06:28 | NUR ---
Problems reprioritized. Patient report given, questions answered & plan of care reviewed with Jefe GALVAN.
[2020-12-14] MEDS: levetiracetam-NS 1000mg/100ml 100 ML IV SCH ×2 (07:18→20:14)
[2020-12-14] MEDS: ARIPIPRAZOLE 10 MG TABLET OGT SCH (07:19)
[2020-12-14] MEDS: budesonide 0.5mg/2ml UD nebule IH SCH ×2 (07:19→19:13)
[2020-12-14] MEDS: lactobacillus rhamnosus 10,000 MMU CELLS/CAPSULE PO SCH ×2 (07:19→20:14)
[2020-12-14] MEDS: famotidine/PF 10 mg/ml inj IV SCH (07:19)
[2020-12-14] MEDS: cefepime 1GM in NS 100mL IVPB IV SCH (07:19)
[2020-12-14] MEDS: vitamin D (cholecalciferol) 1,000 unit tablet OGT SCH (07:20)
[2020-12-14] MEDS: docusate sodium 100mg/10ml UD cup OGT SCH ×2 (07:20→20:14)
[2020-12-14] MEDS: venlafaxine XR 75mg capsule (Q24H) PO SCH (07:24)
[2020-12-14] MEDS: K, MAG and/or Phos replacement - Verify level? MC SCH (08:00)
[2020-12-14 10:23] LABS: NEUTROPHILS # (AUTO) 13.7 X10'3 (1.8-7.7)
[2020-12-14 10:25] LABS: BASOPHILS # (AUTO) 0.2 X10'3 (0-0.2); EOSINOPHILS # (AUTO) 0.1 X10'3 (0-0.9); EOSINOPHILS % (AUTO) 0.9 % (0-6); HEMATOCRIT 31.9 % (42.0-52.0); HEMOGLOBIN 10.5 g/dl (14.0-17.9); LYMPHOCYTES # (AUTO) 1.1 X10'3 (1.1-4.8); LYMPHOCYTES % (AUTO) 7.1 % (21-51); MEAN CORPUSCULAR HEMOGLOBIN 32.5 PG (27.0-31.0); MEAN CORPUSCULAR VOLUME 98.5 FL (78-98); MEAN PLATELET VOLUME 8.6 FL (7.4-10.4); MONOCYTES # (AUTO) 0.7 X10'3 (0-0.9); MONOCYTES % (AUTO) 4.7 % (2-12); NEUTROPHILS % (AUTO) 86.3 % (42-75); PLATELET COUNT 101 X10'3 (140-440); RED BLOOD COUNT 3.24 X10'6 (4.70-6.10); RED CELL DISTRIBUTION WIDTH 15.7 % (11.5-14.5); WHITE BLOOD COUNT 15.9 X10'3 (4.5-11.0)
[2020-12-14 10:30] LABS: ALBUMIN 1.9 G/DL (3.4-5.0); ANION GAP 6 (8-16); BLOOD UREA NITROGEN 31 MG/DL (7-18); CHLORIDE 103 MMOL/L (99-107); CREATININE 2.38 MG/DL (0.60-1.10); GLUCOSE 130 MG/DL (70-104); MAGNESIUM 1.9 MG/DL (1.5-2.4); PHOSPHORUS 2.8 MG/DL (2.3-4.5); POTASSIUM 3.4 MMOL/L (3.5-5.1); SODIUM 137 MMOL/L (135-145); TOTAL CARBON DIOXIDE 28.3 MMOL/L (24-32); eGFR 28 ML/MIN
--- NOTE | 2020-12-14 10:30 | NUR ---
MD aware patient is not responding to deep pain, right pupil is larger than the left pupil, bowel sounds absent, and per NOC shift small gelatinous stool. MD updated on lines and labs. New orders received.
[2020-12-14] MEDS ORDERED: insulin Lispro (HumaLOG) vial - multi-dose SQ SCH (10:35)
--- NOTE | 2020-12-14 11:50 | NUR ---
Reassessment: [facility] at [facility] to being held 12/13 d/t high residuals and pt having tube feed emesis per RN notes, though per EMR GRV range 5-250 mL which is WNL and no documentation of emesis. Per RN at critical care rounds pt with small gelatinous BM last night. Pt to get KUB per MD at critical care rounds. Pt receiving routine Colace and received Miralax and Dulcolax suppository 12/13. Additional PRN bowel care available. Recommend resuming TF as medically indicated at 20 mL/hr and working towards goal rate by advancing by 20 mL Q8H as tolerated. Will continue to follow closely and make recommendations as appropriate. Rec: 1. Continuous TF per MD using Vital High Protein at 85ml/hr goal; Begin at 20 mL/hr and advance by 20 mL Q8H as tolerated to goal rate. Once at goal to provide 2040 mL total volume/day, 2040 kcal, 1714 mL water, and 179 g protein 2. Additional water flush per supervisor post wave given CVVH 3. PALB q /; daily wts 5. Routine bowel care 6. Upon extubation; advance diet as medically indicated to carb controlled/heart healthy 7. DM ed once appropriate as medically indicated following extubation; A1c 9.2% Addendum: 12/14/20 at [address] Amended: Links added.
[2020-12-14 13:34] LABS: ABG BASE EXCESS 1.5 mmol/L (-2.0-2.0); ABG HCO3 26.1 mmol/L (22.0-26.0); ABG OXYGEN SATURATION 94.9 % (94-97); ABG PCO2 (T) 39.9 mmHg (35.0-48.0); ABG PO2 (T) 74.3 mmHg (75.0-100.0); FCOHb 0.3 % (0.0-3.9); FLOW 40 L/min; FMetHb 0.2 % (0.0-1.5); FO2Hb 94.4 % (94-97); PATIENT TEMPERATURE 36.4; PEEP 8 cm H2O; RESPIRATORY RATE 20 b/min; TIDAL VOLUME 500 mL; TOTAL HEMOGLOBIN 11.3 G/dl (14.0-18.0)
--- NOTE | 2020-12-14 14:45 | NUR ---
consulted with charger operator, normothermic patient removed from [facility] and pads removed upon returning from CT.
[2020-12-14 16:48] LABS: BASOPHILS # (AUTO) 0.1 X10'3 (0-0.2); BASOPHILS % (AUTO) 0.4 % (0-1); EOSINOPHILS # (AUTO) 0.2 X10'3 (0-0.9); EOSINOPHILS % (AUTO) 1.3 % (0-6); HEMOGLOBIN 10.5 g/dl (14.0-17.9); LYMPHOCYTES # (AUTO) 0.9 X10'3 (1.1-4.8); LYMPHOCYTES % (AUTO) 5.8 % (21-51); MEAN CORPUSCULAR HEMOGLOBIN 32.9 PG (27.0-31.0); MEAN CORPUSCULAR VOLUME 99.7 FL (78-98); MEAN PLATELET VOLUME 8.2 FL (7.4-10.4); MONOCYTES # (AUTO) 0.9 X10'3 (0-0.9); MONOCYTES % (AUTO) 5.5 % (2-12); NEUTROPHILS # (AUTO) 13.7 X10'3 (1.8-7.7); PLATELET COUNT 99 X10'3 (140-440); RED BLOOD COUNT 3.21 X10'6 (4.70-6.10); RED CELL DISTRIBUTION WIDTH 15.8 % (11.5-14.5); WHITE BLOOD COUNT 15.8 X10'3 (4.5-11.0)
--- NOTE | 2020-12-14 16:58 | NUR ---
CVVH stopped at 1445 for cartridge change and for patient to go to CT. upon returning to patient's room, pt bed change was performed and patient was not getting their volumes and had a bloody nose. MD notified. Rhino rocket placed at 1610 and CVVH restarted. Orders received for 24hr EEG.
[2020-12-14 17:01] LABS: ALBUMIN 1.9 G/DL (3.4-5.0); ANION GAP 5 (8-16); BLOOD UREA NITROGEN 32 MG/DL (7-18); BUN/CREATININE RATIO 13.2 (5.4-32.0); CHLORIDE 103 MMOL/L (99-107); CREATININE 2.42 MG/DL (0.60-1.10); GLUCOSE 137 MG/DL (70-104); MAGNESIUM 1.9 MG/DL (1.5-2.4); PHOSPHORUS 3.3 MG/DL (2.3-4.5); POTASSIUM 3.6 MMOL/L (3.5-5.1); SODIUM 136 MMOL/L (135-145); TOTAL CARBON DIOXIDE 28.4 MMOL/L (24-32); eGFR 28 ML/MIN
[2020-12-14] MEDS: FENTANYL 1000MCG/NS 100 ML BAG /PF IV PRN (17:40)
[2020-12-14] MEDS: heparin 25,000 UNIT/250ml bag 250 ML IV SCH (18:30)
--- NOTE | 2020-12-14 18:30 | NUR ---
Patient in room ICU 2042. I have received report from MANDY Linton and had the opportunity to ask questions and assume patient care.
--- NOTE | 2020-12-14 18:33 | NUR ---
Patient report given, questions answered & plan of care reviewed with Anna Marie GALVAN.
--- NOTE | 2020-12-14 18:40 | NUR ---
collision technician here to set up for 24 hour EEG.
[2020-12-14] MEDS ORDERED: magnesium 4gm in 100ml NS 100 ML IV PRN (20:15)
[2020-12-14] MEDS: insulin glargine (Lantus) pen - multi-dose SQ SCH (21:46)
[2020-12-14 22:03] LABS: BASOPHILS # (AUTO) 0.1 X10'3 (0-0.2); BASOPHILS % (AUTO) 0.8 % (0-1); EOSINOPHILS # (AUTO) 0.2 X10'3 (0-0.9); EOSINOPHILS % (AUTO) 1.4 % (0-6); HEMATOCRIT 33.3 % (42.0-52.0); MEAN CORPUSCULAR HEMOGLOBIN 32.5 PG (27.0-31.0); MEAN CORPUSCULAR HGB CONC 32.9 g/dL (33.0-36.5); MEAN CORPUSCULAR VOLUME 98.9 FL (78-98); MEAN PLATELET VOLUME 8.6 FL (7.4-10.4); MONOCYTES # (AUTO) 0.9 X10'3 (0-0.9); MONOCYTES % (AUTO) 5.7 % (2-12); NEUTROPHILS # (AUTO) 13.9 X10'3 (1.8-7.7); NEUTROPHILS % (AUTO) 86.1 % (42-75); PLATELET COUNT 108 X10'3 (140-440); RED BLOOD COUNT 3.37 X10'6 (4.70-6.10); RED CELL DISTRIBUTION WIDTH 15.6 % (11.5-14.5); WHITE BLOOD COUNT 16.1 X10'3 (4.5-11.0)
[2020-12-14 22:17] LABS: ALBUMIN 2.1 G/DL (3.4-5.0); ANION GAP 7 (8-16); BLOOD UREA NITROGEN 28 MG/DL (7-18); BUN/CREATININE RATIO 12.2 (5.4-32.0); CHLORIDE 104 MMOL/L (99-107); GLUCOSE 139 MG/DL (70-104); MAGNESIUM 1.9 MG/DL (1.5-2.4); POTASSIUM 3.6 MMOL/L (3.5-5.1); SODIUM 139 MMOL/L (135-145); TOTAL CARBON DIOXIDE 28.2 MMOL/L (24-32); eGFR 29 ML/MIN
[2020-12-14] MEDS: potassium Cl 40MEQ/250ML bag 250 ML IV PRN (22:33)
--- NOTE | 2020-12-14 23:30 | NUR ---
Patient with high peak pressure to 43 intermittently throughout shift with any patient care activities. With peak pressure of 43, Tidal volumes decreased to 450's. ET tube suctioned with each episode, with small to moderate amount of creamy white mucous suctioned. CVVH catheter is positional. Fentanyl bolus and rate increased to decrease the peak pressure episodes and decrease the alarms from the CVVH machine. CVVH alarming arterial access pressure low, therapy re starts without incident. RT at bedside, ventilator mode changed to A/C PRVC with improved ventilator synchrony.
[2020-12-15] VITALS (25 sets, daily range): BP systolic 128–153; BP diastolic 62–99
[2020-12-15] MEDS: bicarb dialysis sol 2K+/3 Ca2+ 5,000 ML HE SCH ×7 (01:15→06:31)
[2020-12-15] MEDS: FENTANYL 1000MCG/NS 100 ML BAG /PF IV PRN ×2 (02:03→17:46)
[2020-12-15] MEDS: mineral oil/petrolatum ophthal oint EACHEYE SCH ×4 (02:04→20:23)
[2020-12-15 03:03] LABS: ABG HCO3 27.4 mmol/L (22.0-26.0); ABG OXYGEN SATURATION 95.6 % (94-97); ABG PCO2 (T) 40.5 mmHg (35.0-48.0); ABG PO2 (T) 76.5 mmHg (75.0-100.0); FMetHb 0.2 % (0.0-1.5); FO2Hb 95.4 % (94-97); PATIENT TEMPERATURE 36.6; PEEP 8 cm H2O; RESPIRATORY RATE 20 b/min; TIDAL VOLUME 500 mL; TOTAL HEMOGLOBIN 11.4 G/dl (14.0-18.0)
[2020-12-15] MEDS: ipratropium/albuterol 3ml nebule NEB SCH ×6 (03:19→23:12)
--- NOTE | 2020-12-15 04:05 | NUR ---
CVVH alarm: air in venous system. Help menu instructions followed without success. server assistant at bedside assisting with trouble shoot. Blood unable to be returned. CVVH disconnected from patient and ports flushed with normal saline. On-call aircraft instrument repairer called, message left.
[2020-12-15] MEDS: NOREPINEPHRINE BITARTRATE/D5W 250 ML IV SCH ×2 (05:05→17:19)
[2020-12-15] MEDS: VANCOMYCIN 750MG IV in NS 250 ML IV SCH (05:08)
[2020-12-15 05:15] LABS: BASOPHILS # (AUTO) 0.1 X10'3 (0-0.2); BASOPHILS % (AUTO) 0.4 % (0-1); EOSINOPHILS # (AUTO) 0.3 X10'3 (0-0.9); HEMOGLOBIN 10.3 g/dl (14.0-17.9); LYMPHOCYTES # (AUTO) 0.9 X10'3 (1.1-4.8); MEAN CORPUSCULAR HEMOGLOBIN 32.9 PG (27.0-31.0); MEAN CORPUSCULAR HGB CONC 33.2 g/dL (33.0-36.5); MEAN CORPUSCULAR VOLUME 98.9 FL (78-98); MEAN PLATELET VOLUME 8.2 FL (7.4-10.4); MONOCYTES # (AUTO) 1.1 X10'3 (0-0.9); MONOCYTES % (AUTO) 7.1 % (2-12); NEUTROPHILS # (AUTO) 13.2 X10'3 (1.8-7.7); NEUTROPHILS % (AUTO) 84.5 % (42-75); PLATELET COUNT 107 X10'3 (140-440); RED BLOOD COUNT 3.14 X10'6 (4.70-6.10); RED CELL DISTRIBUTION WIDTH 15.3 % (11.5-14.5); WHITE BLOOD COUNT 15.6 X10'3 (4.5-11.0)
[2020-12-15 05:25] LABS: ALBUMIN 1.9 G/DL (3.4-5.0); ANION GAP 7 (8-16); BLOOD UREA NITROGEN 29 MG/DL (7-18); BUN/CREATININE RATIO 12.7 (5.4-32.0); CHLORIDE 103 MMOL/L (99-107); CREATININE 2.28 MG/DL (0.60-1.10); GLUCOSE 129 MG/DL (70-104); PHOSPHORUS 2.7 MG/DL (2.3-4.5); POTASSIUM 3.7 MMOL/L (3.5-5.1); SODIUM 136 MMOL/L (135-145); TOTAL CARBON DIOXIDE 26.2 MMOL/L (24-32); eGFR 30 ML/MIN
--- NOTE | 2020-12-15 06:18 | NUR ---
Problems reprioritized. Patient report given, questions answered & plan of care reviewed with MANDY Linton.
--- NOTE | 2020-12-15 06:30 | NUR ---
Patient in room ICU 2042. I have received report from Anna Marie GALVAN and had the opportunity to ask questions and assume patient care.
[2020-12-15] MEDS ORDERED: bicarb dialysis sol 2K+/3 Ca2+ 5,000 ML HE SCH (06:35)
[2020-12-15 07:04] LABS: ANISOCYTOSIS 1+; PLATELET ESTIMATE DECREASED; TOTAL CELLS COUNTED 100
[2020-12-15] MEDS: levetiracetam-NS 1000mg/100ml 100 ML IV SCH ×2 (07:19→20:23)
[2020-12-15] MEDS: cefepime 1GM in NS 100mL IVPB IV SCH (07:19)
[2020-12-15] MEDS: famotidine/PF 10 mg/ml inj IV SCH (07:20)
[2020-12-15] MEDS: vitamin D (cholecalciferol) 1,000 unit tablet OGT SCH (07:20)
[2020-12-15] MEDS: venlafaxine XR 75mg capsule (Q24H) PO SCH (07:20)
[2020-12-15] MEDS: lactobacillus rhamnosus 10,000 MMU CELLS/CAPSULE PO SCH ×2 (07:20→20:23)
[2020-12-15] MEDS: ARIPIPRAZOLE 10 MG TABLET OGT SCH (07:20)
[2020-12-15] MEDS: docusate sodium 100mg/10ml UD cup OGT SCH ×2 (07:20→20:23)
[2020-12-15] MEDS: budesonide 0.5mg/2ml UD nebule IH SCH ×2 (07:28→19:10)
[2020-12-15] MEDS: K, MAG and/or Phos replacement - Verify level? MC SCH (07:53)
--- NOTE | 2020-12-15 08:42 | NUR ---
Dr. Barry at bedside. Notified switched the duosol from 2K to 4K per written orders due to K of 3.7. switched net UF rate to 50 mL/ hour.
[2020-12-15 10:09] LABS: BASOPHILS # (AUTO) 0.1 X10'3 (0-0.2); BASOPHILS % (AUTO) 0.7 % (0-1); EOSINOPHILS # (AUTO) 0.4 X10'3 (0-0.9); EOSINOPHILS % (AUTO) 2.3 % (0-6); HEMATOCRIT 30.7 % (42.0-52.0); HEMOGLOBIN 10.2 g/dl (14.0-17.9); LYMPHOCYTES # (AUTO) 0.9 X10'3 (1.1-4.8); LYMPHOCYTES % (AUTO) 5.8 % (21-51); MEAN CORPUSCULAR HEMOGLOBIN 32.6 PG (27.0-31.0); MEAN CORPUSCULAR HGB CONC 33.1 g/dL (33.0-36.5); MEAN CORPUSCULAR VOLUME 98.3 FL (78-98); MEAN PLATELET VOLUME 8.2 FL (7.4-10.4); MONOCYTES # (AUTO) 1.3 X10'3 (0-0.9); MONOCYTES % (AUTO) 7.8 % (2-12); NEUTROPHILS # (AUTO) 13.5 X10'3 (1.8-7.7); NEUTROPHILS % (AUTO) 83.4 % (42-75); PLATELET COUNT 103 X10'3 (140-440); RED BLOOD COUNT 3.12 X10'6 (4.70-6.10); RED CELL DISTRIBUTION WIDTH 15.3 % (11.5-14.5); WHITE BLOOD COUNT 16.2 X10'3 (4.5-11.0)
[2020-12-15] MEDS: Duosol 4K/3 Ca (w/calcium) 5,000 ML HE SCH ×6 (10:26→19:35)
[2020-12-15 10:37] LABS: ALBUMIN 1.9 G/DL (3.4-5.0); ALBUMIN/GLOBULIN RATIO 0.6 (1.1-1.5); ALKALINE PHOSPHATASE 88 IU/L (46-116); ANION GAP 7 (8-16); ASPARTATE AMINO TRANSFERASE 212 U/L (10-37); BILIRUBIN,DIRECT 1.1 MG/DL (0-0.3); BILIRUBIN,TOTAL 1.6 MG/DL (0.1-1.0); BLOOD UREA NITROGEN 28 MG/DL (7-18); BUN/CREATININE RATIO 12.2 (5.4-32.0); CHLORIDE 104 MMOL/L (99-107); GLUCOSE 124 MG/DL (70-104); MAGNESIUM 1.9 MG/DL (1.5-2.4); PHOSPHORUS 2.8 MG/DL (2.3-4.5); POTASSIUM 3.7 MMOL/L (3.5-5.1); SODIUM 138 MMOL/L (135-145); TOTAL CARBON DIOXIDE 26.7 MMOL/L (24-32); TOTAL PROTEIN 5.2 G/DL (6.4-8.2); eGFR 29 ML/MIN
[2020-12-15 10:38] LABS: ALANINE AMINOTRANSFERASE 1271 U/L (12-78)
--- NOTE | 2020-12-15 11:28 | NUR ---
Daughter at bedside asking for eeg technologist and RN to give diagnosis and prognosis. Spoke with patient and told her that MD will be there to go over this with her during rounds. Daughter looked as if she was taking photos of patient 24Hr EEG. I told daughter that she is not allowed to be taking photos inside the ICU. green building energy engineer aware.
[2020-12-15] MEDS: potassium Cl 40MEQ/250ML bag 250 ML IV PRN (13:40)
--- NOTE | 2020-12-15 14:47 | NUR ---
TPN consult: D/w RN who reports pt has not received nutrition since 12/13 d/t elevated gastric residuals and still has not had a BM. Noted that patient's highest residual while on TF was 250 mL which is WNL. Pt with a central line per RN and to start TPN per MD. Recommendations below have been d/w clinical pharmacist and will NOT meet patient's estimated protein needs while on the vent and receiving CVVH d/t high dextrose formula. Recommend resuming TF as medically indicated. Pt receiving routine and PRN bowel care. Will continue to follow closely. Rec: 1) Continuous TPN via central line using 02/14 Clinimix non-E 1L bag with 50 mL 20% intralipids. To begin at 30 mL/hr and advance to goal after 12 hours if pt tolerating. Once at goal to provide: 2160 mL total volume/day, 410 g dextrose (2.43 mg/kg/min), 101.5 g AA (61% EPN), 20.5 g lipids, and 2005 kcal 2) Monitor renal labs and adjust recommendations as appropriate. Electrolytes currently WNL 3) Prealbumin and TG q Thursday/ 4) Daily weights 5) Resume TF once medically indicated: Continuous Vital High Protein with 85 mL/hr goal; Begin at 20 mL/hr and advance by 20 mL Q8H as tolerated to goal rate. Once at goal to provide 2040 mL total volume/day, 2040 kcal, 1714 mL water, and 179 g protein 6) Once TF, additional water flush per accounts payable bookkeeper given CVVH 7) Routine bowel care 8) Upon extubation; advance diet as medically indicated to carb controlled/heart healthy 9) DM ed once appropriate as medically indicated following extubation; A1c 9.2% Addendum: 12/15/20 at [address] Amended: Margarita added. Addendum: 12/15/20 at [address] TPN goal rate is 90 mL/hr
[2020-12-15] MEDS ORDERED: magnesium 4gm in 100ml NS 100 ML IV PRN (14:55)
[2020-12-15] MEDS ORDERED: magnesium 2GM in 50ml NS 50 ML IV PRN (14:55)
[2020-12-15] MEDS ORDERED: Dextrose 10%-water IV solution 1,000 ML IV PRN (14:55)
[2020-12-15] MEDS ORDERED: magnesium Cl slow-release 64mg tablet PO PRN (14:55)
--- NOTE | 2020-12-15 15:00 | NUR ---
TPN consult: D/w RN who reports pt has not received nutrition since 12/13 d/t elevated gastric residuals and still has not had a BM. Noted that patient's highest residual while on TF was 250 mL which is WNL. Pt with a central line per RN and to start TPN per MD. Recommendations below have been d/w clinical pharmacist and will NOT meet patient's estimated protein needs while on the vent and receiving CVVH d/t high dextrose formula. Recommend resuming TF as medically indicated. Pt receiving routine and PRN bowel care. Will continue to follow closely. Rec: 1) Continuous TPN via central line using 02/14 Clinimix non-E 1L bag with 50 mL 20% intralipids at 90 mL/hr. To begin at 30 mL/hr and advance to goal after 12 hours if pt tolerating. Once at goal to provide: 2160 mL total volume/day, 410 g dextrose (2.43 mg/kg/min), 101.5 g AA (61% EPN), 20.5 g lipids, and 2005 kcal 2) Monitor renal labs and adjust recommendations as appropriate. Electrolytes currently WNL 3) Prealbumin and TG q Thursday/ 4) Daily weights 5) Resume TF once medically indicated: Continuous Vital High Protein with 85 mL/hr goal; Begin at 20 mL/hr and advance by 20 mL Q8H as tolerated to goal rate. Once at goal to provide 2040 mL total volume/day, 2040 kcal, 1714 mL water, and 179 g protein 6) Once TF, additional water flush per baking powder mixer given CVVH 7) Routine bowel care 8) Upon extubation; advance diet as medically indicated to carb controlled/heart healthy 9) DM ed once appropriate as medically indicated following extubation; A1c 9.2% Addendum: 12/15/20 at [address] Amended: Links added.
[2020-12-15 16:04] LABS: BASOPHILS # (AUTO) 0.1 X10'3 (0-0.2); BASOPHILS % (AUTO) 0.7 % (0-1); EOSINOPHILS # (AUTO) 0.3 X10'3 (0-0.9); EOSINOPHILS % (AUTO) 2.3 % (0-6); HEMATOCRIT 30.7 % (42.0-52.0); HEMOGLOBIN 10.1 g/dl (14.0-17.9); LYMPHOCYTES % (AUTO) 6.6 % (21-51); MEAN CORPUSCULAR HEMOGLOBIN 32.6 PG (27.0-31.0); MEAN CORPUSCULAR HGB CONC 32.8 g/dL (33.0-36.5); MEAN CORPUSCULAR VOLUME 99.4 FL (78-98); MEAN PLATELET VOLUME 8.7 FL (7.4-10.4); MONOCYTES # (AUTO) 1.3 X10'3 (0-0.9); MONOCYTES % (AUTO) 8.5 % (2-12); NEUTROPHILS # (AUTO) 12.6 X10'3 (1.8-7.7); NEUTROPHILS % (AUTO) 81.9 % (42-75); PLATELET COUNT 106 X10'3 (140-440); RED BLOOD COUNT 3.08 X10'6 (4.70-6.10); RED CELL DISTRIBUTION WIDTH 15.6 % (11.5-14.5); WHITE BLOOD COUNT 15.3 X10'3 (4.5-11.0)
[2020-12-15 16:19] LABS: ALBUMIN 1.9 G/DL (3.4-5.0); ANION GAP 8 (8-16); BLOOD UREA NITROGEN 26 MG/DL (7-18); BUN/CREATININE RATIO 11.5 (5.4-32.0); CALCIUM 8.3 MG/DL (8.5-10.1); CHLORIDE 107 MMOL/L (99-107); CREATININE 2.27 MG/DL (0.60-1.10); GLUCOSE 125 MG/DL (70-104); MAGNESIUM 1.9 MG/DL (1.5-2.4); PHOSPHORUS 2.8 MG/DL (2.3-4.5); POTASSIUM 4.4 MMOL/L (3.5-5.1); PREALBUMIN 14.2 MG/DL (19-36); SODIUM 142 MMOL/L (135-145); TOTAL CARBON DIOXIDE 27.4 MMOL/L (24-32); TRIGLYCERIDES 157 MG/DL (20-135); eGFR 30 ML/MIN
--- NOTE | 2020-12-15 18:20 | NUR ---
Patient in room ICU 2042. I have received report from MANDY Linton and had the opportunity to ask questions and assume patient care.
[2020-12-15] MEDS: piperacillin/tazobactam inj. 3.375 GM in NS 50ml IV SCH (18:56)
[2020-12-15] MEDS: heparin 25,000 UNIT/250ml bag 250 ML IV SCH ×2 (20:50)
[2020-12-15] MEDS: insulin glargine (Lantus) pen - multi-dose SQ SCH (20:50)
[2020-12-15] MEDS ORDERED: [UNRECOGNIZED DRUG - REMARK] IV SCH ×5 (21:00)
--- NOTE | 2020-12-15 22:00 | NUR ---
Patient is having periods of activity that resembles "hiccups", these periods lasting a few minutes. Peak pressures 40-50 on the ventilator. Occasionally patient will spontaneously open his eyes, have a right side gaze that will slowly move to midline when head is moved. Pupils remain sluggish to react to light and unequal, right pupil 4mm, left pupil 3mm. Patient will move his mouth with oral care stimuli. Patient does not follow commands and remains unresponsive to painful stimuli.
[2020-12-15 22:30] LABS: BASOPHILS # (AUTO) 0.1 X10'3 (0-0.2); BASOPHILS % (AUTO) 0.6 % (0-1); EOSINOPHILS # (AUTO) 0.4 X10'3 (0-0.9); EOSINOPHILS % (AUTO) 2.6 % (0-6); HEMATOCRIT 30.6 % (42.0-52.0); LYMPHOCYTES # (AUTO) 0.8 X10'3 (1.1-4.8); LYMPHOCYTES % (AUTO) 5.5 % (21-51); MEAN CORPUSCULAR HEMOGLOBIN 32.4 PG (27.0-31.0); MEAN CORPUSCULAR HGB CONC 32.7 g/dL (33.0-36.5); MEAN CORPUSCULAR VOLUME 99.1 FL (78-98); MEAN PLATELET VOLUME 8.7 FL (7.4-10.4); MONOCYTES # (AUTO) 1.4 X10'3 (0-0.9); MONOCYTES % (AUTO) 9.1 % (2-12); NEUTROPHILS # (AUTO) 12.5 X10'3 (1.8-7.7); NEUTROPHILS % (AUTO) 82.2 % (42-75); PLATELET COUNT 105 X10'3 (140-440); RED BLOOD COUNT 3.09 X10'6 (4.70-6.10); RED CELL DISTRIBUTION WIDTH 15.6 % (11.5-14.5); WHITE BLOOD COUNT 15.2 X10'3 (4.5-11.0)
[2020-12-15 22:38] LABS: ALBUMIN 1.9 G/DL (3.4-5.0); ANION GAP 8 (8-16); BLOOD UREA NITROGEN 25 MG/DL (7-18); CALCIUM 8.4 MG/DL (8.5-10.1); CHLORIDE 105 MMOL/L (99-107); CREATININE 2.09 MG/DL (0.60-1.10); GLUCOSE 152 MG/DL (70-104); PHOSPHORUS 2.7 MG/DL (2.3-4.5); POTASSIUM 4.3 MMOL/L (3.5-5.1); SODIUM 140 MMOL/L (135-145); TOTAL CARBON DIOXIDE 27.1 MMOL/L (24-32); eGFR 33 ML/MIN
[2020-12-16] VITALS (24 sets, daily range): BP systolic 95–187; BP diastolic 46–86
[2020-12-16] MEDS: piperacillin/tazobactam inj. 3.375 GM in NS 50ml IV SCH ×3 (00:07→15:56)
[2020-12-16] MEDS: Duosol 4K/3 Ca (w/calcium) 5,000 ML HE SCH ×16 (00:32→17:07)
--- NOTE | 2020-12-16 02:20 | NUR ---
Patient peak pressure on ventilator at 40-50's. Patient eyes open, tearful, patient blinking - patient not following commands at this time. Patient does have a startle response. Patient does not respond to painful stimuli. During episode patient not able to maintain tidal volumes, respiratory rate increased to 25 breaths per minute. Fentanyl bolus of 25mcg administered per order and policy to obtain increased synchrony with ventilator.
[2020-12-16] MEDS: mineral oil/petrolatum ophthal oint EACHEYE SCH ×4 (02:24→21:32)
[2020-12-16 02:26] LABS: ABG HCO3 26.3 mmol/L (22.0-26.0); ABG OXYGEN SATURATION 97.2 % (94-97); ABG PCO2 (T) 44.7 mmHg (35.0-48.0); ABG PO2 (T) 100.7 mmHg (75.0-100.0); FCOHb 0.2 % (0.0-3.9); FMetHb 0.2 % (0.0-1.5); FO2Hb 96.8 % (94-97); PATIENT TEMPERATURE 36.9; PEEP 8 cm H2O; RESPIRATORY RATE 20 b/min; TIDAL VOLUME 500 mL; TOTAL HEMOGLOBIN 11.1 G/dl (14.0-18.0)
[2020-12-16] MEDS: heparin 25,000 UNIT/250ml bag 250 ML IV SCH ×3 (02:27→15:35)
[2020-12-16] MEDS: ipratropium/albuterol 3ml nebule NEB SCH ×6 (02:29→22:51)
[2020-12-16] MEDS: FENTANYL 1000MCG/NS 100 ML BAG /PF IV PRN ×2 (02:30→16:07)
--- NOTE | 2020-12-16 03:00 | NUR ---
Patient peak pressuring on ventilator to 40-50. Not maintaining tidal volumes, decreased oxygen saturation. Patient hypertensive with MAP >110. Increased oral secretions. Patient with decerebrate posturing with oral suctioning. Fentanyl bolus of 25mcg administered per order with improved compliance with ventilator.
--- NOTE | 2020-12-16 03:50 | NUR ---
Patient unable to tolerate movement for bed bath, or shampoo cap placed on his head. Peak pressure on ventilator, decerebrate posturing, CVVH alarming. Stimuli stopped, Fentanyl bolus administered. Patient condition improved.
--- NOTE | 2020-12-16 04:00 | NUR ---
Central line dressing, arterial line dressing and peripheral line dressings not changed during this shift secondary to patients response to stimuli. Causing oxygen desaturation, hypertension, decreased tidal volumes, peak pressure, also causing the access pressure to alarm on the CVVH machine.
[2020-12-16 04:22] LABS: BASOPHILS # (AUTO) 0.1 X10'3 (0-0.2); BASOPHILS % (AUTO) 0.5 % (0-1); EOSINOPHILS # (AUTO) 0.3 X10'3 (0-0.9); EOSINOPHILS % (AUTO) 2.3 % (0-6); HEMATOCRIT 31.3 % (42.0-52.0); HEMOGLOBIN 10.3 g/dl (14.0-17.9); LYMPHOCYTES # (AUTO) 0.8 X10'3 (1.1-4.8); LYMPHOCYTES % (AUTO) 5.7 % (21-51); MEAN CORPUSCULAR HEMOGLOBIN 32.7 PG (27.0-31.0); MEAN CORPUSCULAR HGB CONC 32.9 g/dL (33.0-36.5); MEAN CORPUSCULAR VOLUME 99.3 FL (78-98); MEAN PLATELET VOLUME 8.5 FL (7.4-10.4); MONOCYTES # (AUTO) 1.3 X10'3 (0-0.9); MONOCYTES % (AUTO) 9.1 % (2-12); NEUTROPHILS # (AUTO) 11.9 X10'3 (1.8-7.7); NEUTROPHILS % (AUTO) 82.4 % (42-75); PLATELET COUNT 105 X10'3 (140-440); RED BLOOD COUNT 3.15 X10'6 (4.70-6.10); RED CELL DISTRIBUTION WIDTH 15.5 % (11.5-14.5); WHITE BLOOD COUNT 14.4 X10'3 (4.5-11.0)
[2020-12-16] MEDS ORDERED: VANCOMYCIN LEVEL IV ONE (04:30)
[2020-12-16 04:34] LABS: ALBUMIN 2.1 G/DL (3.4-5.0); ANION GAP 8 (8-16); BLOOD UREA NITROGEN 24 MG/DL (7-18); BUN/CREATININE RATIO 11.9 (5.4-32.0); CALCIUM 8.4 MG/DL (8.5-10.1); CHLORIDE 105 MMOL/L (99-107); CREATININE 2.02 MG/DL (0.60-1.10); GLUCOSE 190 MG/DL (70-104); PHOSPHORUS 2.9 MG/DL (2.3-4.5); POTASSIUM 4.5 MMOL/L (3.5-5.1); SODIUM 140 MMOL/L (135-145); TOTAL CARBON DIOXIDE 26.9 MMOL/L (24-32); VANCOMYCIN,TROUGH 6.6 UG/ML (6.0-14.0); eGFR 34 ML/MIN
--- NOTE | 2020-12-16 04:38 | NUR ---
Dr. Hill updated on patients condition during telemed rounds. She will place orders to renew restraints.
[2020-12-16] MEDS: VANCOMYCIN 750MG IV in NS 250 ML IV SCH (04:58)
--- NOTE | 2020-12-16 05:30 | NUR ---
Seizure activity noted. Patient observed to have episodes of full myoclonic activity in all extremities and torso. Patient had two events each lasting 30 seconds with 30 seconds between episodes. During episodes patient peak pressuring on ventilator, low tidal volumes. CVVH with low access pressure alarm. Dr. Hill was called, order will be placed for Ativan.
[2020-12-16] MEDS: NOREPINEPHRINE BITARTRATE/D5W 250 ML IV SCH ×2 (05:33→17:07)
[2020-12-16] MEDS ORDERED: LORazepam 2 mg/ml vial ONE (05:34)
[2020-12-16] MEDS: LORazepam 2 mg/ml vial IV PRN ×4 (05:36→23:27)
[2020-12-16 06:10] LABS: TOTAL CELLS COUNTED 100
[2020-12-16 06:11] LABS: PLATELET ESTIMATE DECREASED
--- NOTE | 2020-12-16 06:22 | NUR ---
Problems reprioritized. Patient report given, questions answered & plan of care reviewed with MANDY Cintron and MANDY Jain.
[2020-12-16] MEDS: K, MAG and/or Phos replacement - Verify level? MC SCH (07:18)
[2020-12-16] MEDS: budesonide 0.5mg/2ml UD nebule IH SCH ×2 (07:22→20:15)
[2020-12-16] MEDS: levetiracetam-NS 1000mg/100ml 100 ML IV SCH ×2 (08:14→21:32)
[2020-12-16] MEDS: ARIPIPRAZOLE 10 MG TABLET OGT SCH (08:14)
[2020-12-16] MEDS: docusate sodium 100mg/10ml UD cup OGT SCH ×2 (08:14→20:00)
[2020-12-16] MEDS: famotidine/PF 10 mg/ml inj IV SCH (08:14)
[2020-12-16] MEDS: vitamin D (cholecalciferol) 1,000 unit tablet OGT SCH (08:15)
[2020-12-16] MEDS: lactobacillus rhamnosus 10,000 MMU CELLS/CAPSULE PO SCH ×2 (08:15→21:32)
[2020-12-16] MEDS: insulin regular, human U-100 3ml vial - multi-dose SQ SCH ×3 (08:30→22:13)
[2020-12-16] MEDS: venlafaxine XR 75mg capsule (Q24H) PO SCH (08:31)
[2020-12-16 10:12] LABS: BASOPHILS # (AUTO) 0.1 X10'3 (0-0.2); BASOPHILS % (AUTO) 0.9 % (0-1); EOSINOPHILS # (AUTO) 0.3 X10'3 (0-0.9); EOSINOPHILS % (AUTO) 2.2 % (0-6); HEMATOCRIT 31.2 % (42.0-52.0); HEMOGLOBIN 10.3 g/dl (14.0-17.9); LYMPHOCYTES # (AUTO) 0.6 X10'3 (1.1-4.8); LYMPHOCYTES % (AUTO) 4.3 % (21-51); MEAN CORPUSCULAR HEMOGLOBIN 32.5 PG (27.0-31.0); MEAN CORPUSCULAR HGB CONC 32.9 g/dL (33.0-36.5); MEAN PLATELET VOLUME 8.6 FL (7.4-10.4); MONOCYTES # (AUTO) 1.4 X10'3 (0-0.9); MONOCYTES % (AUTO) 9.4 % (2-12); NEUTROPHILS # (AUTO) 12.4 X10'3 (1.8-7.7); NEUTROPHILS % (AUTO) 83.2 % (42-75); PLATELET COUNT 114 X10'3 (140-440); RED BLOOD COUNT 3.16 X10'6 (4.70-6.10); RED CELL DISTRIBUTION WIDTH 15.9 % (11.5-14.5); WHITE BLOOD COUNT 14.9 X10'3 (4.5-11.0)
[2020-12-16 10:25] LABS: ANION GAP 7 (8-16); BLOOD UREA NITROGEN 23 MG/DL (7-18); BUN/CREATININE RATIO 11.9 (5.4-32.0); CALCIUM 8.4 MG/DL (8.5-10.1); CHLORIDE 103 MMOL/L (99-107); CREATININE 1.93 MG/DL (0.60-1.10); GLUCOSE 242 MG/DL (70-104); PHOSPHORUS 2.5 MG/DL (2.3-4.5); POTASSIUM 4.1 MMOL/L (3.5-5.1); SODIUM 137 MMOL/L (135-145); TOTAL CARBON DIOXIDE 26.9 MMOL/L (24-32); eGFR 36 ML/MIN
[2020-12-16] MEDS: niCARDipine-NS 40mg/200ml IVPB 200 ML IV SCH (11:03)
--- NOTE | 2020-12-16 11:44 | NUR ---
TF Consult: Pt GRV 75ml suction so far this AM s/p rectal tube in place for liquid stools volume pending in EMR. Certified Travel Counselor is agreeable to trial trickle EN at 10ml/hr today and monitor for tolerance; EN recs below. IF EN able to advance and tolerating then may wean PN as medically indicated per MD. Will monitor for EN tolerance. Rec: 1) Continuous TPN via central line using 02/14 Clinimix non-E 1L bag with 50 mL 20% intralipids at 90 mL/hr. To begin at 30 mL/hr and advance to goal after 12 hours if pt tolerating. Once at goal to provide: 2160 mL total volume/day, 410 g dextrose (2.43 mg/kg/min), 101.5 g AA (61% EPN), 20.5 g lipids, and 2005 kcal 2) Monitor for PN tolerance 3) Prealbumin/TG q Thursday/; daily wts 4) Trickle continuous TF via OG per MD using Vital High Protein at 10ml/hr; to provide 240ml volume, 240kcals, 202ml free water, and 21g protein. 5) IF TF to advance: recommend Vital High Protein at 85 mL/hr goal; advance by 20mL Q8H as tolerated to goal rate. Once at goal to provide 2040 mL total volume/day, 2040 kcal, 1714 mL water, and 179 g protein 6) Once TF, additional water flush per cone tender given CVVH 7) Routine bowel care 8) Upon extubation; advance diet as medically indicated to carb controlled/heart healthy 9) DM ed once appropriate as medically indicated following extubation; A1c 9.2% Addendum: 12/16/20 at [address] Amended: Links added.
--- NOTE | 2020-12-16 11:48 | NUR ---
Patient has had periodic episodes of "seizure like" activity. Patient becomes tremulous, blood pressure elevates with SBP in the 190s, peak pressures on the ventilator, pupils dilate, and oxygen saturation begins to drop. Each episode lasts 10-20 seconds with no apparent trigger. MD aware, tele-neuro consult obtained. MRI scheduled for this evening.
--- NOTE | 2020-12-16 12:09 | NUR ---
Pt turned and CVVH machine went down at 1130 due to venous air that could not be resolved. Since repositioning, pt has been tachycardic 110-120 with increased ectopy, often in bigeminy. Pt has been peak pressuring on the vent and sats have dropped into low 90s. One 25mcg cc bolus of fentanyl given without any relief. Asked daughter to refrain from talking to or touching the pt to decrease verbal and tactile stimuli. K, mg, and phos drawn for EKG changes. Fent gtt turned back on @ 50 mcg/hr until pt appears more comfortable. Pt still does not react to pain or do anything purposeful
[2020-12-16 12:37] LABS: POTASSIUM 4.2 MMOL/L (3.5-5.1)
[2020-12-16] MEDS: [UNRECOGNIZED DRUG - REMARK] IV SCH ×5 (14:46)
[2020-12-16] MEDS ORDERED: heparin 10,000 units/1 ML INJ IV PRN (15:20)
[2020-12-16] MEDS ORDERED: heparin 25,000 UNIT/250ml bag 250 ML IV SCH (15:20)
[2020-12-16 15:34] LABS: BASOPHILS % (AUTO) 0.3 % (0-1); EOSINOPHILS # (AUTO) 0.3 X10'3 (0-0.9); EOSINOPHILS % (AUTO) 2.4 % (0-6); HEMATOCRIT 28.6 % (42.0-52.0); HEMOGLOBIN 9.4 g/dl (14.0-17.9); LYMPHOCYTES # (AUTO) 0.5 X10'3 (1.1-4.8); LYMPHOCYTES % (AUTO) 3.8 % (21-51); MEAN CORPUSCULAR HEMOGLOBIN 32.7 PG (27.0-31.0); MEAN CORPUSCULAR HGB CONC 32.9 g/dL (33.0-36.5); MEAN CORPUSCULAR VOLUME 99.4 FL (78-98); MEAN PLATELET VOLUME 8.7 FL (7.4-10.4); MONOCYTES # (AUTO) 1.4 X10'3 (0-0.9); MONOCYTES % (AUTO) 10.1 % (2-12); NEUTROPHILS # (AUTO) 11.5 X10'3 (1.8-7.7); NEUTROPHILS % (AUTO) 83.4 % (42-75); PLATELET COUNT 105 X10'3 (140-440); RED BLOOD COUNT 2.87 X10'6 (4.70-6.10); RED CELL DISTRIBUTION WIDTH 15.7 % (11.5-14.5); WHITE BLOOD COUNT 13.8 X10'3 (4.5-11.0)
[2020-12-16 15:38] LABS: ALBUMIN 1.9 G/DL (3.4-5.0); ANION GAP 5 (8-16); BLOOD UREA NITROGEN 27 MG/DL (7-18); BUN/CREATININE RATIO 12.1 (5.4-32.0); CALCIUM 8.1 MG/DL (8.5-10.1); CHLORIDE 104 MMOL/L (99-107); CREATININE 2.24 MG/DL (0.60-1.10); GLUCOSE 309 MG/DL (70-104); PHOSPHORUS 2.7 MG/DL (2.3-4.5); POTASSIUM 4.2 MMOL/L (3.5-5.1); SODIUM 136 MMOL/L (135-145); TOTAL CARBON DIOXIDE 27.3 MMOL/L (24-32); eGFR 30 ML/MIN
[2020-12-16] MEDS ORDERED: vancomycin/NS 1 GM ADD-VANTAGE 250 ML X 1 DOSE IV SCH (16:00)
[2020-12-16] MEDS ORDERED: heparin 1,000 units/ml 10ml inj HE ONE ×2 (17:50)
--- NOTE | 2020-12-16 18:15 | NUR ---
Patient in room ICU 2042. I have received report from MANDY Cintron and MANDY Jain and had the opportunity to ask questions and assume patient care. CVVH is being taken down by MANDY Cintron. Blood returned and yu flushed with heparin and capped. Patient is intubated 45% FiO2 respiratory rate 21, Tidal volumes 570's, PEEP 5. Patient with templeton cath and rectal tube in place. See IV spreadsheet for IV infusions and rates. Patient is having hematuria, blood noted in the OG tube, per report patient is also having blood in his stool. Patient continues to have epistaxis and currently has saline soaked gauze to both nares. MD aware per report. Patient is scheduled to go to [facility] at 1900.
--- NOTE | 2020-12-16 19:00 | NUR ---
Patient to MRI with RT, RN, senior quality technician and SPACE SYSTEMS OPERATIONS SUPERINTENDENT. Patient placed on transport monitor, portable ventilator and transferred to [facility].
--- NOTE | 2020-12-16 20:00 | NUR ---
Patient back from MRI.
[2020-12-16] MEDS: insulin glargine (Lantus) pen - multi-dose SQ SCH (22:12)
--- NOTE | 2020-12-16 23:30 | NUR ---
Phone call to Dr. Coppola, patient having myoclonic twitching to all extremities and torso with decerebrate posturing. Two episodes: first episode lasting approximately 30-60 seconds with a break after ativan 2 mg administered IV. Approximately 8 minutes later patient with second episode. Second dose of Ativan [address] Coppola called, he will place orders for Versed drip.
[2020-12-17] VITALS (24 sets, daily range): BP systolic 105–146; BP diastolic 51–69
[2020-12-17] MEDS: midazolam 100mg in NS 100ml 100 ML IV SCH ×2 (00:14→10:49)
[2020-12-17] MEDS: niCARDipine-NS 40mg/200ml IVPB 200 ML IV SCH ×4 (00:17→18:20)
[2020-12-17] MEDS: piperacillin/tazobactam inj. 3.375 GM in NS 50ml IV SCH ×3 (00:30→15:51)
--- NOTE | 2020-12-17 00:30 | NUR ---
PTT 40. Dr. Coppola called. Per Dr. Pleitez's note the protocol was to be changed from the DVT protocol to the Cardiac protocol. No change was made in the eMAR. Current orders are to increase heparin by 200 u/hr and give a bolus. Made MD aware of bleeding from nose, OG tube, templeton catheter. VERBAL ORDER to not increase current heparin dose and to allow for reassessment by Dr. Pleitez tomorrow.
[2020-12-17] MEDS: mineral oil/petrolatum ophthal oint EACHEYE SCH ×4 (02:33→20:16)
[2020-12-17] MEDS: [UNRECOGNIZED DRUG - REMARK] IV SCH ×10 (02:33→15:07)
[2020-12-17] MEDS: heparin 25,000 UNIT/250ml bag 250 ML IV SCH ×2 (02:41→20:09)
[2020-12-17] MEDS: insulin regular, human U-100 3ml vial - multi-dose SQ SCH ×2 (02:45→08:23)
[2020-12-17] MEDS: ipratropium/albuterol 3ml nebule NEB SCH ×6 (03:28→23:19)
[2020-12-17 03:39] LABS: ABG BASE EXCESS -2.3 mmol/L (-2.0-2.0); ABG HCO3 22.8 mmol/L (22.0-26.0); ABG OXYGEN SATURATION 96.6 % (94-97); ABG PCO2 (T) 39.5 mmHg (35.0-48.0); ABG PO2 (T) 87.2 mmHg (75.0-100.0); FCOHb 0.3 % (0.0-3.9); FMetHb 0.2 % (0.0-1.5); FO2Hb 96.1 % (94-97); PATIENT TEMPERATURE 36.4; PEEP 5 cm H2O; RESPIRATORY RATE 20 b/min; TIDAL VOLUME 500 mL; TOTAL HEMOGLOBIN 9.8 G/dl (14.0-18.0)
[2020-12-17 04:28] LABS: BASOPHILS # (AUTO) 0.1 X10'3 (0-0.2); BASOPHILS % (AUTO) 0.6 % (0-1); EOSINOPHILS # (AUTO) 0.3 X10'3 (0-0.9); EOSINOPHILS % (AUTO) 2.6 % (0-6); HEMATOCRIT 26.9 % (42.0-52.0); HEMOGLOBIN 8.9 g/dl (14.0-17.9); LYMPHOCYTES # (AUTO) 0.7 X10'3 (1.1-4.8); LYMPHOCYTES % (AUTO) 5.9 % (21-51); MEAN CORPUSCULAR HEMOGLOBIN 32.9 PG (27.0-31.0); MEAN CORPUSCULAR HGB CONC 33.1 g/dL (33.0-36.5); MEAN CORPUSCULAR VOLUME 99.5 FL (78-98); MEAN PLATELET VOLUME 9.3 FL (7.4-10.4); MONOCYTES % (AUTO) 9.1 % (2-12); NEUTROPHILS # (AUTO) 9.1 X10'3 (1.8-7.7); NEUTROPHILS % (AUTO) 81.8 % (42-75); PLATELET COUNT 108 X10'3 (140-440); RED BLOOD COUNT 2.71 X10'6 (4.70-6.10); RED CELL DISTRIBUTION WIDTH 15.8 % (11.5-14.5); WHITE BLOOD COUNT 11.1 X10'3 (4.5-11.0)
[2020-12-17 04:35] LABS: ALBUMIN 1.9 G/DL (3.4-5.0); ANION GAP 9 (8-16); BLOOD UREA NITROGEN 38 MG/DL (7-18); BUN/CREATININE RATIO 12.1 (5.4-32.0); CHLORIDE 102 MMOL/L (99-107); CREATININE 3.15 MG/DL (0.60-1.10); GLUCOSE 395 MG/DL (70-104); PHOSPHORUS 3.1 MG/DL (2.3-4.5); POTASSIUM 4.1 MMOL/L (3.5-5.1); SODIUM 136 MMOL/L (135-145); TOTAL CARBON DIOXIDE 25.5 MMOL/L (24-32); TRIGLYCERIDES 145 MG/DL (20-135); eGFR 20 ML/MIN
--- NOTE | 2020-12-17 05:09 | NUR ---
Discussed patient status with Dr. Clemons via telemed rounds. recommendations to decrease sedation for morning neuro exam. made MD aware of not titrating Heparin per Dr. Coppola orders. No new orders at this time.
[2020-12-17] MEDS: NOREPINEPHRINE BITARTRATE/D5W 250 ML IV SCH ×2 (06:01→17:07)
--- NOTE | 2020-12-17 06:37 | NUR ---
Problems reprioritized. Patient report given, questions answered & plan of care reviewed with MANDY Haines.
[2020-12-17] MEDS ORDERED: epoetin 20,000 units/ml inj IV ONE (08:00)
[2020-12-17] MEDS ORDERED: heparin 1,000 units/ml 10ml inj HE ONE ×2 (08:00)
[2020-12-17] MEDS: lactobacillus rhamnosus 10,000 MMU CELLS/CAPSULE PO SCH ×2 (08:00→20:15)
[2020-12-17] MEDS: K, MAG and/or Phos replacement - Verify level? MC SCH (08:00)
[2020-12-17] MEDS ORDERED: albumin (human) 25% 100ml IV 100 ML IV PRN (08:00)
[2020-12-17] MEDS: budesonide 0.5mg/2ml UD nebule IH SCH ×2 (08:05→19:15)
[2020-12-17] MEDS: docusate sodium 100mg/10ml UD cup OGT SCH ×2 (08:48→20:15)
[2020-12-17] MEDS: ARIPIPRAZOLE 10 MG TABLET OGT SCH (08:48)
[2020-12-17] MEDS: levetiracetam-NS 1000mg/100ml 100 ML IV SCH ×2 (08:48→20:15)
[2020-12-17] MEDS: venlafaxine 37.5mg tablet OGT SCH ×3 (08:49→20:15)
[2020-12-17] MEDS: famotidine/PF 10 mg/ml inj IV SCH (08:49)
[2020-12-17] MEDS: vitamin D (cholecalciferol) 1,000 unit tablet OGT SCH (08:49)
[2020-12-17 09:59] LABS: ELLIPTOCYTES FEW; HYPOCHROMASIA 1+; PLATELET ESTIMATE DECREASED; SCHISTOCYTES FEW; TOTAL CELLS COUNTED 100
[2020-12-17 10:00] LABS: LARGE PLATELETS FEW
[2020-12-17] MEDS ORDERED: dextrose 50%-water 50ml dispensing syringe IV PRN (10:40)
[2020-12-17] MEDS ORDERED: heparin 10,000 units/1 ML INJ IV ONE (10:40)
[2020-12-17] MEDS: FENTANYL 1000MCG/NS 100 ML BAG /PF IV PRN (10:48)
--- NOTE | 2020-12-17 11:04 | NUR ---
Daughter at bedside, updated on patient's condition. Dr Pleitez will see daughter after rounds. HD in progress.
[2020-12-17 11:32] LABS: HEMATOCRIT 26.6 % (42.0-52.0); HEMOGLOBIN 8.8 g/dl (14.0-17.9); MEAN CORPUSCULAR HEMOGLOBIN 32.7 PG (27.0-31.0); MEAN PLATELET VOLUME 8.8 FL (7.4-10.4); PLATELET COUNT 118 X10'3 (140-440); RED BLOOD COUNT 2.68 X10'6 (4.70-6.10); RED CELL DISTRIBUTION WIDTH 15.7 % (11.5-14.5); WHITE BLOOD COUNT 11.7 X10'3 (4.5-11.0)
[2020-12-17 12:46] LABS: ANION GAP 6 (8-16); BLOOD UREA NITROGEN 30 MG/DL (7-18); BUN/CREATININE RATIO 11.5 (5.4-32.0); CALCIUM 8.1 MG/DL (8.5-10.1); CHLORIDE 101 MMOL/L (99-107); CREATININE 2.62 MG/DL (0.60-1.10); GLUCOSE 247 MG/DL (70-104); PHOSPHORUS 3.1 MG/DL (2.3-4.5); POTASSIUM 3.7 MMOL/L (3.5-5.1); SODIUM 135 MMOL/L (135-145); TOTAL CARBON DIOXIDE 27.8 MMOL/L (24-32); eGFR 25 ML/MIN
[2020-12-17] MEDS: Insulin Reg/NS 100units/100mL 100 ML IV SCH ×2 (13:36→22:24)
[2020-12-17] MEDS: VANCOMYCIN 750MG IV in NS 250 ML IV SCH (15:51)
--- NOTE | 2020-12-17 18:15 | NUR ---
Patient in room ICU 2042. I have received report from MANDY Haines and had the opportunity to ask questions and assume patient care. Patient intubated/sedated, I will continue to monitor.
[2020-12-17 23:47] LABS: HEMATOCRIT 26.6 % (42.0-52.0); HEMOGLOBIN 8.9 g/dl (14.0-17.9); MEAN CORPUSCULAR HEMOGLOBIN 32.7 PG (27.0-31.0); MEAN CORPUSCULAR HGB CONC 33.4 g/dL (33.0-36.5); MEAN CORPUSCULAR VOLUME 97.9 FL (78-98); MEAN PLATELET VOLUME 8.8 FL (7.4-10.4); PLATELET COUNT 132 X10'3 (140-440); RED BLOOD COUNT 2.72 X10'6 (4.70-6.10); RED CELL DISTRIBUTION WIDTH 15.1 % (11.5-14.5); WHITE BLOOD COUNT 12.9 X10'3 (4.5-11.0)
[2020-12-17 23:58] LABS: ALBUMIN 1.9 G/DL (3.4-5.0); ANION GAP 10 (8-16); BLOOD UREA NITROGEN 34 MG/DL (7-18); BUN/CREATININE RATIO 10.5 (5.4-32.0); CALCIUM 8.1 MG/DL (8.5-10.1); CHLORIDE 101 MMOL/L (99-107); CREATININE 3.24 MG/DL (0.60-1.10); GLUCOSE 224 MG/DL (70-104); MAGNESIUM 1.9 MG/DL (1.5-2.4); PHOSPHORUS 3.7 MG/DL (2.3-4.5); POTASSIUM 4.1 MMOL/L (3.5-5.1); SODIUM 136 MMOL/L (135-145); TOTAL CARBON DIOXIDE 25.4 MMOL/L (24-32); eGFR 20 ML/MIN
[2020-12-18] VITALS (23 sets, daily range): BP systolic 111–163; BP diastolic 55–71
[2020-12-18] MEDS: heparin 10,000 units/1 ML INJ IV PRN ×2 (00:06→12:47)
[2020-12-18] MEDS: piperacillin/tazobactam inj. 3.375 GM in NS 50ml IV SCH ×3 (00:11→15:52)
[2020-12-18] MEDS: niCARDipine-NS 40mg/200ml IVPB 200 ML IV SCH ×3 (02:20→18:20)
[2020-12-18] MEDS: [UNRECOGNIZED DRUG - REMARK] IV SCH ×10 (02:59→14:30)
[2020-12-18] MEDS: Insulin Reg/NS 100units/100mL 100 ML IV SCH ×5 (03:06→18:39)
[2020-12-18] MEDS: heparin 25,000 UNIT/250ml bag 250 ML IV SCH (03:07)
[2020-12-18] MEDS: mineral oil/petrolatum ophthal oint EACHEYE SCH ×4 (03:08→20:17)
[2020-12-18] MEDS: ipratropium/albuterol 3ml nebule NEB SCH ×6 (03:24→23:20)
[2020-12-18 03:32] LABS: ABG BASE EXCESS -0.4 mmol/L (-2.0-2.0); ABG HCO3 25.7 mmol/L (22.0-26.0); ABG OXYGEN SATURATION 95.1 % (94-97); ABG PO2 (T) 77.4 mmHg (75.0-100.0); FMetHb 0.3 % (0.0-1.5); FO2Hb 94.8 % (94-97); PEEP 5 cm H2O; RESPIRATORY RATE 20 b/min; TIDAL VOLUME 500 mL; TOTAL HEMOGLOBIN 9.8 G/dl (14.0-18.0)
[2020-12-18 03:57] LABS: BASOPHILS # (AUTO) 0.1 X10'3 (0-0.2); BASOPHILS % (AUTO) 0.4 % (0-1); EOSINOPHILS # (AUTO) 0.5 X10'3 (0-0.9); EOSINOPHILS % (AUTO) 3.6 % (0-6); HEMATOCRIT 27.8 % (42.0-52.0); LYMPHOCYTES # (AUTO) 0.8 X10'3 (1.1-4.8); LYMPHOCYTES % (AUTO) 5.6 % (21-51); MEAN CORPUSCULAR HEMOGLOBIN 32.3 PG (27.0-31.0); MEAN CORPUSCULAR HGB CONC 32.5 g/dL (33.0-36.5); MEAN CORPUSCULAR VOLUME 99.5 FL (78-98); MEAN PLATELET VOLUME 9.5 FL (7.4-10.4); MONOCYTES # (AUTO) 1.3 X10'3 (0-0.9); MONOCYTES % (AUTO) 8.9 % (2-12); NEUTROPHILS # (AUTO) 11.5 X10'3 (1.8-7.7); NEUTROPHILS % (AUTO) 81.5 % (42-75); PLATELET COUNT 154 X10'3 (140-440); RED CELL DISTRIBUTION WIDTH 15.6 % (11.5-14.5); WHITE BLOOD COUNT 14.1 X10'3 (4.5-11.0)
[2020-12-18 04:09] LABS: ALANINE AMINOTRANSFERASE 422 U/L (12-78); ALBUMIN 1.9 G/DL (3.4-5.0); ALBUMIN/GLOBULIN RATIO 0.5 (1.1-1.5); ALKALINE PHOSPHATASE 86 IU/L (46-116); ANION GAP 10 (8-16); ASPARTATE AMINO TRANSFERASE 57 U/L (10-37); BILIRUBIN,TOTAL 1.1 MG/DL (0.1-1.0); BLOOD UREA NITROGEN 37 MG/DL (7-18); BUN/CREATININE RATIO 10.5 (5.4-32.0); CHLORIDE 100 MMOL/L (99-107); CREATININE 3.52 MG/DL (0.60-1.10); GLUCOSE 192 MG/DL (70-104); MAGNESIUM 1.9 MG/DL (1.5-2.4); PHOSPHORUS 4.1 MG/DL (2.3-4.5); POTASSIUM 4.5 MMOL/L (3.5-5.1); SODIUM 136 MMOL/L (135-145); TOTAL CARBON DIOXIDE 26.3 MMOL/L (24-32); TOTAL PROTEIN 5.9 G/DL (6.4-8.2); TRIGLYCERIDES 107 MG/DL (20-135); eGFR 18 ML/MIN
[2020-12-18 04:44] LABS: ANISOCYTOSIS 1+; NUCLEATED RED BLOOD CELLS 1 /100WBC (0-0); PLATELET ESTIMATE NORMAL; POLYCHROMASIA FEW; TOTAL CELLS COUNTED 100
--- NOTE | 2020-12-18 06:15 | NUR ---
Problems reprioritized. Patient report given, questions answered & plan of care reviewed with MANDY Haines.
[2020-12-18] MEDS: NOREPINEPHRINE BITARTRATE/D5W 250 ML IV SCH (06:29)
[2020-12-18] MEDS: budesonide 0.5mg/2ml UD nebule IH SCH ×2 (07:08→19:12)
[2020-12-18] MEDS: levetiracetam-NS 1000mg/100ml 100 ML IV SCH ×2 (07:46→20:05)
[2020-12-18] MEDS: docusate sodium 100mg/10ml UD cup OGT SCH ×2 (07:47→20:13)
[2020-12-18] MEDS: famotidine/PF 10 mg/ml inj IV SCH (07:47)
[2020-12-18] MEDS: lactobacillus rhamnosus 10,000 MMU CELLS/CAPSULE PO SCH ×2 (07:48→20:13)
[2020-12-18] MEDS: ARIPIPRAZOLE 10 MG TABLET OGT SCH (07:49)
[2020-12-18] MEDS: venlafaxine 37.5mg tablet OGT SCH ×3 (07:49→20:13)
[2020-12-18] MEDS: vitamin D (cholecalciferol) 1,000 unit tablet OGT SCH (07:49)
[2020-12-18] MEDS: K, MAG and/or Phos replacement - Verify level? MC SCH (08:39)
[2020-12-18] MEDS: FENTANYL 1000MCG/NS 100 ML BAG /PF IV PRN (09:31)
--- NOTE | 2020-12-18 11:04 | NUR ---
F/u 12/18: Pt trickle EN not started r/t bleeding episodes via OG though now have resolved w/ no signs of bleeding per RN w/ trickle EN to initiate today per voip network technician at rounds. Pt now off CVVH receiving HD. Receiving routine colace w/ rectal tube in place no documented ml output per EMR though RN reports having stools. BMI 37 w/ 9kg wt gain and positive 17L fluid balance per EMR. Will monitor for EN tolerance and advancement as medically indicated; if to advance EN consider weaning PN as medically indicated. Rec: 1) Continuous TPN via central line using 02/14 Clinimix non-E 1L bag with 50 mL 20% intralipids at 90 mL/hr. To begin at 30 mL/hr and advance to goal after 12 hours if pt tolerating. Once at goal to provide: 2160 mL total volume/day, 410 g dextrose (2.43 mg/kg/min), 101.5 g AA (61% EPN), 20.5 g lipids, and 2005 kcal 2) Prealbumin/TG q Thursday/; daily wts 3) Trickle continuous TF via OG per MD using Vital High Protein at 10ml/hr; to provide 240ml volume, 240kcals, 202ml free water, and 21g protein. 4) IF TF to advance: recommend Vital High Protein at 85 mL/hr goal; advance by 20mL Q8H as tolerated to goal rate. Once at goal to provide 2040 mL total volume/day, 2040 kcal, 1714 mL water, and 179 g protein 5) Once TF, additional water flush per voip network technician on HD 6) Routine bowel care 7) Upon extubation; advance diet as medically indicated to carb controlled/heart healthy 8) DM ed once appropriate as medically indicated following extubation; A1c 9.2% Addendum: 12/18/20 at [address] Amended: Links added.
[2020-12-18 12:06] LABS: HEMATOCRIT 27.6 % (42.0-52.0); HEMOGLOBIN 9.1 g/dl (14.0-17.9); MEAN CORPUSCULAR HEMOGLOBIN 32.7 PG (27.0-31.0); MEAN CORPUSCULAR HGB CONC 32.8 g/dL (33.0-36.5); MEAN CORPUSCULAR VOLUME 99.5 FL (78-98); MEAN PLATELET VOLUME 8.8 FL (7.4-10.4); PLATELET COUNT 157 X10'3 (140-440); RED BLOOD COUNT 2.77 X10'6 (4.70-6.10); RED CELL DISTRIBUTION WIDTH 15.3 % (11.5-14.5); WHITE BLOOD COUNT 16.4 X10'3 (4.5-11.0)
[2020-12-18] MEDS: lisinopril 20mg tablet PO SCH (15:52)
[2020-12-18] MEDS: VANCOMYCIN 750MG IV in NS 250 ML IV SCH (15:53)
[2020-12-18] MEDS: midazolam 100mg in NS 100ml 100 ML IV SCH (18:37)
--- NOTE | 2020-12-18 20:00 | NUR ---
confirmed with pharmacy, saleem to crush effexor
[2020-12-19] VITALS (24 sets, daily range): BP systolic 98–159; BP diastolic 52–93
[2020-12-19] MEDS: piperacillin/tazobactam inj. 3.375 GM in NS 50ml IV SCH ×3 (00:22→20:46)
[2020-12-19] MEDS: [UNRECOGNIZED DRUG - REMARK] IV SCH ×5 (00:29)
[2020-12-19] MEDS: mineral oil/petrolatum ophthal oint EACHEYE SCH ×4 (02:11→20:46)
[2020-12-19] MEDS: niCARDipine-NS 40mg/200ml IVPB 200 ML IV SCH ×3 (02:20→18:20)
[2020-12-19] MEDS: Insulin Reg/NS 100units/100mL 100 ML IV SCH ×6 (02:27→20:57)
[2020-12-19] MEDS: ipratropium/albuterol 3ml nebule NEB SCH ×6 (03:27→23:05)
[2020-12-19 03:39] LABS: ABG BASE EXCESS -6.8 mmol/L (-2.0-2.0); ABG HCO3 19.4 mmol/L (22.0-26.0); ABG OXYGEN SATURATION 95.8 % (94-97); ABG PCO2 (T) 40.5 mmHg (35.0-48.0); ABG PO2 (T) 84.1 mmHg (75.0-100.0); FCOHb 0.3 % (0.0-3.9); FMetHb 0.4 % (0.0-1.5); FO2Hb 95.1 % (94-97); PATIENT TEMPERATURE 36.6; PEEP 5 cm H2O; RESPIRATORY RATE 22 b/min; TIDAL VOLUME 500 mL; TOTAL HEMOGLOBIN 9.9 G/dl (14.0-18.0)
[2020-12-19 03:47] LABS: ALANINE AMINOTRANSFERASE 267 U/L (12-78); ALBUMIN 1.7 G/DL (3.4-5.0); ALBUMIN/GLOBULIN RATIO 0.4 (1.1-1.5); ALKALINE PHOSPHATASE 76 IU/L (46-116); ANION GAP 13 (8-16); ASPARTATE AMINO TRANSFERASE 39 U/L (10-37); BILIRUBIN,TOTAL 0.9 MG/DL (0.1-1.0); BLOOD UREA NITROGEN 56 MG/DL (7-18); BUN/CREATININE RATIO 10.8 (5.4-32.0); CALCIUM 7.8 MG/DL (8.5-10.1); CHLORIDE 97 MMOL/L (99-107); CREATININE 5.19 MG/DL (0.60-1.10); GLUCOSE 149 MG/DL (70-104); MAGNESIUM 1.8 MG/DL (1.5-2.4); PHOSPHORUS 5.2 MG/DL (2.3-4.5); POTASSIUM 4.2 MMOL/L (3.5-5.1); SODIUM 131 MMOL/L (135-145); TOTAL CARBON DIOXIDE 20.8 MMOL/L (24-32); TOTAL PROTEIN 5.5 G/DL (6.4-8.2); TRIGLYCERIDES 112 MG/DL (20-135); eGFR 11 ML/MIN
[2020-12-19 03:58] LABS: BASOPHILS # (AUTO) 0.1 X10'3 (0-0.2); BASOPHILS % (AUTO) 0.4 % (0-1); EOSINOPHILS # (AUTO) 0.6 X10'3 (0-0.9); EOSINOPHILS % (AUTO) 3.8 % (0-6); HEMOGLOBIN 8.7 g/dl (14.0-17.9); LYMPHOCYTES # (AUTO) 0.8 X10'3 (1.1-4.8); LYMPHOCYTES % (AUTO) 5.2 % (21-51); MEAN CORPUSCULAR HGB CONC 32.3 g/dL (33.0-36.5); MEAN CORPUSCULAR VOLUME 99.2 FL (78-98); MONOCYTES # (AUTO) 1.7 X10'3 (0-0.9); MONOCYTES % (AUTO) 11.1 % (2-12); NEUTROPHILS # (AUTO) 12.5 X10'3 (1.8-7.7); NEUTROPHILS % (AUTO) 79.5 % (42-75); PLATELET COUNT 180 X10'3 (140-440); RED BLOOD COUNT 2.72 X10'6 (4.70-6.10); RED CELL DISTRIBUTION WIDTH 15.3 % (11.5-14.5); WHITE BLOOD COUNT 15.7 X10'3 (4.5-11.0)
[2020-12-19] MEDS ORDERED: insulin glargine (Lantus) pen - multi-dose SQ ONE (05:55)
--- NOTE | 2020-12-19 06:58 | NUR ---
Problems reprioritized. Patient report given, questions answered & plan of care reviewed with MANDY Dhillon.
[2020-12-19] MEDS: budesonide 0.5mg/2ml UD nebule IH SCH ×2 (07:49→19:16)
[2020-12-19] MEDS: docusate sodium 100mg/10ml UD cup OGT SCH ×2 (07:52→20:00)
[2020-12-19] MEDS: ARIPIPRAZOLE 10 MG TABLET OGT SCH (07:52)
[2020-12-19] MEDS: lactobacillus rhamnosus 10,000 MMU CELLS/CAPSULE PO SCH (07:52)
[2020-12-19] MEDS: famotidine/PF 10 mg/ml inj IV SCH (07:53)
[2020-12-19] MEDS: hydrALAZINE 20mg/ml inj. IV SCH ×3 (07:53→20:00)
[2020-12-19] MEDS: lisinopril 20mg tablet PO SCH (07:53)
[2020-12-19] MEDS: levetiracetam-NS 1000mg/100ml 100 ML IV SCH ×2 (07:54→20:47)
[2020-12-19] MEDS: venlafaxine 37.5mg tablet OGT SCH ×3 (07:54→20:30)
[2020-12-19] MEDS ORDERED: normal saline 1000ml 250 ML IV PRN (08:00)
[2020-12-19] MEDS ORDERED: atorvastatin 20mg tablet PO SCH (08:00)
[2020-12-19] MEDS ORDERED: EPOETIN ALFA-EPBX 20,000 UNIT/ML 1 ML MDV IV ONE (08:00)
[2020-12-19] MEDS ORDERED: heparin 1,000unit/ml 10ml vial 10 ML IV ONE (08:00)
[2020-12-19] MEDS: K, MAG and/or Phos replacement - Verify level? MC SCH (08:00)
[2020-12-19] MEDS ORDERED: heparin 1,000 units/ml 10ml inj HE ONE ×2 (08:00)
[2020-12-19] MEDS ORDERED: vancomycin/NS 1 GM ADD-VANTAGE 250 ML IV PRN (08:50)
[2020-12-19 09:49] LABS: HBSAG SCREEN Negative (Negative)
[2020-12-19] MEDS: vitamin D (cholecalciferol) 1,000 unit tablet OGT SCH (10:27)
[2020-12-19] MEDS: calcium acetate 667mg (PhosLO) capsule OGT SCH ×3 (10:27→17:50)
[2020-12-19] MEDS: FENTANYL 1000MCG/NS 100 ML BAG /PF IV PRN (10:43)
[2020-12-19] MEDS ORDERED: polyethylene glycol 3350 17gm powd pack PO ONE (12:10)
--- NOTE | 2020-12-19 14:06 | NUR ---
TF consult 12/19: Per RN at critical care rounds pt receiving dialysis today with Phoslo available. LBM 12/17. Bowel sounds are present per RN and pt will begin receiving Miralax daily per php mysql web developer. TF to be advanced to goal rate and TPN to be weaned with advancement of TF per php mysql web developer. See recommendations below. Will continue to follow closely. Rec: 1) Continuous Vital High Protein via OG tube at 85 mL/hr goal; Begin at 25 ml/hr and advance by 20mL Q8H as tolerated to goal rate. Once at goal to provide 2040 mL total volume/day, 2040 kcal, 1714 mL water, and 179 g protein 2) Wean TPN with advancement of TF 3) Water flush per php mysql web developer on HD 4) Prealbumin q Thursday/; daily wts 5) Upon extubation; advance diet as medically indicated to carb controlled/heart healthy 6) Routine bowel care 7) DM ed once appropriate as medically indicated following extubation; A1c 9.2% Addendum: 12/19/20 at [address] Amended: Links added. Addendum: 12/19/20 at [address] I have reviewed and agree with note by business analytics intern. Stephanie Bowen RD
[2020-12-19] MEDS ORDERED: heparin 10,000 units/1 ML INJ IV PRN (17:20)
[2020-12-19] MEDS: heparin 25,000 UNIT/250ml bag 250 ML IV SCH ×2 (17:42→20:58)
[2020-12-19] MEDS: lactobacillus rhamnosus 10,000 MMU CELLS/CAPSULE OGT SCH (20:00)
[2020-12-19] MEDS ORDERED: apixaban 5mg tablet OGT SCH (20:00)
[2020-12-19] MEDS: carvedilol 6.25mg tablet OGT SCH (20:00)
[2020-12-19] MEDS: polyethylene glycol 3350 17gm powd pack OGT SCH (20:31)
[2020-12-19] MEDS ORDERED: insulin glargine (Lantus) pen - multi-dose SQ SCH (21:00)
[2020-12-20] VITALS (23 sets, daily range): BP systolic 86–158; BP diastolic 45–70
[2020-12-20] MEDS: Insulin Reg/NS 100units/100mL 100 ML IV SCH ×4 (01:23→12:06)
[2020-12-20] MEDS: [UNRECOGNIZED DRUG - REMARK] IV SCH ×5 (01:31)
[2020-12-20] MEDS: midazolam 100mg in NS 100ml 100 ML IV SCH ×2 (01:31→21:45)
[2020-12-20] MEDS: heparin 25,000 UNIT/250ml bag 250 ML IV SCH ×2 (01:48→12:26)
[2020-12-20] MEDS: mineral oil/petrolatum ophthal oint EACHEYE SCH ×4 (01:53→21:44)
[2020-12-20] MEDS: hydrALAZINE 20mg/ml inj. IV SCH ×5 (01:53→20:00)
[2020-12-20] MEDS: niCARDipine-NS 40mg/200ml IVPB 200 ML IV SCH ×3 (01:53→18:20)
[2020-12-20] MEDS: ipratropium/albuterol 3ml nebule NEB SCH ×6 (02:56→22:39)
[2020-12-20] MEDS: VANCOMYCIN LEVEL IV SCH (03:00)
[2020-12-20 03:32] LABS: BASOPHILS % (AUTO) 0.3 % (0-1); EOSINOPHILS # (AUTO) 0.4 X10'3 (0-0.9); EOSINOPHILS % (AUTO) 2.5 % (0-6); HEMOGLOBIN 8.5 g/dl (14.0-17.9); LYMPHOCYTES # (AUTO) 0.8 X10'3 (1.1-4.8); LYMPHOCYTES % (AUTO) 5.1 % (21-51); MEAN CORPUSCULAR HEMOGLOBIN 32.3 PG (27.0-31.0); MEAN CORPUSCULAR HGB CONC 32.8 g/dL (33.0-36.5); MEAN CORPUSCULAR VOLUME 98.4 FL (78-98); MEAN PLATELET VOLUME 8.8 FL (7.4-10.4); MONOCYTES % (AUTO) 12.7 % (2-12); NEUTROPHILS # (AUTO) 12.5 X10'3 (1.8-7.7); NEUTROPHILS % (AUTO) 79.4 % (42-75); PLATELET COUNT 233 X10'3 (140-440); RED BLOOD COUNT 2.64 X10'6 (4.70-6.10); RED CELL DISTRIBUTION WIDTH 15.4 % (11.5-14.5); WHITE BLOOD COUNT 15.7 X10'3 (4.5-11.0)
[2020-12-20 03:46] LABS: ABG BASE EXCESS -4.1 mmol/L (-2.0-2.0); ABG HCO3 21.9 mmol/L (22.0-26.0); ABG OXYGEN SATURATION 96.7 % (94-97); ABG PCO2 (T) 42.7 mmHg (35.0-48.0); ABG PO2 (T) 90.9 mmHg (75.0-100.0); FCOHb 0.3 % (0.0-3.9); FMetHb 0.3 % (0.0-1.5); FO2Hb 96.1 % (94-97); PATIENT TEMPERATURE 36.5; PEEP 5 cm H2O; RESPIRATORY RATE 16 b/min; TIDAL VOLUME 500 mL; TOTAL HEMOGLOBIN 9.3 G/dl (14.0-18.0)
[2020-12-20 03:47] LABS: ALANINE AMINOTRANSFERASE 182 U/L (12-78); ALBUMIN 1.6 G/DL (3.4-5.0); ALBUMIN/GLOBULIN RATIO 0.4 (1.1-1.5); ALKALINE PHOSPHATASE 72 IU/L (46-116); ANION GAP 10 (8-16); ASPARTATE AMINO TRANSFERASE 29 U/L (10-37); BILIRUBIN,TOTAL 0.7 MG/DL (0.1-1.0); BLOOD UREA NITROGEN 40 MG/DL (7-18); BUN/CREATININE RATIO 9.7 (5.4-32.0); CALCIUM 7.9 MG/DL (8.5-10.1); CHLORIDE 99 MMOL/L (99-107); CREATININE 4.14 MG/DL (0.60-1.10); GLUCOSE 137 MG/DL (70-104); MAGNESIUM 1.7 MG/DL (1.5-2.4); POTASSIUM 3.7 MMOL/L (3.5-5.1); SODIUM 133 MMOL/L (135-145); TOTAL CARBON DIOXIDE 23.6 MMOL/L (24-32); TOTAL PROTEIN 5.4 G/DL (6.4-8.2); TRIGLYCERIDES 80 MG/DL (20-135); VANCOMYCIN,RANDOM 24.6 UG/ML; eGFR 15 ML/MIN
[2020-12-20] MEDS: FENTANYL 1000MCG/NS 100 ML BAG /PF IV PRN ×2 (05:58→18:57)
--- NOTE | 2020-12-20 06:00 | NUR ---
RN Note -No neuro changes. Sedation turned up to control blood pressure
[2020-12-20 07:19] LABS: TOTAL CELLS COUNTED 100
[2020-12-20 07:20] LABS: GIANT PLATELET FEW; PLATELET ESTIMATE NORMAL
[2020-12-20 07:21] LABS: LARGE PLATELETS FEW
[2020-12-20] MEDS: K, MAG and/or Phos replacement - Verify level? MC SCH (08:00)
[2020-12-20] MEDS: lisinopril 20mg tablet OGT SCH (08:12)
[2020-12-20] MEDS: famotidine/PF 10 mg/ml inj IV SCH (08:12)
[2020-12-20] MEDS: carvedilol 6.25mg tablet OGT SCH ×2 (08:13→21:44)
[2020-12-20] MEDS: calcium acetate 667mg (PhosLO) capsule OGT SCH ×3 (08:13→17:31)
[2020-12-20] MEDS: atorvastatin 20mg tablet OGT SCH (08:13)
[2020-12-20] MEDS: docusate sodium 100mg/10ml UD cup OGT SCH ×2 (08:13→20:00)
[2020-12-20] MEDS: venlafaxine 37.5mg tablet OGT SCH ×3 (08:14→21:43)
[2020-12-20] MEDS: vitamin D (cholecalciferol) 1,000 unit tablet OGT SCH (08:14)
[2020-12-20] MEDS: lactobacillus rhamnosus 10,000 MMU CELLS/CAPSULE OGT SCH ×2 (08:14→21:43)
[2020-12-20] MEDS: ARIPIPRAZOLE 10 MG TABLET OGT SCH (08:14)
[2020-12-20] MEDS: levetiracetam-NS 1000mg/100ml 100 ML IV SCH ×2 (08:15→21:48)
[2020-12-20] MEDS: piperacillin/tazobactam inj. 3.375 GM in NS 50ml IV SCH ×2 (08:16→21:44)
[2020-12-20] MEDS: budesonide 0.5mg/2ml UD nebule IH SCH ×2 (08:29→19:17)
[2020-12-20] MEDS: polyethylene glycol 3350 17gm powd pack OGT SCH (08:33)
--- NOTE | 2020-12-20 10:03 | NUR ---
SWITCHED VENT OUT FOR PREVENTIVE MAINTAIN
--- NOTE | 2020-12-20 10:04 | NUR ---
SWITCHED OUT VENT FOR PREVENTIVE MAINTENANCE Addendum: 12/20/20 at 1004 by Baldomero Segundo RT Amended: Links added.
--- NOTE | 2020-12-20 11:39 | NUR ---
1100 assumed care of pt agree with previous food service helper.
--- NOTE | 2020-12-20 12:31 | NUR ---
TPN REDUCED TO 45
[2020-12-20] MEDS ORDERED: insulin glargine (Lantus) pen - multi-dose SQ SCH (12:52)
[2020-12-20 14:41] LABS: HEMATOCRIT 26.5 % (42.0-52.0); HEMOGLOBIN 8.7 g/dl (14.0-17.9); MEAN CORPUSCULAR HEMOGLOBIN 32.5 PG (27.0-31.0); MEAN CORPUSCULAR HGB CONC 32.8 g/dL (33.0-36.5); MEAN CORPUSCULAR VOLUME 99.1 FL (78-98); MEAN PLATELET VOLUME 8.6 FL (7.4-10.4); PLATELET COUNT 248 X10'3 (140-440); RED BLOOD COUNT 2.67 X10'6 (4.70-6.10); RED CELL DISTRIBUTION WIDTH 15.1 % (11.5-14.5); WHITE BLOOD COUNT 14.9 X10'3 (4.5-11.0)
--- NOTE | 2020-12-20 18:30 | NUR ---
Patient in room [facility] 2013. I have received report from day shift RN and had the opportunity to ask questions and assume patient care. Addendum: 12/20/20 at 1950 by Mercedes Louis RN Amended: Links added.
[2020-12-21] VITALS (15 sets, daily range): BP systolic 90–119; BP diastolic 52–64
[2020-12-21] MEDS: mineral oil/petrolatum ophthal oint EACHEYE SCH ×2 (02:00→08:27)
[2020-12-21] MEDS: hydrALAZINE 20mg/ml inj. IV SCH ×2 (02:00→08:00)
[2020-12-21] MEDS: niCARDipine-NS 40mg/200ml IVPB 200 ML IV SCH (02:20)
[2020-12-21] MEDS: ipratropium/albuterol 3ml nebule NEB SCH ×3 (02:38→11:32)
[2020-12-21 02:50] LABS: ABG BASE EXCESS -3.5 mmol/L (-2.0-2.0); ABG HCO3 21.6 mmol/L (22.0-26.0); ABG OXYGEN SATURATION 97.6 % (94-97); ABG PCO2 (T) 36.5 mmHg (35.0-48.0); ABG PO2 (T) 96.7 mmHg (75.0-100.0); FCOHb 0.1 % (0.0-3.9); FMetHb 0.4 % (0.0-1.5); FO2Hb 97.1 % (94-97); PATIENT TEMPERATURE 35.7; PEEP 5 cm H2O; RESPIRATORY RATE 22 b/min; TIDAL VOLUME 500 mL; TOTAL HEMOGLOBIN 7.7 G/dl (14.0-18.0)
[2020-12-21] MEDS: VANCOMYCIN LEVEL IV SCH (03:00)
[2020-12-21 04:13] LABS: BASOPHILS # (AUTO) 0.1 X10'3 (0-0.2); BASOPHILS % (AUTO) 0.6 % (0-1); EOSINOPHILS # (AUTO) 0.4 X10'3 (0-0.9); EOSINOPHILS % (AUTO) 2.8 % (0-6); HEMATOCRIT 25.4 % (42.0-52.0); HEMOGLOBIN 8.3 g/dl (14.0-17.9); LYMPHOCYTES % (AUTO) 6.9 % (21-51); MEAN CORPUSCULAR HEMOGLOBIN 32.3 PG (27.0-31.0); MEAN CORPUSCULAR HGB CONC 32.7 g/dL (33.0-36.5); MEAN CORPUSCULAR VOLUME 98.7 FL (78-98); MEAN PLATELET VOLUME 8.6 FL (7.4-10.4); MONOCYTES # (AUTO) 1.6 X10'3 (0-0.9); MONOCYTES % (AUTO) 10.8 % (2-12); NEUTROPHILS # (AUTO) 11.9 X10'3 (1.8-7.7); NEUTROPHILS % (AUTO) 78.9 % (42-75); PLATELET COUNT 255 X10'3 (140-440); RED BLOOD COUNT 2.57 X10'6 (4.70-6.10); RED CELL DISTRIBUTION WIDTH 15.3 % (11.5-14.5); WHITE BLOOD COUNT 15.1 X10'3 (4.5-11.0)
[2020-12-21 04:17] LABS: ALANINE AMINOTRANSFERASE 129 U/L (12-78); ALBUMIN 1.5 G/DL (3.4-5.0); ALBUMIN/GLOBULIN RATIO 0.4 (1.1-1.5); ALKALINE PHOSPHATASE 70 IU/L (46-116); ANION GAP 12 (8-16); ASPARTATE AMINO TRANSFERASE 24 U/L (10-37); BILIRUBIN,TOTAL 0.6 MG/DL (0.1-1.0); BLOOD UREA NITROGEN 59 MG/DL (7-18); BUN/CREATININE RATIO 10.4 (5.4-32.0); CALCIUM 8.6 MG/DL (8.5-10.1); CHLORIDE 96 MMOL/L (99-107); GLUCOSE 114 MG/DL (70-104); MAGNESIUM 1.8 MG/DL (1.5-2.4); PHOSPHORUS 4.5 MG/DL (2.3-4.5); POTASSIUM 3.6 MMOL/L (3.5-5.1); SODIUM 130 MMOL/L (135-145); TOTAL CARBON DIOXIDE 22.3 MMOL/L (24-32); TOTAL PROTEIN 5.3 G/DL (6.4-8.2); eGFR 10 ML/MIN
[2020-12-21 04:45] LABS: PLATELET ESTIMATE NORMAL; TOTAL CELLS COUNTED 100
[2020-12-21 04:46] LABS: GIANT PLATELET FEW; POLYCHROMASIA FEW
--- NOTE | 2020-12-21 05:23 | NUR ---
Update given to Tele ICU by abrasives sales representative. No new orders at this time
--- NOTE | 2020-12-21 06:30 | NUR ---
Problems reprioritized. Patient report given, questions answered & plan of care reviewed with Jefe GALVAN.
[2020-12-21] MEDS: budesonide 0.5mg/2ml UD nebule IH SCH (07:46)
[2020-12-21] MEDS: venlafaxine 37.5mg tablet OGT SCH ×2 (08:00→12:39)
[2020-12-21] MEDS: calcium acetate 667mg (PhosLO) capsule OGT SCH ×2 (08:00→12:39)
[2020-12-21] MEDS: K, MAG and/or Phos replacement - Verify level? MC SCH (08:00)
[2020-12-21] MEDS ORDERED: heparin 1,000 units/ml 10ml inj HE ONE ×2 (08:00)
[2020-12-21] MEDS ORDERED: normal saline 1000ml 250 ML IV PRN (08:00)
[2020-12-21] MEDS ORDERED: normal saline 1000ml 100 ML IV PRN (08:00)
[2020-12-21] MEDS ORDERED: EPOETIN ALFA-EPBX 20,000 UNIT/ML 1 ML MDV IV ONE (08:00)
[2020-12-21] MEDS: heparin 25,000 UNIT/250ml bag 250 ML IV SCH (08:11)
[2020-12-21] MEDS: piperacillin/tazobactam inj. 3.375 GM in NS 50ml IV SCH (08:15)
[2020-12-21] MEDS: levetiracetam-NS 1000mg/100ml 100 ML IV SCH (08:15)
[2020-12-21] MEDS: lactobacillus rhamnosus 10,000 MMU CELLS/CAPSULE OGT SCH (08:16)
[2020-12-21] MEDS: carvedilol 6.25mg tablet OGT SCH (08:16)
[2020-12-21] MEDS: vitamin D (cholecalciferol) 1,000 unit tablet OGT SCH (08:16)
[2020-12-21] MEDS: atorvastatin 20mg tablet OGT SCH (08:16)
[2020-12-21] MEDS: docusate sodium 100mg/10ml UD cup OGT SCH (08:16)
[2020-12-21] MEDS: ARIPIPRAZOLE 10 MG TABLET OGT SCH (08:17)
[2020-12-21] MEDS: famotidine/PF 10 mg/ml inj IV SCH (08:17)
[2020-12-21] MEDS: lisinopril 20mg tablet OGT SCH (08:17)
[2020-12-21] MEDS: FENTANYL 1000MCG/NS 100 ML BAG /PF IV PRN (08:27)
[2020-12-21] MEDS ORDERED: dextrose 5%-normal saline 1,000 ML IV SCH (10:55)
--- NOTE | 2020-12-21 11:28 | NUR ---
notified MD of abnormal lab values and that TPN was stopped befor shift and no tube feeding was started. New orders received for D5NS @ 60cc/hr.
--- NOTE | 2020-12-21 14:15 | NUR ---
MD, RT, RN and family at bedside. Patient per MD and family extubated to comfort care.
--- NOTE | 2020-12-21 14:56 | NUR ---
RN IS TO DOCUMENT YES TO ALL APPLICABLE AREAS Pronouncement of : 1. Time Physician Notified: 1455 2. Date of : 12/21/2020 3. Time of : 1455 4. DNR/Withdraw life support documented: Yes 5. Monitor strip has been placed on chart: Yes 6. Assessment process is of one-minute duration and includes following criteria: a) Patient is unresponsive to all stimuli: Yes b) Pupils fixed and non-reactive: Yes c) Auscultation of precordium reveals absence of heart tones:Yes d) Auscultation of lungs reveals absence of breath sounds: Yes e) Absence of blood pressure / all vital signs: Yes f) QRS complexes are not present on monitor / EKG strip: Yes g) Pacer spikes without capture: N/A 4. Comments:
--- NOTE | 2020-12-21 16:30 | NUR ---
Mortuary at bedside to excelsior picker patient. All belongings sent home with family
[2020-12-26] MEDS ORDERED: apixaban 5mg tablet OGT SCH (20:00)
== END 2020-12-21 16:56 | disposition expired | DRG 720 ==
LOC: ER 16:31 → ED HOLD 17:22 → ICU 2S 19:30 → CICU 2S 12-18 12:13
PROVIDERS: ADMIT Internal Medicine Critical Care Medicine; ATTEND Internal Medicine Critical Care Medicine
PROC: 5A1955Z Respiratory Ventilation, Greater than 96 Consecutive Hours (ICD-10-PCS; principal; 2020-12-10)
PROC: 0BH17EZ Insertion of Endotracheal Airway into Trachea, Via Natural or Artificial Opening (ICD-10-PCS; 2020-12-10)
PROC: 03HY32Z Insertion of Monitoring Device into Upper Artery, Percutaneous Approach (ICD-10-PCS; 2020-12-10)
PROC: 02HV33Z Insertion of Infusion Device into Superior Vena Cava, Percutaneous Approach (ICD-10-PCS; 2020-12-10)
PROC: 5A1D90Z Performance of Urinary Filtration, Continuous, Greater than 18 hours Per Day (ICD-10-PCS; 2020-12-12)
PROC: 06HY33Z Insertion of Infusion Device into Lower Vein, Percutaneous Approach (ICD-10-PCS; 2020-12-12)
PROC: 5A1D90Z Performance of Urinary Filtration, Continuous, Greater than 18 hours Per Day (ICD-10-PCS; 2020-12-13)
PROC: 0BJ08ZZ Inspection of Tracheobronchial Tree, Via Natural or Artificial Opening Endoscopic (ICD-10-PCS; 2020-12-13)
PROC: 5A1D90Z Performance of Urinary Filtration, Continuous, Greater than 18 hours Per Day (ICD-10-PCS; 2020-12-14)
PROC: 4A10X4Z Monitoring of Central Nervous Electrical Activity, External Approach (ICD-10-PCS; 2020-12-14)
PROC: 5A1D90Z Performance of Urinary Filtration, Continuous, Greater than 18 hours Per Day (ICD-10-PCS; 2020-12-15)
PROC: 4A10X4Z Monitoring of Central Nervous Electrical Activity, External Approach (ICD-10-PCS; 2020-12-15)
PROC: 5A1D90Z Performance of Urinary Filtration, Continuous, Greater than 18 hours Per Day (ICD-10-PCS; 2020-12-16)
DX: A41.9 Sepsis, unspecified organism (principal); E11.59 Type 2 diabetes mellitus with other circulatory complications; E11.65 Type 2 diabetes mellitus with hyperglycemia; E78.5 Hyperlipidemia, unspecified; E87.5 Hyperkalemia; G93.1 Anoxic brain damage, not elsewhere classified; I11.0 Hypertensive heart disease with heart failure; I27.23 Pulmonary hypertension due to lung diseases and hypoxia; I27.81 Cor pulmonale (chronic); I46.9 Cardiac arrest, cause unspecified; E66.01 Morbid (severe) obesity due to excess calories; Z60.2 Problems related to living alone; I82.432 Acute embolism and thrombosis of left popliteal vein; I50.42 Chronic combined systolic (congestive) and diastolic (congestive) heart failure; J18.9 Pneumonia, unspecified organism; J43.9 Emphysema, unspecified; F12.90 Cannabis use, unspecified, uncomplicated; J96.21 Acute and chronic respiratory failure with hypoxia; G47.33 Obstructive sleep apnea (adult) (pediatric); N17.9 Acute kidney failure, unspecified; R65.21 Severe sepsis with septic shock; Z87.891 Personal history of nicotine dependence; Z91.19 Patient's noncompliance with other medical treatment and regimen; Z99.81 Dependence on supplemental oxygen; Z68.38 Body mass index [BMI] 38.0-38.9, adult; Z79.899 Other long term (current) drug therapy; Z66 Do not resuscitate
CPT/HCPCS: 36415; 36600; 70450; 70544; 70551; 71045; 74018; 76700; 76775; 80048; 80053; 80069; 80076; 80202; 80305; 81001; 82150; 82248; 82330; 82550; 82553; 82570; 82803; 82810; 82948; 83036; 83605; 83690; 83735; 84100; 84132; 84134; 84145; 84156; 84300; 84478; 84484; 85007; 85018; 85025; 85027; 85379; 85610; 85730; 86706; 87040; 87070; 87077; 87081; 87088; 87186; 87207; 87340; 87635; 90935; 93005; 93306; 93970; 94002; 94003; 94640; 94760; 94799; 95720; 96365; 99291; E1594; G0378; J0360; J0692; J1644; J1815; J1953; J2060; J2250; J2543; J2704; J3010; J3370; J3480; J3490; J7030; J7042; J7050; J7626; P9047; Q4081